=== PATIENT | male | born 1940 | race Caucasian/White ===

== ENCOUNTER 2017-10-12 22:11 | Inpatient (IN) | payer OTHER, MEDICARE ==
[~2017-10-12] VITALS: Ht 152.4 cm; Wt 43.6 kg
[2017-10-12 22:13] VITALS: BP 154/78; PULSE 76; RESP 16; TEMP 98.1; O2SAT 99
[2017-10-12 22:49] VITALS: BP 184/79; PULSE 75; RESP 14; TEMP 98.5; O2SAT 98
[2017-10-12] MEDS ORDERED: TAMS0.4C4 PO (22:59)
[2017-10-12] MEDS ORDERED: DONE10TA7 PO (22:59)
[2017-10-12] MEDS ORDERED: VITA100064 PO (22:59)
[2017-10-12] MEDS ORDERED: OMEP20TA93 PO (22:59)
[2017-10-12] MEDS ORDERED: QUET1TAB7 PO (22:59)
[2017-10-12] MEDS ORDERED: CLON0.5T PO (22:59)
[2017-10-12] MEDS ORDERED: FINA5TAB2 (22:59)
[2017-10-12] MEDS ORDERED: ASPI-516 CHEW (22:59)
[2017-10-12] MEDS ORDERED: SIMV20TA PO (22:59)
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
[2017-10-13 00:21] LABS: AUTOMATED NEUTROPHIL # 5.8 TH/MM3 (1.8-7.7); BASOPHIL % 0.6 % (0.0-2.0); EOSINOPHIL # 0.1 TH/MM3 (0-0.4); HEMATOCRIT 38.4 % (39.0-51.0); LYMPH % 20.7 % (9.0-44.0); LYMPHOCYTE # 1.8 TH/MM3 (1.0-4.8); MEAN CELL VOLUME 93.1 FL (80.0-100.0); MEAN CORPUSCULAR HEMOGLOBIN 31.5 PG (27.0-34.0); MEAN CORPUSCULAR HGB CONC 33.8 % (32.0-36.0); MEAN PLATELET VOLUME 7.3 FL (7.0-11.0); MONO % 10.1 % (0.0-8.0); MONOCYTE # 0.9 TH/MM3 (0-0.9); NEUT % 67.6 % (16.0-70.0); PLATELET COUNT 179 TH/MM3 (150-450); RED BLOOD COUNT 4.12 MIL/MM3 (4.50-5.90); RED CELL DISTRIBUTION WIDTH 12.6 % (11.6-17.2); WHITE BLOOD COUNT 8.6 TH/MM3 (4.0-11.0)
[2017-10-13] MEDS ORDERED: LORazepam 2 MG/ML VIAL IV PUSH ONE (00:30)
[2017-10-13 00:38] LABS: ALBUMIN 3.6 GM/DL (3.4-5.0); AST (GOT) 26 U/L (15-37); BICARBONATE 24.3 MEQ/L (21.0-32.0); BLOOD UREA NITROGEN 16 MG/DL (7-18); CALCIUM 8.4 MG/DL (8.5-10.1); CHLORIDE 105 MEQ/L (98-107); CREATININE 0.91 MG/DL (0.60-1.30); GLOMERULAR FILTRATION RATE 81 ML/MIN (>89); GLUCOSE,RANDOM 77 MG/DL (74-106); SODIUM (NA) 138 MEQ/L (136-145)
[2017-10-13 00:48] LABS: ALKALINE PHOSPHATASE 73 U/L (45-117); ALT (GPT) 13 U/L (12-78); TOTAL BILIRUBIN ADULT 0.3 MG/DL (0.2-1.0); TOTAL PROTEIN 7.3 GM/DL (6.4-8.2)
[2017-10-13 01:57] LABS: FREE T4 1.16 NG/DL (0.76-1.46)
[2017-10-13] MEDS ORDERED: HALOPERIDOL LACTATE 5 MG/ML AMP ONE (03:20)
[2017-10-13] MEDS ORDERED: HALOPERIDOL LACTATE 5 MG/ML AMP IM ONE (03:30)
[2017-10-13 06:46] VITALS: BP 179/78; PULSE 75; RESP 16; O2SAT 97
[2017-10-13 09:01] VITALS: BP 144/67; PULSE 74; RESP 16; O2SAT 98
[2017-10-13 12:30] VITALS: BP 154/72; PULSE 74; RESP 18; O2SAT 97
[2017-10-13] MEDS ORDERED: DONEPEZIL HCL 5 MG TAB PO ONE (14:00)
[2017-10-13] MEDS ORDERED: clonazePAM 0.5 MG TAB PO ONE (14:00)
[2017-10-13] MEDS ORDERED: TAMSULOSIN HCL 0.4 MG CAP PO ONE (14:00)
[2017-10-13] MEDS ORDERED: QUEtiapine FUMARATE 25 MG TAB PO ONE (14:00)
[2017-10-13] MEDS ORDERED: FINASTERIDE 5 MG TAB PO ONE (14:00)
[2017-10-13 18:30] VITALS: BP 146/70
[2017-10-13 20:00] VITALS: BP 132/66; PULSE 92; RESP 16; TEMP 98; O2SAT 98
[2017-10-14 02:40] VITALS: BP 145/70; PULSE 75; RESP 18; O2SAT 98
[2017-10-14 06:35] VITALS: BP 133/65; PULSE 69; RESP 18; O2SAT 98
[2017-10-14 15:27] VITALS: BP 163/71; PULSE 96; RESP 15; O2SAT 98
[2017-10-15 08:34] VITALS: BP 121/59; PULSE 68; RESP 16; TEMP 98.6; O2SAT 99
[2017-10-15 13:52] VITALS: BP 116/56; PULSE 70; RESP 18; O2SAT 99
[2017-10-15 17:44] VITALS: BP 143/65; PULSE 67; RESP 14; O2SAT 99
[2017-10-15 21:38] VITALS: BP 163/67; PULSE 73; RESP 16; O2SAT 99
[2017-10-16 05:51] VITALS: BP 131/62; PULSE 70; RESP 16; O2SAT 98
[2017-10-16 07:20] VITALS: BP 129/65; PULSE 67; RESP 15; TEMP 98; O2SAT 99
[2017-10-16 12:22] VITALS: BP 121/62; PULSE 68; RESP 17; O2SAT 99
[2017-10-16 19:18] VITALS: BP 131/59; PULSE 70; RESP 16; O2SAT 97
[2017-10-17 06:16] VITALS: BP 128/79; PULSE 79; RESP 18; O2SAT 98
[2017-10-17 09:12] VITALS: BP 149/67; PULSE 65; RESP 17; TEMP 98.3; O2SAT 100
[2017-10-17 13:49] VITALS: BP 141/68; PULSE 86; RESP 17; O2SAT 98
[2017-10-17] MEDS ORDERED: CHOLECALCIFEROL (VIT D3) 1000 UNIT TAB PO SCH (15:30)
[2017-10-17] MEDS ORDERED: ASPIRIN 81 MG CHEW TAB CHEW SCH (15:30)
[2017-10-17] MEDS ORDERED: FINASTERIDE 5 MG TAB PO SCH (15:30)
[2017-10-17] MEDS: PANTOPRAZOLE SOD 20 MG DELAYED RELEASE TAB PO SCH (16:54)
[2017-10-17] MEDS ORDERED: QUEtiapine FUMARATE 25 MG TAB PO SCH (21:00)
[2017-10-17] MEDS ORDERED: DONEPEZIL HCL 5 MG TAB PO SCH (21:00)
[2017-10-17] MEDS ORDERED: TAMSULOSIN HCL 0.4 MG CAP PO SCH (21:00)
[2017-10-17 21:09] VITALS: BP 161/76; PULSE 61; RESP 18; O2SAT 98
[2017-10-17] MEDS: clonazePAM 0.5 MG TAB PO SCH (21:11)
[2017-10-18] VITALS (45 sets, daily range): BP systolic 91–156; BP diastolic 48–92; PULSE 56–128; RESP 14–32; TEMP 98.4–103.5; O2SAT 79–100
[2017-10-18] MEDS ORDERED: ETOMIDATE 40 MG/20 ML VIAL ONE (04:41)
[2017-10-18] MEDS ORDERED: PIPERACIL-TAZO 3.375 GM PREMIX 50 ML IV ONE (04:45)
[2017-10-18] MEDS ORDERED: VANCOMYCIN INJ 1,000 MG in SODIUM CHLOR 0.9% 250 ML INJ 250 ML IV ONE (04:45)
[2017-10-18] MEDS ORDERED: ACETAMINOPHEN 650 MG SUPP RECTAL ONE (04:45)
[2017-10-18] MEDS ORDERED: PROPOFOL 500 MG/50 ML INJ 50 ML ONE (04:51)
[2017-10-18] MEDS ORDERED: SODIUM CHLOR 0.9% 1000 ML INJ 1,000 ML IV ONE ×3 (05:00→05:30)
[2017-10-18] MEDS ORDERED: SODIUM CHLOR 0.9% 1000 ML INJ 1,000 ML IV SCH (05:00)
[2017-10-18] MEDS ORDERED: SODIUM CHLORIDE 0.9% FLUSH 10 ML FLUSH IV FLUSH PRN (05:15)
[2017-10-18] MEDS ORDERED: CHLORHEXIDINE GLUCONATE 2 % 1 PACK (2 CLOTHS) TOP PRN (05:15)
[2017-10-18] MEDS ORDERED: ACETAMINOPHEN 325 MG TAB PO PRN (05:15)
[2017-10-18] MEDS ORDERED: BISACODYL 10 MG SUPP RECTAL PRN (05:15)
[2017-10-18] MEDS ORDERED: RESP: ALBUTEROL 2.5 MG/IPRATROPIUM 0.5 MG NEB (PRN) INH (05:15)
[2017-10-18] MEDS ORDERED: SENNOSIDES 8.6 MG TAB PO PRN (05:15)
[2017-10-18] MEDS ORDERED: LACTULOSE SYRUP 20 GM/30 ML CUP PO PRN (05:15)
[2017-10-18] MEDS ORDERED: Vancomycin Consult Pharmacy 1 EA OTHER SCH (05:15)
[2017-10-18] MEDS ORDERED: MAGNESIUM HYDROXIDE SUSP 30 ML CUP PO PRN (05:15)
[2017-10-18] MEDS ORDERED: ONDANSETRON HCL 4 MG/2 ML VIAL IV PUSH PRN (05:15)
[2017-10-18] MEDS ORDERED: MIDAZOLAM HCL 2 MG/2 ML VIAL IV PUSH PRN (05:15)
[2017-10-18] MEDS ORDERED: MISCELLANEOUS NURSING INFORMATION XX SCH (05:15)
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
[2017-10-18] MEDS: HEPARIN SODIUM - SQ 10,000 UNITS/ML VIAL SQ SCH ×3 (06:00→20:38)
[2017-10-18] MEDS ORDERED: AZTREONAM INJ 2,000 MG in SODIUM CHLORIDE 0.9% INJ 100 ML IV SCH (06:00)
[2017-10-18 06:02] LABS: AUTOMATED NEUTROPHIL # 8.4 TH/MM3 (1.8-7.7); BASOPHIL % 0.2 % (0.0-2.0); EOSINOPHIL % 0.4 % (0.0-4.0); HEMATOCRIT 41.8 % (39.0-51.0); HEMOGLOBIN 14.5 GM/DL (13.0-17.0); LYMPH % 5.6 % (9.0-44.0); LYMPHOCYTE # 0.5 TH/MM3 (1.0-4.8); MEAN CELL VOLUME 93.5 FL (80.0-100.0); MEAN CORPUSCULAR HEMOGLOBIN 32.3 PG (27.0-34.0); MEAN CORPUSCULAR HGB CONC 34.6 % (32.0-36.0); MEAN PLATELET VOLUME 7.8 FL (7.0-11.0); MONO % 4.9 % (0.0-8.0); MONOCYTE # 0.5 TH/MM3 (0-0.9); NEUT % 88.9 % (16.0-70.0); PLATELET COUNT 243 TH/MM3 (150-450); RED BLOOD COUNT 4.48 MIL/MM3 (4.50-5.90); RED CELL DISTRIBUTION WIDTH 13.1 % (11.6-17.2); WHITE BLOOD COUNT 9.4 TH/MM3 (4.0-11.0)
--- NOTE | 2017-10-18 06:18 | RADRPT ---
EXAM DATE/TIME: 10/18/2017 05:06 [facility] COMPARISON: No previous studies available for comparison. INDICATIONS : Shortness of breath. Status post intubation. MEDICAL HISTORY : None. SURGICAL HISTORY : None. ENCOUNTER: Initial ACUITY: 1 day PAIN SCORE: Non-responsive. LOCATION: chest FINDINGS: Mild right base infiltrate seen, appears to mostly be in the lower lobe. Lungs otherwise appear reaso nably clear. No pleural effusion. No pneumothorax. Heart size within normal limits. Endotracheal tube tip is approximately 1.4 cm above the jay. Nasogastric tube courses into the sto mach. CONCLUSION: 1. Mild right base infiltrate. 2. Endotracheal tube tip is close to the jay. Dinesh Bal MD on October 18, 2017 at 6:16 Board Certified Radiologist. This report was verified electronically.
[2017-10-18 06:33] LABS: ALBUMIN 3.3 GM/DL (3.4-5.0); ALT (GPT) 18 U/L (12-78); AST (GOT) 21 U/L (15-37); BICARBONATE 23.9 MEQ/L (21.0-32.0); BLOOD UREA NITROGEN 20 MG/DL (7-18); CALCIUM 8.2 MG/DL (8.5-10.1); CHLORIDE 102 MEQ/L (98-107); CREATININE 1.16 MG/DL (0.60-1.30); GLOMERULAR FILTRATION RATE 61 ML/MIN (>89); GLUCOSE,RANDOM 172 MG/DL (74-106); MAGNESIUM 2.3 MG/DL (1.5-2.5); PHOSPHORUS 3.7 MG/DL (2.5-4.9); SODIUM (NA) 138 MEQ/L (136-145)
[2017-10-18 06:35] LABS: ALKALINE PHOSPHATASE 79 U/L (45-117); TOTAL BILIRUBIN ADULT 0.5 MG/DL (0.2-1.0); TOTAL PROTEIN 7.2 GM/DL (6.4-8.2)
[2017-10-18] MEDS: SODIUM CHLOR 0.9% 1000 ML INJ 1,000 ML IV SCH ×2 (06:36→14:12)
[2017-10-18] MEDS: CHLORHEXIDINE 0.12% (ORAL KIT) 15 ML CUP MT SCH ×2 (08:00→20:00)
[2017-10-18] MEDS: PANTOPRAZOLE SOD 20 MG DELAYED RELEASE TAB PO SCH (09:00)
[2017-10-18] MEDS ORDERED: FINASTERIDE 5 MG TAB SCH (09:00)
[2017-10-18] MEDS: RESP: ALBUTEROL 2.5 MG/IPRATROPIUM 0.5 MG NEB (SCH) INH ×5 (09:20→22:53)
[2017-10-18] MEDS: FAMOTIDINE 20 MG/2 ML VIAL IV PUSH SCH ×2 (09:36→20:38)
[2017-10-18] MEDS: PRAVASTATIN SOD 40 MG TAB PO SCH (09:37)
[2017-10-18] MEDS: SODIUM CHLORIDE 0.9% FLUSH 10 ML FLUSH IV FLUSH SCH ×2 (09:37→20:39)
[2017-10-18] MEDS: CHOLECALCIFEROL (VIT D3) 1000 UNIT TAB PO SCH (09:37)
[2017-10-18] MEDS: FINASTERIDE 5 MG TAB PO SCH (09:37)
[2017-10-18] MEDS: DOCUSATE SODIUM 50 MG/SENNA 8.6 MG TAB PO SCH ×2 (09:37→20:37)
[2017-10-18] MEDS: clonazePAM 0.5 MG TAB PO SCH ×2 (09:37→20:37)
[2017-10-18] MEDS: ASPIRIN 81 MG CHEW TAB CHEW SCH (09:37)
[2017-10-18] MEDS: ARTIFICIAL TEARS OPTH SOLN 15 ML BTL EACH EYE SCH ×3 (09:39→18:09)
[2017-10-18] MEDS: PIPERACIL-TAZO 4.5 GM PREMIX 100 ML IV SCH ×3 (10:44→23:06)
[2017-10-18] MEDS ORDERED: POTASSIUM PHOSPHATE MONOBASIC 500 MG TAB PO/TUBE PRN (12:00)
[2017-10-18] MEDS ORDERED: MAGNESIUM SULFATE INJ 2 GM in SODIUM CHLORIDE 0.9% INJ 96 ML IV PRN (12:00)
[2017-10-18] MEDS ORDERED: POTASSIUM CHLOR 20 MEQ PREMIX 100 ML IV PRN (12:00)
[2017-10-18] MEDS ORDERED: POTASSIUM CHLOR 40 MEQ PREMIX 100 ML IV PRN ×2 (12:00)
[2017-10-18] MEDS ORDERED: GLUCAGON 1 MG/ML VIAL OTHER PRN (12:00)
[2017-10-18] MEDS ORDERED: SODIUM PHOSPHATE INJ 30 MMOL in SODIUM CHLOR 0.9% 250 ML INJ 240 ML IV PRN (12:00)
[2017-10-18] MEDS: INSULIN NovoLIN REGULAR SUPPLEMENTAL SCALE SQ SCH ×3 (12:00→20:00)
[2017-10-18] MEDS ORDERED: POTASSIUM CHLORIDE 25 MEQ EFFERVESCENT TAB PO PRN (12:00)
[2017-10-18] MEDS ORDERED: MAGNESIUM SULFATE INJ 4 GM in SODIUM CHLORIDE 0.9% INJ 92 ML IV PRN (12:00)
[2017-10-18] MEDS ORDERED: POTASSIUM PHOSPHATE MONOBASIC 500 MG TAB PO PRN (12:00)
[2017-10-18] MEDS ORDERED: MAGNESIUM OXIDE 400 MG TAB PO PRN (12:00)
[2017-10-18] MEDS ORDERED: POTASSIUM PHOSPHATE INJ 30 MMOL in SODIUM CHLOR 0.9% 250 ML INJ 250 ML IV PRN (12:00)
[2017-10-18 13:30] LABS: BACTERIA, URINE RARE /hpf; BILIRUBIN, URINE NEG (NEG); BLOOD, URINE MOD (NEG); GLUCOSE,URINE NEG (NEG); KETONE, URINE TRACE mg/dL (NEG); MUCUS URINE FEW /lpf (OCC); NITRITE,URINE NEG (NEG); SQUAMOUS EPITHELIAL CELL URINE <1 /hpf (0-5); URINE COLOR YELLOW (YELLW/STRAW); URINE LEUKOCYTE ESTERASE LARGE (NEG); WHITE BLOOD CELL CLUMPS MANY
[2017-10-18] MEDS: PROPOFOL 1000 MG/100 ML INJ 100 ML IV PRN (14:12)
[2017-10-18] MEDS: POTASSIUM CHLOR 20 MEQ PREMIX 100 ML IV PRN (15:56)
[2017-10-18] MEDS ORDERED: DEXTROSE 50% IN WATER 50 ML SYRINGE ONE (17:13)
[2017-10-18] MEDS: DEXTROSE 50% IN WATER 50 ML VIAL(D50) IV PUSH PRN (18:08)
[2017-10-18] MEDS: QUEtiapine FUMARATE 25 MG TAB PO SCH (20:37)
[2017-10-18] MEDS: TAMSULOSIN HCL 0.4 MG CAP PO SCH (20:37)
[2017-10-18] MEDS: DONEPEZIL HCL 5 MG TAB PO SCH (20:38)
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
[2017-10-18] MEDS: AZITHROMYCIN INJ 500 MG in SODIUM CHLOR 0.9% 250 ML INJ 250 ML IV SCH (22:29)
[2017-10-19] VITALS (18 sets, daily range): BP systolic 16–153; BP diastolic 42–99; PULSE 66–123; RESP 14–18; TEMP 98.3–99.5; O2SAT 98–100
[2017-10-19] MEDS: RESP: ALBUTEROL 2.5 MG/IPRATROPIUM 0.5 MG NEB (SCH) INH ×6 (02:53→23:04)
[2017-10-19] MEDS: INSULIN NovoLIN REGULAR SUPPLEMENTAL SCALE SQ SCH ×7 (04:00→23:01)
[2017-10-19] MEDS: CHLORHEXIDINE GLUCONATE 2 % 1 PACK (2 CLOTHS) TOP SCH (04:00)
[2017-10-19 04:30] LABS: AUTOMATED NEUTROPHIL # 8.1 TH/MM3 (1.8-7.7); BASOPHIL % 0.5 % (0.0-2.0); EOSINOPHIL # 0.1 TH/MM3 (0-0.4); EOSINOPHIL % 1.1 % (0.0-4.0); HEMATOCRIT 30.7 % (39.0-51.0); HEMOGLOBIN 10.4 GM/DL (13.0-17.0); LYMPH % 11.4 % (9.0-44.0); LYMPHOCYTE # 1.1 TH/MM3 (1.0-4.8); MEAN CELL VOLUME 92.9 FL (80.0-100.0); MEAN CORPUSCULAR HEMOGLOBIN 31.4 PG (27.0-34.0); MEAN CORPUSCULAR HGB CONC 33.8 % (32.0-36.0); MEAN PLATELET VOLUME 7.5 FL (7.0-11.0); MONO % 6.9 % (0.0-8.0); MONOCYTE # 0.7 TH/MM3 (0-0.9); NEUT % 80.1 % (16.0-70.0); PLATELET COUNT 152 TH/MM3 (150-450); RED BLOOD COUNT 3.31 MIL/MM3 (4.50-5.90); RED CELL DISTRIBUTION WIDTH 12.9 % (11.6-17.2); WHITE BLOOD COUNT 10.1 TH/MM3 (4.0-11.0)
[2017-10-19 04:46] LABS: INTERNATIONAL NORMALIZED RATIO 1.2 RATIO
[2017-10-19 04:51] LABS: ALBUMIN 2.2 GM/DL (3.4-5.0); BICARBONATE 23.1 MEQ/L (21.0-32.0); CALCIUM 7.4 MG/DL (8.5-10.1); CREATININE 0.77 MG/DL (0.60-1.30); MAGNESIUM 2.1 MG/DL (1.5-2.5); PHOSPHORUS 1.6 MG/DL (2.5-4.9)
[2017-10-19 05:02] LABS: CALCIUM-PROTEIN CORRECTED 8.5 MG/DL (8.5-10.1); TOTAL BILIRUBIN ADULT 0.3 MG/DL (0.2-1.0); TOTAL PROTEIN 5.2 GM/DL (6.4-8.2)
[2017-10-19] MEDS: HEPARIN SODIUM - SQ 10,000 UNITS/ML VIAL SQ SCH ×3 (05:56→20:36)
[2017-10-19] MEDS: PIPERACIL-TAZO 4.5 GM PREMIX 100 ML IV SCH ×4 (05:57→22:55)
[2017-10-19] MEDS: VANCOMYCIN 500 MG/NS 100 ML IV SCH ×2 (06:00)
--- NOTE | 2017-10-19 06:13 | RADRPT ---
EXAM DATE/TIME: 10/19/2017 04:35 [facility] COMPARISON: Yesterday. INDICATIONS : Shortness of breath, possible pulmonary disease. MEDICAL HISTORY : None. SURGICAL HISTORY : None. ENCOUNTER: Subsequent ACUITY: 2 days PAIN SCORE: Non-responsive. LOCATION: Bilateral chest FINDINGS: No perceptible infiltrate. No pleural effusion or pneumothorax seen. Heart size stable, normal. Endotracheal tube tip is approximately 13 mm above the jay, not signifi cantly changed. Nasogastric tube tip is in the stomach. CONCLUSION: No infiltrates seen. Endotracheal tube tip close to the jay. Dinesh Bal MD on October 19, 2017 at 6:10 Board Certified Radiologist. This report was verified electronically.
[2017-10-19] MEDS: SODIUM CHLOR 0.9% 1000 ML INJ 1,000 ML IV SCH ×2 (06:47→16:44)
[2017-10-19] MEDS: CHLORHEXIDINE 0.12% (ORAL KIT) 15 ML CUP MT SCH ×2 (08:00→20:00)
[2017-10-19] MEDS: FINASTERIDE 5 MG TAB PO SCH (09:00)
[2017-10-19] MEDS: PRAVASTATIN SOD 40 MG TAB PO SCH (09:43)
[2017-10-19] MEDS: CHOLECALCIFEROL (VIT D3) 1000 UNIT TAB PO SCH (09:44)
[2017-10-19] MEDS: DOCUSATE SODIUM 50 MG/SENNA 8.6 MG TAB PO SCH ×2 (09:44→20:37)
[2017-10-19] MEDS: FAMOTIDINE 20 MG/2 ML VIAL IV PUSH SCH ×2 (09:44→20:36)
[2017-10-19] MEDS: clonazePAM 0.5 MG TAB PO SCH ×2 (09:44→20:37)
[2017-10-19] MEDS: ARTIFICIAL TEARS OPTH SOLN 15 ML BTL EACH EYE SCH ×3 (09:45→18:54)
[2017-10-19] MEDS: ASPIRIN 81 MG CHEW TAB CHEW SCH (09:45)
[2017-10-19] MEDS: SODIUM CHLORIDE 0.9% FLUSH 10 ML FLUSH IV FLUSH SCH ×2 (09:45→20:35)
[2017-10-19] MEDS: PROPOFOL 1000 MG/100 ML INJ 100 ML IV PRN (09:46)
--- NOTE | 2017-10-19 18:39 | HHI.IDPN ---
Subjective Subjective Remarks doing well afebrile + large amount od ETT secretions Antibiotics azithro vancomycin zosyn Allergies: Coded Allergies: No Known Allergies (Unverified , 10/12/17) Objective . Vital Signs Date Time Temp Pulse Resp B/P (MAP) Pulse Ox O2 Delivery O2 Flow Rate FiO2 10/19/17 15:10 100 35 10/19/17 11:04 100 35 10/19/17 10:00 90 10/19/17 07:25 100 35 10/19/17 06:00 79 10/19/17 04:21 100 35 10/19/17 04:00 98.5 69 14 91/46 (61) 100 10/19/17 04:00 69 10/19/17 02:00 66 10/19/17 00:02 100 35 10/19/17 00:00 98.4 67 15 84/42 (56) 100 10/19/17 00:00 67 10/18/17 22:00 66 10/18/17 20:00 98.7 64 14 113/54 (73) 100 10/18/17 20:00 64 10/18/17 19:40 100 35 . Laboratory Tests Test 10/18/17 05:29 10/19/17 04:20 White Blood Count 9.4 TH/MM3 10.1 TH/MM3 Red Blood Count 4.48 MIL/MM3 3.31 MIL/MM3 Hemoglobin 14.5 GM/DL 10.4 GM/DL Hematocrit 41.8 % 30.7 % Mean Corpuscular Volume 93.5 FL 92.9 FL Mean Corpuscular Hemoglobin 32.3 PG 31.4 PG Mean Corpuscular Hemoglobin Concent 34.6 % 33.8 % Red Cell Distribution Width 13.1 % 12.9 % Platelet Count 243 TH/MM3 152 TH/MM3 Mean Platelet Volume 7.8 FL 7.5 FL Neutrophils (%) (Auto) 88.9 % 80.1 % Lymphocytes (%) (Auto) 5.6 % 11.4 % Monocytes (%) (Auto) 4.9 % 6.9 % Eosinophils (%) (Auto) 0.4 % 1.1 % Basophils (%) (Auto) 0.2 % 0.5 % Neutrophils # (Auto) 8.4 TH/MM3 8.1 TH/MM3 Lymphocytes # (Auto) 0.5 TH/MM3 1.1 TH/MM3 Monocytes # (Auto) 0.5 TH/MM3 0.7 TH/MM3 Eosinophils # (Auto) 0.0 TH/MM3 0.1 TH/MM3 Basophils # (Auto) 0.0 TH/MM3 0.0 TH/MM3 CBC Comment DIFF FINAL DIFF FINAL Differential Comment Laboratory Tests Test 10/18/17 05:29 10/18/17 17:15 10/19/17 04:20 Blood Urea Nitrogen 20 MG/DL 17 MG/DL Creatinine 1.16 MG/DL 0.77 MG/DL Random Glucose 172 MG/DL 129 MG/DL Total Protein 7.2 GM/DL 5.2 GM/DL Albumin 3.3 GM/DL 2.2 GM/DL Calcium Level 8.2 MG/DL 7.4 MG/DL Phosphorus Level 3.7 MG/DL 3.4 MG/DL 1.6 MG/DL Magnesium Level 2.3 MG/DL 2.1 MG/DL Alkaline Phosphatase 79 U/L 56 U/L Aspartate Amino Transf (AST/SGOT) 21 U/L 32 U/L Alanine Aminotransferase (ALT/SGPT) 18 U/L 23 U/L Total Bilirubin 0.5 MG/DL 0.3 MG/DL Sodium Level 138 MEQ/L 145 MEQ/L Potassium Level 3.4 MEQ/L 3.7 MEQ/L Chloride Level 102 MEQ/L 115 MEQ/L Carbon Dioxide Level 23.9 MEQ/L 23.1 MEQ/L Anion Gap 12 MEQ/L 7 MEQ/L Estimat Glomerular Filtration Rate 61 ML/MIN 98 ML/MIN Lactic Acid Level 1.2 mmol/L Protein Corrected Calcium 8.5 MG/DL Microbiology Date/Time Source Procedure Growth Status 10/18/17 05:45 Blood Peripheral Aerobic Blood Culture - Preliminary NO GROWTH IN 1 DAY Resulted 10/18/17 05:45 Blood Peripheral Anaerobic Blood Culture - Preliminary NO GROWTH IN 1 DAY Resulted 10/18/17 05:25 Blood Peripheral Aerobic Blood Culture - Preliminary NO GROWTH IN 1 DAY Resulted 10/18/17 05:25 Blood Peripheral Anaerobic Blood Culture - Preliminary NO GROWTH IN 1 DAY Resulted 10/18/17 08:00 Nasal Washing Influenza Types A,B Antigen (EZEQUIEL) - Final NEGATIVE FOR FLU A AND B ANTIGEN.... Complete 10/18/17 06:01 Sputum Endotracheal Gram Stain - Final Resulted 10/18/17 06:01 Sputum Endotracheal Sputum Culture - Preliminary IMMATURE GROWTH - REINCUBATE Resulted 10/18/17 12:45 Urine Catheterized Urine Urine Culture - Preliminary NO GROWTH IN 24 HOURS. Resulted 10/18/17 12:45 Urine Catheterized Urine Streptococcus pneumoniae Antigen (M - Final PRESUMPTIVE NEGATIVE FOR STREPTOCOCCU... Complete 10/18/17 12:45 Urine Catheterized Urine Legionella Antigen - Final PRESUMPTIVE NEGATIVE FOR LEGIONELLA P... Complete 10/18/17 05:41 Urine Catheterized Urine Urine Culture - Preliminary Gram Variable Rohan Resulted Imaging Last Impressions Chest X-Ray 10/19/17 0600 Signed Impressions: Service Date/Time: Thursday, October 19, 2017 04:35 - CONCLUSION: No infiltrates seen. Endotracheal tube tip close to the jay. Dinesh Bal MD Physical Exam CONSTITUTIONAL/GENERAL: This is a thin elderly patient, in no apparent distress. TUBES/LINES/DRAINS: SKIN: No jaundice, rashes, or lesions. Skin temperature appropriate. Not diaphoretic. CARDIOVASCULAR: Regular rate and rhythm without murmurs, gallops, or rubs. No JVD. Peripheral pulses symmetric. RESPIRATORY/CHEST: Symmetric, unlabored respirations. Clear to auscultation. Breath sounds equal bilaterally. No wheezes, rales, or rhonchi. GASTROINTESTINAL: Abdomen soft, non-tender, nondistended. No hepato-splenomegaly , or palpable masses. No guarding. Bowel sounds present. GENITOURINARY: Without palpable bladder distension. Aleman catheter in place with clear yellow urine MUSCULOSKELETAL: Extremities without clubbing, cyanosis, or edema. No joint tenderness or effusion noted. No calf tenderness. No mottling or clubbing. LYMPHATICS: No palpable cervical or supraclavicular adenopathy. NEUROLOGICAL: arousable withh stimyulation PSYCHIATRIC: not agitated Assessment & Plan Remarks Assessment and Plan PNA, RLL Resp failure UTI, growing Gram varible rohan sepsis (fever, hypotenstion on presentaiton) cont zosyn, vanco cont azithro RESP PANEL Discussed Condition With Dorinda Robbins MD Oct 19, 2017 18:39
[2017-10-19] MEDS: AZITHROMYCIN INJ 500 MG in SODIUM CHLOR 0.9% 250 ML INJ 250 ML IV SCH (20:37)
[2017-10-19] MEDS: QUEtiapine FUMARATE 25 MG TAB PO SCH (20:37)
[2017-10-19] MEDS: TAMSULOSIN HCL 0.4 MG CAP PO SCH ×2 (20:37→21:00)
[2017-10-19] MEDS: DONEPEZIL HCL 5 MG TAB PO SCH (20:38)
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
[2017-10-20] VITALS (18 sets, daily range): BP systolic 124–152; BP diastolic 57–67; PULSE 70–100; RESP 15–20; TEMP 98.9–99.7; O2SAT 98–100
[2017-10-20] MEDS ORDERED: LORazepam 2 MG/ML VIAL IV PUSH ONE (00:30)
[2017-10-20] MEDS ORDERED: DIATRIZOATE MEGLUM/DIATRIZOATE SOD 9 ML CUP PO ONE (00:43)
[2017-10-20] MEDS ORDERED: IOHEXOL 350 MG/ML 10 ML VIAL (for RAD DIAG) IVCONTRAST ONE (01:42)
--- NOTE | 2017-10-20 02:17 | RADRPT ---
EXAM DATE/TIME: 10/20/2017 01:37 [facility] COMPARISON: No previous studies available for comparison. INDICATIONS : Altered mental status. RADIATION DOSE: 66.34 CTDIvol (mGy) MEDICAL HISTORY : Dementia. SURGICAL HISTORY : Non-responsive. ENCOUNTER: Initial ACUITY: 1 week PAIN SCALE: Non-responsive LOCATION: cranial TECHNIQUE: Multiple contiguous axial images were obtained of the head. Using automated exposure control and adj ustment of the mA and/or kV according to patient size, radiation dose was kept as low as reasonably a chievable to obtain optimal diagnostic quality images. DICOM format image data is available electro nically for review and comparison. FINDINGS: CEREBRUM: The ventricles are normal for age. No evidence of midline shift, mass lesion, hemorrhage or acute in farction. No extra-axial fluid collections are seen. Chronic low attenuation seen in the periventric ular white matter. POSTERIOR FOSSA: The cerebellum and brainstem are intact. The 4th ventricle is midline. The cerebellopontine angle i s unremarkable. EXTRACRANIAL: The visualized portion of the orbits is intact. SKULL: The calvaria is intact. No evidence of skull fracture. CONCLUSION: No acute intracranial abnormality. Chronic white matter changes. Dinesh Bal MD on October 20, 2017 at 1:55 Board Certified Radiologist. This report was verified electronically.
--- NOTE | 2017-10-20 02:17 | RADRPT ---
EXAM DATE/TIME: 10/20/2017 01:41 [facility] COMPARISON: No previous studies available for comparison. INDICATIONS : Sepsis. IV CONTRAST: 98 cc Omnipaque 350 (iohexol) IV ORAL CONTRAST: No oral contrast ingested. RADIATION DOSE: 6.64 CTDIvol (mGy) MEDICAL HISTORY : Dementia. SURGICAL HISTORY : Non-responsive. ENCOUNTER: Initial ACUITY: 1 week PAIN SCALE: Non-responsive LOCATION: abdomen TECHNIQUE: Volumetric scanning of the abdomen and pelvis was performed. Using automated exposure control and ad justment of the mA and/or kV according to patient size, radiation dose was kept as low as reasonably achievable to obtain optimal diagnostic quality images. DICOM format image data is available electro nically for review and comparison. FINDINGS: Several sub-3 mm stones are seen mid zone the lower pole the right kidney but these all appear to be nonobstructing. There is prominence of a right extrarenal pelvis and also mild right calyceal distent ion. The ureter is not distended and this is most likely on the basis of congenital mild UPJ obstruct ion. No hydronephrosis or hydroureter on the left. The liver, spleen, pancreas and adrenal glands are all within normal limits. Gallbladder contracted, grossly unremarkable. Large amount of stool in the rectum. No perceptible mass or inflammatory changes. Urinary bladder is decompressed with a Aleman catheter. Dependent consolidation of the visualized right lung base and there is a tiny pleural effusion on the left. Nasogastric tube coiled in the stomach. CONCLUSION: 1. No abscess, high-grade inflammatory changes or other clear etiology in the abdomen or pelvis for r eported sepsis. 2. Right base consolidation. 3. 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 4. Tiny nonobstructing stones of the right kidney. 5. Aleman catheter and nasogastric tube present. 1. Dinesh Bal MD on October 20, 2017 at 1:59 Board Certified Radiologist. This report was verified electronically.
[2017-10-20 02:30] LABS: FREE T3 1.4 PG/ML (2.18-3.98)
[2017-10-20] MEDS: INSULIN NovoLIN REGULAR SUPPLEMENTAL SCALE SQ SCH ×6 (03:03→23:23)
[2017-10-20] MEDS: CHLORHEXIDINE GLUCONATE 2 % 1 PACK (2 CLOTHS) TOP SCH (03:04)
[2017-10-20] MEDS: RESP: ALBUTEROL 2.5 MG/IPRATROPIUM 0.5 MG NEB (SCH) INH ×6 (03:38→23:24)
[2017-10-20] MEDS: PIPERACIL-TAZO 4.5 GM PREMIX 100 ML IV SCH ×4 (05:00→22:46)
[2017-10-20] MEDS: HEPARIN SODIUM - SQ 10,000 UNITS/ML VIAL SQ SCH ×3 (05:14→20:50)
[2017-10-20] MEDS: SODIUM CHLOR 0.9% 1000 ML INJ 1,000 ML IV SCH ×2 (05:14→19:24)
[2017-10-20] MEDS: VANCOMYCIN 500 MG/NS 100 ML IV SCH ×2 (06:20)
[2017-10-20] MEDS: CHLORHEXIDINE 0.12% (ORAL KIT) 15 ML CUP MT SCH ×2 (08:00→20:00)
[2017-10-20] MEDS: ARTIFICIAL TEARS OPTH SOLN 15 ML BTL EACH EYE SCH ×3 (09:00→17:20)
[2017-10-20] MEDS: FINASTERIDE 5 MG TAB PO SCH (09:00)
[2017-10-20] MEDS: FAMOTIDINE 20 MG/2 ML VIAL IV PUSH SCH (09:50)
[2017-10-20] MEDS: SODIUM CHLORIDE 0.9% FLUSH 10 ML FLUSH IV FLUSH SCH ×2 (09:50→20:51)
[2017-10-20] MEDS: PROPOFOL 1000 MG/100 ML INJ 100 ML IV PRN (09:52)
[2017-10-20] MEDS: clonazePAM 0.5 MG TAB PO SCH ×2 (11:07→20:50)
[2017-10-20] MEDS: PRAVASTATIN SOD 40 MG TAB PO SCH (11:07)
[2017-10-20] MEDS: DOCUSATE SODIUM 50 MG/SENNA 8.6 MG TAB PO SCH (11:07)
[2017-10-20] MEDS: ASPIRIN 81 MG CHEW TAB CHEW SCH (11:07)
[2017-10-20] MEDS: CHOLECALCIFEROL (VIT D3) 1000 UNIT TAB PO SCH (11:08)
[2017-10-20] MEDS ORDERED: ACETAMINOPHEN 650 MG/20.3 ML UDC NG PRN (14:45)
[2017-10-20] MEDS ORDERED: RESP: ALBUTEROL 2.5 MG/3 ML NEB (PRN) NEB (14:45)
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
[2017-10-20] MEDS ORDERED: GLYCERIN ADULT 2 GM SUPP RECTAL ONE (15:00)
[2017-10-20] MEDS ORDERED: METHYLNALTREXONE BROMIDE 12 MG/0.6 ML VIAL SQ ONE (15:00)
[2017-10-20] MEDS ORDERED: MINERAL OIL LIQUID 30 ML CUP PO ONE (15:00)
[2017-10-20] MEDS ORDERED: POLYETHYLENE GLYCOL 17 GM PKG PO ONE (15:00)
[2017-10-20] MEDS ORDERED: DOCUSATE SODIUM 100 MG/10 ML UDC PO ONE (15:00)
--- NOTE | 2017-10-20 16:34 | RADRPT ---
EXAM DATE/TIME: 10/20/2017 16:35 [facility] COMPARISON: CT BRAIN W/O CONTRAST, October 20, 2017, 1:37. INDICATIONS : Altered mental status. Sepsis. MEDICAL HISTORY : Unknown SURGICAL HISTORY : Cleared by Dr Field. ENCOUNTER: Initial ACUITY: 2 day PAIN SCORE: 0/10 LOCATION: cranial TECHNIQUE: Multiplanar, multisequence MRI of the brain was performed without contrast. FINDINGS: CEREBRUM: The ventricles are normal for age. There is bilateral cortical atrophy. No evidence of midline shift , mass lesion, hemorrhage or acute infarction. No extraaxial fluid collections are seen. The pituit mila gland and suprasellar cistern are normal in configuration. WHITE MATTER: There is moderate chronic white matter changes bilaterally characteristic of ischemic demyelinization . POSTERIOR FOSSA: The cerebellum and brainstem are intact. The 4th ventricle is midline. The cerebellopontine angle is unremarkable. The cerebellar tonsils are normal in position. DIFFUSION IMAGING: No focal areas of restricted diffusion are seen. No evidence of acute infarction. EXTRACRANIAL: The visualized portions of the orbits and paranasal sinuses are unremarkable. CONCLUSION: 1. No acute pathology. 2. Bilateral cortical atrophy and chronic white matter changes. Nino Field MD on October 20, 2017 at 16:32 Board Certified Radiologist. This report was verified electronically.
[2017-10-20] MEDS: LACTULOSE SYRUP 20 GM/30 ML CUP PO SCH ×2 (17:18→20:50)
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
[2017-10-20 20:39] LABS: HEMATOCRIT 32.6 % (39.0-51.0); HEMOGLOBIN 11.1 GM/DL (13.0-17.0); MEAN CELL VOLUME 92.3 FL (80.0-100.0); MEAN CORPUSCULAR HEMOGLOBIN 31.4 PG (27.0-34.0); PLATELET COUNT 190 TH/MM3 (150-450); RED BLOOD COUNT 3.53 MIL/MM3 (4.50-5.90); RED CELL DISTRIBUTION WIDTH 12.7 % (11.6-17.2); WHITE BLOOD COUNT 9.6 TH/MM3 (4.0-11.0)
[2017-10-20] MEDS: TAMSULOSIN HCL 0.4 MG CAP PO SCH (20:48)
[2017-10-20] MEDS: DONEPEZIL HCL 5 MG TAB PO SCH (20:48)
[2017-10-20] MEDS: FAMOTIDINE 20 MG TAB NG SCH (20:48)
[2017-10-20] MEDS: DOCUSATE SODIUM 100 MG/10 ML UDC PO SCH (20:48)
[2017-10-20] MEDS: AZITHROMYCIN INJ 500 MG in SODIUM CHLOR 0.9% 250 ML INJ 250 ML IV SCH (20:49)
[2017-10-20] MEDS: SENNOSIDES SYRUP 8.8 MG/5 ML CUP PO SCH (20:50)
[2017-10-20] MEDS: POLYETHYLENE GLYCOL 17 GM PKG PO SCH (20:50)
[2017-10-20 20:52] LABS: BICARBONATE 27.9 MEQ/L (21.0-32.0); CALCIUM 8.2 MG/DL (8.5-10.1); CREATININE 1.04 MG/DL (0.60-1.30); MAGNESIUM 2.2 MG/DL (1.5-2.5); PHOSPHORUS 1.7 MG/DL (2.5-4.9)
[2017-10-20] MEDS ORDERED: DEXT 5%-NACL 0.9% 1000 ML INJ 1,000 ML IV SCH (21:00)
[2017-10-21] VITALS (18 sets, daily range): BP systolic 125–133; BP diastolic 57–63; PULSE 61–91; RESP 12–17; TEMP 98.4–99.5; O2SAT 98–100
[2017-10-21] MEDS: RESP: ALBUTEROL 2.5 MG/IPRATROPIUM 0.5 MG NEB (SCH) INH ×6 (03:31→23:37)
[2017-10-21] MEDS: INSULIN NovoLIN REGULAR SUPPLEMENTAL SCALE SQ SCH ×5 (04:00→20:00)
[2017-10-21] MEDS: CHLORHEXIDINE GLUCONATE 2 % 1 PACK (2 CLOTHS) TOP SCH (04:00)
[2017-10-21] MEDS: PROPOFOL 1000 MG/100 ML INJ 100 ML IV PRN (04:28)
[2017-10-21] MEDS: PIPERACIL-TAZO 4.5 GM PREMIX 100 ML IV SCH ×3 (04:28→16:39)
[2017-10-21] MEDS: HEPARIN SODIUM - SQ 10,000 UNITS/ML VIAL SQ SCH ×3 (04:29→20:10)
[2017-10-21 05:20] LABS: AUTOMATED NEUTROPHIL # 5.7 TH/MM3 (1.8-7.7); BASOPHIL % 0.5 % (0.0-2.0); EOSINOPHIL # 0.2 TH/MM3 (0-0.4); EOSINOPHIL % 2.5 % (0.0-4.0); HEMATOCRIT 32.1 % (39.0-51.0); HEMOGLOBIN 10.9 GM/DL (13.0-17.0); LYMPH % 9.7 % (9.0-44.0); LYMPHOCYTE # 0.7 TH/MM3 (1.0-4.8); MEAN CELL VOLUME 93.7 FL (80.0-100.0); MEAN CORPUSCULAR HEMOGLOBIN 31.7 PG (27.0-34.0); MEAN CORPUSCULAR HGB CONC 33.8 % (32.0-36.0); MEAN PLATELET VOLUME 7.8 FL (7.0-11.0); MONO % 8.9 % (0.0-8.0); MONOCYTE # 0.7 TH/MM3 (0-0.9); NEUT % 78.4 % (16.0-70.0); PLATELET COUNT 184 TH/MM3 (150-450); RED BLOOD COUNT 3.43 MIL/MM3 (4.50-5.90); WHITE BLOOD COUNT 7.3 TH/MM3 (4.0-11.0)
[2017-10-21 05:43] LABS: ALBUMIN 2.5 GM/DL (3.4-5.0); BICARBONATE 26.2 MEQ/L (21.0-32.0); BLOOD UREA NITROGEN 13 MG/DL (7-18); CALCIUM 7.5 MG/DL (8.5-10.1); CHLORIDE 115 MEQ/L (98-107); CREATININE 0.84 MG/DL (0.60-1.30); GLOMERULAR FILTRATION RATE 89 ML/MIN (>89); GLUCOSE,RANDOM 131 MG/DL (74-106); MAGNESIUM 2.4 MG/DL (1.5-2.5); SODIUM (NA) 148 MEQ/L (136-145)
[2017-10-21 05:58] LABS: ALKALINE PHOSPHATASE 69 U/L (45-117); ALT (GPT) 30 U/L (12-78); AST (GOT) 26 U/L (15-37); PHOSPHORUS 2.3 MG/DL (2.5-4.9); TOTAL BILIRUBIN ADULT 0.2 MG/DL (0.2-1.0); TOTAL PROTEIN 6.2 GM/DL (6.4-8.2); VANCOMYCIN TROUGH 1.1 MCG/ML (5.0-10.0)
[2017-10-21] MEDS ORDERED: PHARMACY ORDERED LAB ONE (06:45)
[2017-10-21] MEDS: CHLORHEXIDINE 0.12% (ORAL KIT) 15 ML CUP MT SCH ×2 (08:00→20:00)
[2017-10-21] MEDS: DOCUSATE SODIUM 100 MG/10 ML UDC PO SCH ×2 (08:37→20:13)
[2017-10-21] MEDS: SENNOSIDES SYRUP 8.8 MG/5 ML CUP PO SCH ×2 (08:37→20:10)
[2017-10-21] MEDS: CHOLECALCIFEROL (VIT D3) 1000 UNIT TAB PO SCH (08:37)
[2017-10-21] MEDS: LACTULOSE SYRUP 20 GM/30 ML CUP PO SCH ×4 (08:37→20:09)
[2017-10-21] MEDS: POLYETHYLENE GLYCOL 17 GM PKG PO SCH ×2 (08:37→20:10)
[2017-10-21] MEDS: FAMOTIDINE 20 MG TAB NG SCH ×2 (08:37→20:11)
[2017-10-21] MEDS: PRAVASTATIN SOD 40 MG TAB PO SCH (08:37)
[2017-10-21] MEDS: clonazePAM 0.5 MG TAB PO SCH ×2 (08:37→20:11)
[2017-10-21] MEDS: ASPIRIN 81 MG CHEW TAB CHEW SCH (08:37)
[2017-10-21] MEDS: FINASTERIDE 5 MG TAB PO SCH (09:00)
[2017-10-21] MEDS ORDERED: VANCOMYCIN 1,000 MG/NS 250 ML IV ONE ×2 (10:00)
[2017-10-21] MEDS: ARTIFICIAL TEARS OPTH SOLN 15 ML BTL EACH EYE SCH ×3 (10:13→16:41)
[2017-10-21] MEDS: FREE WATER G-TUBE SCH ×3 (10:15→20:10)
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
[2017-10-21] MEDS ORDERED: FUROSEMIDE 40 MG/4 ML VIAL IV PUSH ONE (10:30)
[2017-10-21] MEDS ORDERED: VANCOMYCIN INJ 850 MG in SODIUM CHLOR 0.9% 250 ML INJ 250 ML IV ONE (11:00)
[2017-10-21] MEDS: SODIUM CHLORIDE 0.9% FLUSH 10 ML FLUSH IV FLUSH SCH ×2 (11:34→20:12)
--- NOTE | 2017-10-21 18:16 | HHI.IDPN ---
Subjective Subjective Remarks On CPAP afebrile Urine clx with bowling S Proteus Antibiotics azithro vancomycin zosyn Allergies: Coded Allergies: No Known Allergies (Unverified , 10/12/17) Objective . Vital Signs Date Time Temp Pulse Resp B/P (MAP) Pulse Ox O2 Delivery O2 Flow Rate FiO2 10/21/17 18:00 35 10/21/17 16:00 78 10/21/17 16:00 35 10/21/17 16:00 99.5 78 15 125/57 (79) 100 10/21/17 15:54 98 35 10/21/17 14:00 91 10/21/17 12:00 84 10/21/17 12:00 35 10/21/17 12:00 99.5 84 12 133/60 (84) 100 10/21/17 11:49 40 10/21/17 11:39 100 35 10/21/17 10:26 100 35 10/21/17 10:00 68 10/21/17 08:26 99 35 10/21/17 08:00 61 10/21/17 08:00 98.4 61 16 100 10/21/17 08:00 35 10/21/17 04:02 100 35 10/21/17 04:00 35 10/21/17 04:00 75 10/21/17 04:00 98.9 75 17 125/63 (83) 98 10/21/17 02:00 73 10/21/17 01:07 99 35 10/21/17 00:00 35 10/21/17 00:00 98.8 72 17 129/58 (81) 100 10/20/17 22:15 98 35 10/20/17 20:00 98.9 80 17 143/63 (89) 100 10/20/17 20:00 35 10/20/17 19:17 100 35 . Laboratory Tests Test 10/20/17 19:50 10/21/17 04:35 White Blood Count 9.6 TH/MM3 7.3 TH/MM3 Red Blood Count 3.53 MIL/MM3 3.43 MIL/MM3 Hemoglobin 11.1 GM/DL 10.9 GM/DL Hematocrit 32.6 % 32.1 % Mean Corpuscular Volume 92.3 FL 93.7 FL Mean Corpuscular Hemoglobin 31.4 PG 31.7 PG Mean Corpuscular Hemoglobin Concent 34.0 % 33.8 % Red Cell Distribution Width 12.7 % 13.0 % Platelet Count 190 TH/MM3 184 TH/MM3 Mean Platelet Volume 8.0 FL 7.8 FL Neutrophils (%) (Auto) 78.4 % Lymphocytes (%) (Auto) 9.7 % Monocytes (%) (Auto) 8.9 % Eosinophils (%) (Auto) 2.5 % Basophils (%) (Auto) 0.5 % Neutrophils # (Auto) 5.7 TH/MM3 Lymphocytes # (Auto) 0.7 TH/MM3 Monocytes # (Auto) 0.7 TH/MM3 Eosinophils # (Auto) 0.2 TH/MM3 Basophils # (Auto) 0.0 TH/MM3 CBC Comment DIFF FINAL Differential Comment Laboratory Tests Test 10/20/17 00:43 10/20/17 19:50 10/21/17 04:35 Total Creatine Kinase 286 U/L Free Triiodothyronine (T3) pg/dL 1.40 PG/ML Blood Urea Nitrogen 13 MG/DL 13 MG/DL Creatinine 1.04 MG/DL 0.84 MG/DL Random Glucose 111 MG/DL 131 MG/DL Calcium Level 8.2 MG/DL 7.5 MG/DL Phosphorus Level 1.7 MG/DL 2.3 MG/DL Magnesium Level 2.2 MG/DL 2.4 MG/DL Sodium Level 148 MEQ/L 148 MEQ/L Potassium Level 4.0 MEQ/L 3.6 MEQ/L Chloride Level 115 MEQ/L 115 MEQ/L Carbon Dioxide Level 27.9 MEQ/L 26.2 MEQ/L Anion Gap 5 MEQ/L 7 MEQ/L Estimat Glomerular Filtration Rate 70 ML/MIN 89 ML/MIN Total Protein 6.2 GM/DL Albumin 2.5 GM/DL Alkaline Phosphatase 69 U/L Aspartate Amino Transf (AST/SGOT) 26 U/L Alanine Aminotransferase (ALT/SGPT) 30 U/L Total Bilirubin 0.2 MG/DL Imaging Last Impressions Head CT 10/20/17 0000 Signed Impressions: Service Date/Time: Friday, October 20, 2017 01:37 - CONCLUSION: No acute intracranial abnormality. Chronic white matter changes. Dinesh Bal MD Brain MRI 10/20/17 0000 Signed Impressions: Service Date/Time: Friday, October 20, 2017 16:35 - CONCLUSION: 1. No acute pathology. 2. Bilateral cortical atrophy and chronic white matter changes. Nino Field MD Abdomen/Pelvis CT 10/20/17 0000 Signed Impressions: Service Date/Time: Friday, October 20, 2017 01:41 - CONCLUSION: 1. No abscess, high-grade inflammatory changes or other clear etiology in the abdomen or pelvis for reported sepsis. 2. Right base consolidation. 3. 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 4. Tiny nonobstructing stones of the right kidney. 5. Aleman catheter and nasogastric tube present. 1. Dinesh Bal MD Chest X-Ray 10/19/17 0600 Signed Impressions: Service Date/Time: Thursday, October 19, 2017 04:35 - CONCLUSION: No infiltrates seen. Endotracheal tube tip close to the jay. Dinesh Bal MD Physical Exam CONSTITUTIONAL/GENERAL: This is a thin elderly patient, in no apparent distress. TUBES/LINES/DRAINS: SKIN: No jaundice, rashes, or lesions. Skin temperature appropriate. Not diaphoretic. CARDIOVASCULAR: Regular rate and rhythm without murmurs, gallops, or rubs. No JVD. Peripheral pulses symmetric. RESPIRATORY/CHEST: Symmetric, unlabored respirations. Clear to auscultation. Breath sounds equal bilaterally. No wheezes, rales, or rhonchi. GASTROINTESTINAL: Abdomen soft, non-tender, nondistended. No hepato-splenomegaly , or palpable masses. No guarding. Bowel sounds present. GENITOURINARY: Without palpable bladder distension. Aleman catheter in place with clear yellow urine MUSCULOSKELETAL: Extremities without clubbing, cyanosis, or edema. No joint tenderness or effusion noted. No calf tenderness. No mottling or clubbing. NEUROLOGICAL: arousable withh stimulation PSYCHIATRIC: not agitated Assessment & Plan Remarks Assessment and Plan PNA, RLL Resp failure - tolearating weaning UTI, bowling S Proteus sepsis (fever, hypotenstion on presentaiton) tonya eisenberg start CTX cont azithro x 5 days total Dorinda Dave MD Oct 21, 2017 18:16
[2017-10-21] MEDS ORDERED: cefTRIAXone INJ 1,000 MG in SODIUM CHLORIDE 0.9% INJ 100 ML IV SCH (20:00)
[2017-10-21] MEDS: DONEPEZIL HCL 5 MG TAB PO SCH (20:09)
[2017-10-21] MEDS: AZITHROMYCIN INJ 500 MG in SODIUM CHLOR 0.9% 250 ML INJ 250 ML IV SCH (20:10)
[2017-10-21] MEDS: TAMSULOSIN HCL 0.4 MG CAP PO SCH (20:13)
[2017-10-21] MEDS: cefTRIAXone INJ 1,000 MG in SODIUM CHLORIDE 0.9% INJ 100 ML IV SCH (21:00)
[2017-10-22] VITALS (14 sets, daily range): BP systolic 109–142; BP diastolic 55–63; PULSE 60–82; RESP 11–19; TEMP 98.2–99; O2SAT 91–100
[2017-10-22] MEDS: CHLORHEXIDINE GLUCONATE 2 % 1 PACK (2 CLOTHS) TOP SCH (04:00)
[2017-10-22] MEDS: INSULIN NovoLIN REGULAR SUPPLEMENTAL SCALE SQ SCH ×6 (04:00→19:47)
[2017-10-22] MEDS: RESP: ALBUTEROL 2.5 MG/IPRATROPIUM 0.5 MG NEB (SCH) INH ×3 (04:11→11:48)
[2017-10-22] MEDS: PROPOFOL 1000 MG/100 ML INJ 100 ML IV PRN (04:52)
[2017-10-22] MEDS: FREE WATER G-TUBE SCH (05:21)
[2017-10-22] MEDS: HEPARIN SODIUM - SQ 10,000 UNITS/ML VIAL SQ SCH ×3 (05:22→21:27)
[2017-10-22 05:24] LABS: BASOPHIL # 0.1 TH/MM3 (0-0.2); BASOPHIL % 0.9 % (0.0-2.0); EOSINOPHIL # 0.3 TH/MM3 (0-0.4); EOSINOPHIL % 5.4 % (0.0-4.0); HEMATOCRIT 32.2 % (39.0-51.0); HEMOGLOBIN 10.9 GM/DL (13.0-17.0); LYMPH % 17.5 % (9.0-44.0); LYMPHOCYTE # 1.1 TH/MM3 (1.0-4.8); MEAN CELL VOLUME 92.1 FL (80.0-100.0); MEAN CORPUSCULAR HEMOGLOBIN 31.3 PG (27.0-34.0); MEAN PLATELET VOLUME 7.8 FL (7.0-11.0); MONOCYTE # 0.6 TH/MM3 (0-0.9); NEUT % 66.2 % (16.0-70.0); PLATELET COUNT 218 TH/MM3 (150-450); RED BLOOD COUNT 3.49 MIL/MM3 (4.50-5.90); RED CELL DISTRIBUTION WIDTH 12.9 % (11.6-17.2); WHITE BLOOD COUNT 6.1 TH/MM3 (4.0-11.0)
[2017-10-22 05:40] LABS: BICARBONATE 26.3 MEQ/L (21.0-32.0); CALCIUM 7.9 MG/DL (8.5-10.1); CREATININE 0.81 MG/DL (0.60-1.30); MAGNESIUM 2.2 MG/DL (1.5-2.5)
[2017-10-22 05:41] LABS: PHOSPHORUS 2.5 MG/DL (2.5-4.9)
[2017-10-22 05:42] LABS: RANDOM VANCOMYCIN 5.1 COMMENT
[2017-10-22] MEDS: POTASSIUM CHLOR 20 MEQ PREMIX 100 ML IV PRN ×4 (06:34→13:05)
[2017-10-22] MEDS: CHLORHEXIDINE 0.12% (ORAL KIT) 15 ML CUP MT SCH ×2 (08:38→19:47)
[2017-10-22] MEDS: ASPIRIN 81 MG CHEW TAB CHEW SCH (08:41)
[2017-10-22] MEDS: clonazePAM 0.5 MG TAB PO SCH ×2 (08:42→21:00)
[2017-10-22] MEDS: ARTIFICIAL TEARS OPTH SOLN 15 ML BTL EACH EYE SCH ×3 (08:42→18:00)
[2017-10-22] MEDS: FAMOTIDINE 20 MG TAB NG SCH ×2 (08:42→21:00)
[2017-10-22] MEDS: DOCUSATE SODIUM 100 MG/10 ML UDC PO SCH ×2 (08:42→21:00)
[2017-10-22] MEDS: CHOLECALCIFEROL (VIT D3) 1000 UNIT TAB PO SCH (08:43)
[2017-10-22] MEDS: FINASTERIDE 5 MG TAB PO SCH (09:00)
[2017-10-22] MEDS: LACTULOSE SYRUP 20 GM/30 ML CUP PO SCH ×4 (09:00→21:00)
[2017-10-22] MEDS: SENNOSIDES SYRUP 8.8 MG/5 ML CUP PO SCH ×2 (09:08→21:00)
[2017-10-22] MEDS: SODIUM CHLORIDE 0.9% FLUSH 10 ML FLUSH IV FLUSH SCH ×2 (09:08→21:00)
[2017-10-22] MEDS: POLYETHYLENE GLYCOL 17 GM PKG PO SCH ×2 (09:08→21:00)
[2017-10-22] MEDS: PRAVASTATIN SOD 40 MG TAB PO SCH (09:08)
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
--- NOTE | 2017-10-22 11:30 | RADRPT ---
EXAM DATE/TIME: 10/22/2017 10:25 [place] COMPARISON: CHEST SINGLE AP, October 19, 2017, 4:35. INDICATIONS : Vendilation dependent respiratory failure MEDICAL HISTORY : dementia SURGICAL HISTORY : none known ENCOUNTER: Initial ACUITY: 4 - 6 days PAIN SCORE: Non-responsive. LOCATION: Bilateral chest FINDINGS: A single view of the chest demonstrates the lungs to be symmetrically aerated without evidence of mas s, infiltrate or effusion. Endotracheal tube and nasogastric tube are unchanged. The cardiomediastina l contours are unremarkable. Osseous structures are intact. CONCLUSION: 1. Lungs are clear. 2. Support lines and tubes are unchanged. Endotracheal tube could be retracted approximately 2 cm. Moris Rivera MD on October 22, 2017 at 11:27 Board Certified Radiologist. This report was verified electronically.
[2017-10-22] MEDS: RESP: ALBUTEROL 2.5 MG/IPRATROPIUM 0.5 MG NEB (SCH) NEB ×3 (16:46→23:10)
[2017-10-22] MEDS: DONEPEZIL HCL 5 MG TAB PO SCH (21:00)
[2017-10-22] MEDS: TAMSULOSIN HCL 0.4 MG CAP PO SCH (21:00)
[2017-10-22] MEDS: cefTRIAXone INJ 1,000 MG in SODIUM CHLORIDE 0.9% INJ 100 ML IV SCH (21:28)
[2017-10-22] MEDS: AZITHROMYCIN INJ 500 MG in SODIUM CHLOR 0.9% 250 ML INJ 250 ML IV SCH (21:28)
[2017-10-23] VITALS (11 sets, daily range): BP systolic 119–137; BP diastolic 51–66; PULSE 64–80; RESP 16–22; TEMP 97.6–99; O2SAT 96–100
[2017-10-23] MEDS: RESP: ALBUTEROL 2.5 MG/IPRATROPIUM 0.5 MG NEB (SCH) NEB ×6 (03:37→23:20)
[2017-10-23] MEDS: INSULIN NovoLIN REGULAR SUPPLEMENTAL SCALE SQ SCH ×6 (03:48→20:00)
[2017-10-23] MEDS: CHLORHEXIDINE GLUCONATE 2 % 1 PACK (2 CLOTHS) TOP SCH (03:49)
[2017-10-23] MEDS: HEPARIN SODIUM - SQ 10,000 UNITS/ML VIAL SQ SCH ×3 (05:53→22:42)
[2017-10-23] MEDS: CHLORHEXIDINE 0.12% (ORAL KIT) 15 ML CUP MT SCH ×2 (08:00→20:00)
[2017-10-23] MEDS: ASPIRIN 81 MG CHEW TAB CHEW SCH (08:01)
[2017-10-23] MEDS: FAMOTIDINE 20 MG TAB NG SCH ×2 (08:01→22:38)
[2017-10-23] MEDS: FINASTERIDE 5 MG TAB PO SCH (08:01)
[2017-10-23] MEDS: PRAVASTATIN SOD 40 MG TAB PO SCH (08:01)
[2017-10-23] MEDS: clonazePAM 0.5 MG TAB PO SCH ×2 (08:01→22:38)
[2017-10-23] MEDS: CHOLECALCIFEROL (VIT D3) 1000 UNIT TAB PO SCH (08:01)
[2017-10-23] MEDS: SENNOSIDES SYRUP 8.8 MG/5 ML CUP PO SCH ×2 (08:02→22:38)
[2017-10-23] MEDS: LACTULOSE SYRUP 20 GM/30 ML CUP PO SCH ×4 (08:02→22:38)
[2017-10-23] MEDS: DOCUSATE SODIUM 100 MG/10 ML UDC PO SCH ×2 (08:02→22:41)
[2017-10-23] MEDS: POLYETHYLENE GLYCOL 17 GM PKG PO SCH ×2 (08:02→22:42)
[2017-10-23] MEDS: SODIUM CHLORIDE 0.9% FLUSH 10 ML FLUSH IV FLUSH SCH ×2 (08:03→22:39)
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
[2017-10-23] MEDS: ARTIFICIAL TEARS OPTH SOLN 15 ML BTL EACH EYE SCH ×3 (08:56→18:00)
--- NOTE | 2017-10-23 12:26 | HHI.IDPN ---
Subjective Subjective Remarks extubated, doing well afebrile Antibiotics azithro CFTX Allergies: Coded Allergies: No Known Allergies (Unverified , 10/12/17) Objective . Vital Signs Date Time Temp Pulse Resp B/P (MAP) Pulse Ox O2 Delivery O2 Flow Rate FiO2 10/23/17 10:00 65 10/23/17 08:00 75 10/23/17 08:00 98.6 75 16 119/51 (73) 96 10/23/17 07:45 98 10/23/17 04:00 98.5 64 19 137/60 (85) 100 10/23/17 00:00 98.7 76 18 128/56 (80) 100 10/22/17 20:00 98.9 73 19 110/55 (73) 96 10/22/17 19:40 96 21 10/22/17 18:00 71 10/22/17 16:00 76 16 142/63 (89) 10/22/17 16:00 76 10/22/17 14:00 80 10/22/17 13:57 Nasal Cannula 4 . Laboratory Tests Test 10/22/17 04:40 White Blood Count 6.1 TH/MM3 Red Blood Count 3.49 MIL/MM3 Hemoglobin 10.9 GM/DL Hematocrit 32.2 % Mean Corpuscular Volume 92.1 FL Mean Corpuscular Hemoglobin 31.3 PG Mean Corpuscular Hemoglobin Concent 34.0 % Red Cell Distribution Width 12.9 % Platelet Count 218 TH/MM3 Mean Platelet Volume 7.8 FL Neutrophils (%) (Auto) 66.2 % Lymphocytes (%) (Auto) 17.5 % Monocytes (%) (Auto) 10.0 % Eosinophils (%) (Auto) 5.4 % Basophils (%) (Auto) 0.9 % Neutrophils # (Auto) 4.0 TH/MM3 Lymphocytes # (Auto) 1.1 TH/MM3 Monocytes # (Auto) 0.6 TH/MM3 Eosinophils # (Auto) 0.3 TH/MM3 Basophils # (Auto) 0.1 TH/MM3 CBC Comment DIFF FINAL Differential Comment Laboratory Tests Test 10/22/17 04:40 10/22/17 18:40 10/23/17 03:46 Blood Urea Nitrogen 14 MG/DL Creatinine 0.81 MG/DL Random Glucose 114 MG/DL Calcium Level 7.9 MG/DL Phosphorus Level 2.5 MG/DL Magnesium Level 2.2 MG/DL Sodium Level 147 MEQ/L Potassium Level 3.1 MEQ/L 5.7 MEQ/L 4.2 MEQ/L Chloride Level 113 MEQ/L Carbon Dioxide Level 26.3 MEQ/L Anion Gap 8 MEQ/L Estimat Glomerular Filtration Rate 93 ML/MIN Imaging Last Impressions Chest X-Ray 10/22/17 0000 Signed Impressions: Service Date/Time: Sunday, October 22, 2017 10:25 - CONCLUSION: 1. Lungs are clear. 2. Support lines and tubes are unchanged. Endotracheal tube could be retracted approximately 2 cm. Moris Rivera MD Head CT 10/20/17 0000 Signed Impressions: Service Date/Time: Friday, October 20, 2017 01:37 - CONCLUSION: No acute intracranial abnormality. Chronic white matter changes. Dinesh Bal MD Brain MRI 10/20/17 0000 Signed Impressions: Service Date/Time: Friday, October 20, 2017 16:35 - CONCLUSION: 1. No acute pathology. 2. Bilateral cortical atrophy and chronic white matter changes. Nino Field MD Abdomen/Pelvis CT 10/20/17 0000 Signed Impressions: Service Date/Time: Friday, October 20, 2017 01:41 - CONCLUSION: 1. No abscess, high-grade inflammatory changes or other clear etiology in the abdomen or pelvis for reported sepsis. 2. Right base consolidation. 3. 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 4. Tiny nonobstructing stones of the right kidney. 5. Aleman catheter and nasogastric tube present. 1. Dinesh Bal MD Physical Exam CONSTITUTIONAL/GENERAL: This is a thin elderly patient, in no apparent distress. TUBES/LINES/DRAINS: SKIN: No jaundice, rashes, or lesions. Skin temperature appropriate. Not diaphoretic. CARDIOVASCULAR: Regular rate and rhythm without murmurs, gallops, or rubs. No JVD. Peripheral pulses symmetric. RESPIRATORY/CHEST: Symmetric, unlabored respirations. Clear to auscultation. Breath sounds equal bilaterally. No wheezes, rales, or rhonchi. GASTROINTESTINAL: Abdomen soft, non-tender, nondistended. No hepato-splenomegaly , or palpable masses. No guarding. Bowel sounds present. GENITOURINARY: Without palpable bladder distension. Aleman catheter in place with clear yellow urine MUSCULOSKELETAL: Extremities without clubbing, cyanosis, or edema. No joint tenderness or effusion noted. No calf tenderness. No mottling or clubbing. NEUROLOGICAL: awake, but not much communicating PSYCHIATRIC: not agitated Assessment & Plan Remarks Assessment and Plan PNA, RLL Resp failure - tolearating weaning UTI, bowling S Proteus sepsis (fever, hypotenstion on presentaiton) cont CFTX x 5 more days cont azithro x 5 days total will s/o and fu PRN Dorinda Dave MD Oct 23, 2017 12:26
[2017-10-23 12:54] LABS: AUTOMATED NEUTROPHIL # 6.1 TH/MM3 (1.8-7.7); BASOPHIL % 0.6 % (0.0-2.0); EOSINOPHIL # 0.1 TH/MM3 (0-0.4); EOSINOPHIL % 1.8 % (0.0-4.0); HEMATOCRIT 33.8 % (39.0-51.0); HEMOGLOBIN 11.4 GM/DL (13.0-17.0); LYMPH % 11.5 % (9.0-44.0); LYMPHOCYTE # 0.9 TH/MM3 (1.0-4.8); MEAN CELL VOLUME 93.9 FL (80.0-100.0); MEAN CORPUSCULAR HEMOGLOBIN 31.7 PG (27.0-34.0); MEAN CORPUSCULAR HGB CONC 33.7 % (32.0-36.0); MEAN PLATELET VOLUME 7.6 FL (7.0-11.0); MONO % 7.1 % (0.0-8.0); MONOCYTE # 0.5 TH/MM3 (0-0.9); PLATELET COUNT 254 TH/MM3 (150-450); RED CELL DISTRIBUTION WIDTH 12.9 % (11.6-17.2); WHITE BLOOD COUNT 7.7 TH/MM3 (4.0-11.0)
[2017-10-23 13:14] LABS: BICARBONATE 26.9 MEQ/L (21.0-32.0); CALCIUM 8.8 MG/DL (8.5-10.1); CREATININE 0.72 MG/DL (0.60-1.30); MAGNESIUM 2.4 MG/DL (1.5-2.5); PHOSPHORUS 3.1 MG/DL (2.5-4.9)
[2017-10-23] MEDS: DONEPEZIL HCL 5 MG TAB PO SCH (21:00)
[2017-10-23] MEDS: cefTRIAXone INJ 1,000 MG in SODIUM CHLORIDE 0.9% INJ 100 ML IV SCH (22:39)
[2017-10-23] MEDS: TAMSULOSIN HCL 0.4 MG CAP PO SCH (22:42)
[2017-10-24] VITALS (14 sets, daily range): BP systolic 116–150; BP diastolic 58–73; PULSE 57–83; RESP 16–22; TEMP 97.4–98.3; O2SAT 94–100
[2017-10-24] MEDS: RESP: ALBUTEROL 2.5 MG/IPRATROPIUM 0.5 MG NEB (SCH) NEB ×6 (03:05→23:40)
[2017-10-24] MEDS: INSULIN NovoLIN REGULAR SUPPLEMENTAL SCALE SQ SCH ×6 (04:00→20:00)
[2017-10-24] MEDS: CHLORHEXIDINE GLUCONATE 2 % 1 PACK (2 CLOTHS) TOP SCH (04:00)
[2017-10-24] MEDS ORDERED: DEXTROSE 50% IN WATER 50 ML SYRINGE ONE (04:22)
[2017-10-24] MEDS: HEPARIN SODIUM - SQ 10,000 UNITS/ML VIAL SQ SCH ×3 (06:00→22:00)
[2017-10-24] MEDS: FAMOTIDINE 20 MG TAB NG SCH ×2 (09:10→21:00)
[2017-10-24] MEDS: PRAVASTATIN SOD 40 MG TAB PO SCH (09:10)
[2017-10-24] MEDS: DOCUSATE SODIUM 100 MG/10 ML UDC PO SCH ×2 (09:11→21:00)
[2017-10-24] MEDS: ASPIRIN 81 MG CHEW TAB CHEW SCH (09:11)
[2017-10-24] MEDS: CHOLECALCIFEROL (VIT D3) 1000 UNIT TAB PO SCH (09:11)
[2017-10-24] MEDS: SODIUM CHLORIDE 0.9% FLUSH 10 ML FLUSH IV FLUSH SCH ×2 (09:11→23:49)
[2017-10-24] MEDS: ARTIFICIAL TEARS OPTH SOLN 15 ML BTL EACH EYE SCH ×3 (09:11→18:00)
[2017-10-24] MEDS: LACTULOSE SYRUP 20 GM/30 ML CUP PO SCH ×4 (09:11→21:00)
[2017-10-24] MEDS: FINASTERIDE 5 MG TAB PO SCH (09:11)
[2017-10-24] MEDS: clonazePAM 0.5 MG TAB PO SCH ×2 (09:11→21:00)
[2017-10-24] MEDS: POLYETHYLENE GLYCOL 17 GM PKG PO SCH ×2 (09:11→21:00)
[2017-10-24] MEDS: SENNOSIDES SYRUP 8.8 MG/5 ML CUP PO SCH ×2 (09:11→21:00)
[2017-10-24] MEDS: CHLORHEXIDINE 0.12% (ORAL KIT) 15 ML CUP MT SCH ×2 (09:12→20:00)
[2017-10-24] MEDS: DEXTROSE 50% IN WATER 50 ML VIAL(D50) IV PUSH PRN ×2 (11:56→23:50)
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
[2017-10-24] MEDS: TAMSULOSIN HCL 0.4 MG CAP PO SCH (21:00)
[2017-10-24] MEDS: DONEPEZIL HCL 5 MG TAB PO SCH (21:00)
[2017-10-24] MEDS: cefTRIAXone INJ 1,000 MG in SODIUM CHLORIDE 0.9% INJ 100 ML IV SCH (23:48)
[2017-10-25] VITALS (11 sets, daily range): BP systolic 110–137; BP diastolic 60–68; PULSE 66–94; RESP 12–23; TEMP 97.3–98.6; O2SAT 92–100
[2017-10-25] MEDS: RESP: ALBUTEROL 2.5 MG/IPRATROPIUM 0.5 MG NEB (SCH) NEB ×6 (02:44→23:40)
[2017-10-25] MEDS: CHLORHEXIDINE GLUCONATE 2 % 1 PACK (2 CLOTHS) TOP SCH (04:00)
[2017-10-25] MEDS: INSULIN NovoLIN REGULAR SUPPLEMENTAL SCALE SQ SCH ×6 (04:00→20:00)
[2017-10-25] MEDS: HEPARIN SODIUM - SQ 10,000 UNITS/ML VIAL SQ SCH ×3 (05:15→20:34)
[2017-10-25] MEDS: CHLORHEXIDINE 0.12% (ORAL KIT) 15 ML CUP MT SCH ×2 (08:00→20:00)
[2017-10-25] MEDS: FAMOTIDINE 20 MG TAB NG SCH ×2 (08:29→20:34)
[2017-10-25] MEDS: ASPIRIN 81 MG CHEW TAB CHEW SCH (08:29)
[2017-10-25] MEDS: DOCUSATE SODIUM 100 MG/10 ML UDC PO SCH ×2 (08:29→20:34)
[2017-10-25] MEDS: PRAVASTATIN SOD 40 MG TAB PO SCH (08:29)
[2017-10-25] MEDS: FINASTERIDE 5 MG TAB PO SCH (08:29)
[2017-10-25] MEDS: clonazePAM 0.5 MG TAB PO SCH ×2 (08:29→20:34)
[2017-10-25] MEDS: ARTIFICIAL TEARS OPTH SOLN 15 ML BTL EACH EYE SCH ×3 (08:30→18:53)
[2017-10-25] MEDS: SODIUM CHLORIDE 0.9% FLUSH 10 ML FLUSH IV FLUSH SCH ×2 (08:30→20:35)
[2017-10-25] MEDS: CHOLECALCIFEROL (VIT D3) 1000 UNIT TAB PO SCH (08:30)
[2017-10-25] MEDS: LACTULOSE SYRUP 20 GM/30 ML CUP PO SCH ×4 (09:00→20:34)
[2017-10-25] MEDS: SENNOSIDES SYRUP 8.8 MG/5 ML CUP PO SCH ×2 (09:00→20:34)
[2017-10-25] MEDS: POLYETHYLENE GLYCOL 17 GM PKG PO SCH ×2 (09:00→20:33)
--- NOTE | 2017-10-25 12:07 | HHI.PR ---
Subjective Remarks Follow-up aspiration pneumonia/encephalopathy 10/25/17-patient seen and examined, vitals stable and afebrile. Resting comfortably. Able to say his name. Decreased appetite. Case discussed with ASHLY Cooney Objective Vitals Vital Signs Date Time Temp Pulse Resp B/P (MAP) Pulse Ox O2 Delivery O2 Flow Rate FiO2 10/25/17 10:00 75 10/25/17 08:00 94 10/25/17 08:00 97.3 83 19 129/68 (88) 94 10/25/17 04:00 69 10/25/17 04:00 98.2 69 16 136/63 (87) 100 10/25/17 02:00 66 10/25/17 00:00 71 10/25/17 00:00 97.7 71 23 137/63 (87) 10/24/17 22:00 67 10/24/17 20:00 97.6 81 22 150/70 (96) 99 10/24/17 20:00 81 10/24/17 19:24 94 Non-Rebreather 15.00 100 10/24/17 18:00 74 10/24/17 16:05 100 Room Air 10/24/17 16:00 97.5 81 19 118/60 (79) 100 10/24/17 16:00 81 10/24/17 14:00 72 I/O 10/24/17 10/24/17 10/24/17 10/25/17 10/25/17 10/25/17 07:00 15:00 23:00 07:00 15:00 23:00 Intake Total 160 ml 600 ml 100 ml Output Total 950 ml Balance -790 ml 600 ml 100 ml Intake Oral 60 ml 350 ml IV Total 100 ml 250 ml 100 ml Output Urine Total 950 ml # Voids 2 2 # Bowel Movements 0 0 Result Diagram: 10/23/17 1240 10/23/17 1240 Imaging Last Impressions Chest X-Ray 10/22/17 0000 Signed Impressions: Service Date/Time: Sunday, October 22, 2017 10:25 - CONCLUSION: 1. Lungs are clear. 2. Support lines and tubes are unchanged. Endotracheal tube could be retracted approximately 2 cm. Moris Rivera MD Head CT 10/20/17 0000 Signed Impressions: Service Date/Time: Friday, October 20, 2017 01:37 - CONCLUSION: No acute intracranial abnormality. Chronic white matter changes. Dinesh Bal MD Brain MRI 10/20/17 0000 Signed Impressions: Service Date/Time: Friday, October 20, 2017 16:35 - CONCLUSION: 1. No acute pathology. 2. Bilateral cortical atrophy and chronic white matter changes. Nino Field MD Abdomen/Pelvis CT 10/20/17 0000 Signed Impressions: Service Date/Time: Friday, October 20, 2017 01:41 - CONCLUSION: 1. No abscess, high-grade inflammatory changes or other clear etiology in the abdomen or pelvis for reported sepsis. 2. Right base consolidation. 3. 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 4. Tiny nonobstructing stones of the right kidney. 5. Aleman catheter and nasogastric tube present. 1. Dinesh Bal MD Objective Remarks GENERAL: NAD SKIN: Warm and dry. HEAD: Normocephalic. EYES: No scleral icterus. No injection or drainage. NECK: Supple, trachea midline. No JVD or lymphadenopathy. CARDIOVASCULAR: Regular rate and rhythm without murmurs, gallops, or rubs. RESPIRATORY: Breath sounds equal bilaterally. No accessory muscle use. GASTROINTESTINAL: Abdomen soft, non-tender, nondistended. MUSCULOSKELETAL: No cyanosis, or edema. BACK: Nontender without obvious deformity. No CVA tenderness. A/P Problem List: (1) Aspiration pneumonia ICD Code: J69.0 - Pneumonitis due to inhalation of food and vomit (2) Dementia with behavioral disturbance ICD Code: F03.91 - Unspecified dementia with behavioral disturbance Status: Acute Assessment and Plan 77 year-old man with Dementia Acute encephalopathy Monitor neuro status Continue Donepezil [address] brain revealed no acute intracranial findings. 10/20 MRI brain: No acute pathology Holding clonazepam 0.5 mg twice a day/home medication with altered mental status Acute respiratory failure-resolved Hyperlipidemia Monitor HR and BP keep MAP>65mmHg Continue aspirin 81 mg daily pravastatin 40 mg daily Constipation Gastroesophageal reflux disease Famotidine for GI prophylaxis. On omeprazole 20 mg daily at home Bowel regimen with senna with docusate sodium/senna 100 mg twice a day, senna 8.6 mg twice a day, ethylene glycol 17 g twice a day and lactulose 30 cc 4 times a day. BPH tamsulosin 0.4 mg by mouth daily/home medication and finasteride 5 mill grams by mouth daily Aspiration pneumonia Urinary tract infection/Proteus Currently on Rocephin until 10/27/17 per ID Completed azithromycin Treatment to monitor culture report Normocytic anemia Monitor CBC daily. Elevated TSH T4 normal at 1.14. T3 low at 1.4. Recheck 4-6 weeks.Likely Euthyroid sick syndrome OA Continue cholecalciferol 1000 units daily PT evaluate and treat PROPH: Heparin subcu for DVT prophylaxis. Famotidine for stress ulcer prophylaxis. Transfer to [facility] Problem Qualifiers (1) Dementia with behavioral disturbance: Qualified Codes: F03.91 - Unspecified dementia with behavioral disturbance Moris Dawn MD Oct 25, 2017 12:07
[2017-10-25] MEDS: TAMSULOSIN HCL 0.4 MG CAP PO SCH (20:34)
[2017-10-25] MEDS: DONEPEZIL HCL 5 MG TAB PO SCH (20:34)
[2017-10-25] MEDS: cefTRIAXone INJ 1,000 MG in SODIUM CHLORIDE 0.9% INJ 100 ML IV SCH (20:35)
[2017-10-26] VITALS (10 sets, daily range): BP systolic 101–146; BP diastolic 56–83; PULSE 70–93; RESP 14–18; TEMP 96.8–98.3; O2SAT 93–100
[2017-10-26] MEDS: INSULIN NovoLIN REGULAR SUPPLEMENTAL SCALE SQ SCH ×6 (04:00→19:28)
[2017-10-26] MEDS: CHLORHEXIDINE GLUCONATE 2 % 1 PACK (2 CLOTHS) TOP SCH (04:00)
[2017-10-26] MEDS: HEPARIN SODIUM - SQ 10,000 UNITS/ML VIAL SQ SCH ×3 (06:32→22:18)
[2017-10-26] MEDS: CHLORHEXIDINE 0.12% (ORAL KIT) 15 ML CUP MT SCH ×2 (07:35→19:28)
[2017-10-26] MEDS: RESP: ALBUTEROL 2.5 MG/IPRATROPIUM 0.5 MG NEB (SCH) NEB ×3 (08:35→15:48)
[2017-10-26 08:47] LABS: AUTOMATED NEUTROPHIL # 8.7 TH/MM3 (1.8-7.7); BASOPHIL % 0.4 % (0.0-2.0); EOSINOPHIL # 0.2 TH/MM3 (0-0.4); EOSINOPHIL % 1.6 % (0.0-4.0); HEMATOCRIT 38.1 % (39.0-51.0); HEMOGLOBIN 12.7 GM/DL (13.0-17.0); LYMPH % 9.4 % (9.0-44.0); MEAN CELL VOLUME 93.8 FL (80.0-100.0); MEAN CORPUSCULAR HEMOGLOBIN 31.2 PG (27.0-34.0); MEAN CORPUSCULAR HGB CONC 33.2 % (32.0-36.0); MONO % 5.9 % (0.0-8.0); MONOCYTE # 0.6 TH/MM3 (0-0.9); NEUT % 82.7 % (16.0-70.0); PLATELET COUNT 324 TH/MM3 (150-450); RED BLOOD COUNT 4.06 MIL/MM3 (4.50-5.90); RED CELL DISTRIBUTION WIDTH 12.7 % (11.6-17.2); WHITE BLOOD COUNT 10.5 TH/MM3 (4.0-11.0)
[2017-10-26] MEDS: SENNOSIDES SYRUP 8.8 MG/5 ML CUP PO SCH ×2 (09:00→22:17)
[2017-10-26] MEDS: LACTULOSE SYRUP 20 GM/30 ML CUP PO SCH ×4 (09:00→22:16)
[2017-10-26 09:05] LABS: BICARBONATE 26.9 MEQ/L (21.0-32.0); CALCIUM 8.4 MG/DL (8.5-10.1); CREATININE 0.88 MG/DL (0.60-1.30)
[2017-10-26] MEDS: ASPIRIN 81 MG CHEW TAB CHEW SCH (09:09)
[2017-10-26] MEDS: clonazePAM 0.5 MG TAB PO SCH ×2 (09:10→22:30)
[2017-10-26] MEDS: DOCUSATE SODIUM 100 MG/10 ML UDC PO SCH ×2 (09:10→22:16)
[2017-10-26] MEDS: FAMOTIDINE 20 MG TAB NG SCH ×2 (09:10→22:16)
[2017-10-26] MEDS: SODIUM CHLORIDE 0.9% FLUSH 10 ML FLUSH IV FLUSH SCH ×2 (09:10→21:00)
[2017-10-26] MEDS: ARTIFICIAL TEARS OPTH SOLN 15 ML BTL EACH EYE SCH ×3 (09:10→17:19)
[2017-10-26] MEDS: FINASTERIDE 5 MG TAB PO SCH (09:11)
[2017-10-26] MEDS: POLYETHYLENE GLYCOL 17 GM PKG PO SCH ×2 (09:11→22:17)
[2017-10-26] MEDS: CHOLECALCIFEROL (VIT D3) 1000 UNIT TAB PO SCH (09:11)
[2017-10-26] MEDS: PRAVASTATIN SOD 40 MG TAB PO SCH (09:11)
--- NOTE | 2017-10-26 16:42 | HHI.PR ---
Subjective Remarks Follow-up for pneumonia, dementia. Patient is resting in bed. Difficult to communicate due to dementia and also language barrier. No fever or chills. Objective Vitals Vital Signs Date Time Temp Pulse Resp B/P (MAP) Pulse Ox O2 Delivery O2 Flow Rate FiO2 10/26/17 13:21 Room Air 10/26/17 12:00 97.7 93 16 121/83 (96) 100 10/26/17 12:00 86 10/26/17 09:30 Room Air 10/26/17 08:39 100 10/26/17 08:00 97.6 87 16 125/65 (85) 100 10/26/17 08:00 81 10/26/17 05:29 96.9 83 14 122/65 (84) 96 10/26/17 03:58 89 10/26/17 02:13 96.8 74 14 118/56 (76) 93 10/26/17 00:00 77 10/25/17 23:42 98 10/25/17 22:14 97.8 78 12 110/60 (77) 92 10/25/17 20:00 78 I/O 10/25/17 10/25/17 10/25/17 10/26/17 10/26/17 10/26/17 07:00 15:00 23:00 07:00 15:00 23:00 Intake Total 100 ml 250 ml Output Total 300 ml Balance 100 ml 250 ml -300 ml Intake Oral 250 ml IV Total 100 ml Output Urine Total 300 ml # Voids 2 1 # Bowel Movements 0 1 Result Diagram: 10/26/17 0850 10/26/17 0850 Imaging Last Impressions Chest X-Ray 10/22/17 0000 Signed Impressions: Service Date/Time: Sunday, October 22, 2017 10:25 - CONCLUSION: 1. Lungs are clear. 2. Support lines and tubes are unchanged. Endotracheal tube could be retracted approximately 2 cm. Moris Rivera MD Head CT 10/20/17 0000 Signed Impressions: Service Date/Time: Friday, October 20, 2017 01:37 - CONCLUSION: No acute intracranial abnormality. Chronic white matter changes. Dinesh Bal MD Brain MRI 10/20/17 0000 Signed Impressions: Service Date/Time: Friday, October 20, 2017 16:35 - CONCLUSION: 1. No acute pathology. 2. Bilateral cortical atrophy and chronic white matter changes. Nino Field MD Abdomen/Pelvis CT 10/20/17 0000 Signed Impressions: Service Date/Time: Friday, October 20, 2017 01:41 - CONCLUSION: 1. No abscess, high-grade inflammatory changes or other clear etiology in the abdomen or pelvis for reported sepsis. 2. Right base consolidation. 3. 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 4. Tiny nonobstructing stones of the right kidney. 5. Aleman catheter and nasogastric tube present. 1. Dinesh Bal MD Objective Remarks GENERAL: Alert, NAD. SKIN: Warm and dry. HEAD: Normocephalic. EYES: No scleral icterus. No injection or drainage. NECK: Supple, trachea midline. No JVD or lymphadenopathy. CARDIOVASCULAR: Regular rate and rhythm without murmurs, gallops, or rubs. RESPIRATORY: Breath sounds equal bilaterally. No accessory muscle use. GASTROINTESTINAL: Abdomen soft, non-tender, nondistended. MUSCULOSKELETAL: No cyanosis, or edema. BACK: Nontender without obvious deformity. No CVA tenderness. A/P Problem List: (1) Aspiration pneumonia ICD Code: J69.0 - Pneumonitis due to inhalation of food and vomit (2) Dementia with behavioral disturbance ICD Code: F03.91 - Unspecified dementia with behavioral disturbance Status: Acute Assessment and Plan 77 year-old man with Dementia Acute encephalopathy Monitor neuro status Continue Donepezil [address] brain revealed no acute intracranial findings. 10/20 MRI brain: No acute pathology Switch Clonazepam from scheduled to PRN. Hyperlipidemia pravastatin 40 mg daily Constipation Gastroesophageal reflux disease Famotidine for GI prophylaxis. On omeprazole 20 mg daily at home Bowel regimen in place. BPH tamsulosin 0.4 mg by mouth daily/home medication and finasteride 5 mill grams by mouth daily Aspiration pneumonia Urinary tract infection/Proteus Currently on Rocephin until 10/27/17 per ID Completed azithromycin Treatment to monitor culture report Elevated TSH T4 normal at 1.14. T3 low at 1.4. Recheck 4-6 weeks.Likely Euthyroid sick syndrome Full code. Heparin SQ. Problem Qualifiers (1) Dementia with behavioral disturbance: Qualified Codes: F03.91 - Unspecified dementia with behavioral disturbance Alethea Fagan DO Oct 26, 2017 16:42
[2017-10-26] MEDS: TAMSULOSIN HCL 0.4 MG CAP PO SCH (22:16)
[2017-10-26] MEDS: DONEPEZIL HCL 5 MG TAB PO SCH (22:16)
[2017-10-26] MEDS: cefTRIAXone INJ 1,000 MG in SODIUM CHLORIDE 0.9% INJ 100 ML IV SCH (22:31)
[2017-10-27] VITALS (7 sets, daily range): BP systolic 102–139; BP diastolic 50–68; PULSE 73–105; RESP 16–24; TEMP 97.1–100.9; O2SAT 94–99
[2017-10-27] MEDS: CHLORHEXIDINE GLUCONATE 2 % 1 PACK (2 CLOTHS) TOP SCH (04:00)
[2017-10-27] MEDS: INSULIN NovoLIN REGULAR SUPPLEMENTAL SCALE SQ SCH ×3 (04:00→08:00)
[2017-10-27] MEDS: HEPARIN SODIUM - SQ 10,000 UNITS/ML VIAL SQ SCH ×3 (05:21→21:24)
[2017-10-27] MEDS: CHLORHEXIDINE 0.12% (ORAL KIT) 15 ML CUP MT SCH ×2 (08:00→20:00)
[2017-10-27] MEDS: SODIUM CHLORIDE 0.9% FLUSH 10 ML FLUSH IV FLUSH SCH ×2 (08:21→21:24)
[2017-10-27] MEDS: ARTIFICIAL TEARS OPTH SOLN 15 ML BTL EACH EYE SCH ×3 (08:21→18:00)
[2017-10-27] MEDS: DOCUSATE SODIUM 100 MG/10 ML UDC PO SCH ×2 (08:21→21:22)
[2017-10-27] MEDS: ASPIRIN 81 MG CHEW TAB CHEW SCH (08:21)
[2017-10-27] MEDS: FAMOTIDINE 20 MG TAB NG SCH ×2 (08:21→21:24)
[2017-10-27] MEDS: PRAVASTATIN SOD 40 MG TAB PO SCH (08:22)
[2017-10-27] MEDS: clonazePAM 0.5 MG TAB PO SCH (08:22)
[2017-10-27] MEDS: SENNOSIDES SYRUP 8.8 MG/5 ML CUP PO SCH ×2 (08:22→21:22)
[2017-10-27] MEDS: LACTULOSE SYRUP 20 GM/30 ML CUP PO SCH ×4 (08:22→21:22)
[2017-10-27] MEDS: FINASTERIDE 5 MG TAB PO SCH (08:22)
[2017-10-27] MEDS: POLYETHYLENE GLYCOL 17 GM PKG PO SCH ×2 (08:22→21:24)
[2017-10-27] MEDS: CHOLECALCIFEROL (VIT D3) 1000 UNIT TAB PO SCH (08:22)
[2017-10-27] MEDS ORDERED: clonazePAM 0.5 MG TAB PO PRN (14:30)
--- NOTE | 2017-10-27 14:33 | HHI.PR ---
Subjective Remarks Follow-up for pneumonia, dementia. Patient is somewhat drowsy. With upon verbal commands. Afebrile. Objective Vitals Vital Signs Date Time Temp Pulse Resp B/P (MAP) Pulse Ox O2 Delivery O2 Flow Rate FiO2 10/27/17 12:00 98.4 96 19 139/64 (89) 95 10/27/17 08:00 99.7 102 20 112/57 (75) 99 10/27/17 08:00 99.7 102 24 112/57 (75) 97 10/27/17 04:00 Room Air 10/27/17 04:00 77 10/27/17 04:00 97.5 82 16 122/55 (77) 97 10/27/17 00:23 73 10/27/17 00:00 Room Air 10/27/17 00:00 97.1 80 16 137/68 (91) 97 10/26/17 22:20 Room Air 10/26/17 20:24 74 10/26/17 20:00 98.3 80 16 112/57 (75) 97 10/26/17 16:43 Room Air 10/26/17 16:00 92 10/26/17 16:00 98.3 92 17 101/83 (89) 100 I/O 10/26/17 10/26/17 10/26/17 10/27/17 10/27/17 10/27/17 06:59 14:59 22:59 06:59 14:59 22:59 Intake Total 480 ml 100 ml Output Total 250 ml Balance 230 ml 100 ml Intake Oral 480 ml IV Total 100 ml Output Urine Total 250 ml # Voids 3 # Bowel Movements 1 Result Diagram: 10/26/17 0850 10/26/17 0850 Objective Remarks GENERAL: Alert, NAD. SKIN: Warm and dry. HEAD: Normocephalic. EYES: No scleral icterus. No injection or drainage. NECK: Supple, trachea midline. No JVD or lymphadenopathy. CARDIOVASCULAR: Regular rate and rhythm without murmurs, gallops, or rubs. RESPIRATORY: Breath sounds equal bilaterally. No accessory muscle use. GASTROINTESTINAL: Abdomen soft, non-tender, nondistended. MUSCULOSKELETAL: No cyanosis, or edema. BACK: Nontender without obvious deformity. No CVA tenderness. A/P Problem List: (1) Aspiration pneumonia ICD Code: J69.0 - Pneumonitis due to inhalation of food and vomit (2) Dementia with behavioral disturbance ICD Code: F03.91 - Unspecified dementia with behavioral disturbance Status: Acute Assessment and Plan 77 year-old man with Dementia Acute encephalopathy Monitor neuro status Continue Donepezil [address] brain revealed no acute intracranial findings. 10/20 MRI brain: No acute pathology Switched Clonazepam from scheduled to PRN. Will hold Klonopin today. Hyperlipidemia pravastatin 40 mg daily Constipation Gastroesophageal reflux disease Famotidine for GI prophylaxis. On omeprazole 20 mg daily at home Bowel regimen in place. BPH tamsulosin 0.4 mg by mouth daily/home medication and finasteride 5 mill grams by mouth daily Aspiration pneumonia Urinary tract infection/Proteus Currently on Rocephin until 10/27/17 per ID Completed azithromycin Treatment to monitor culture report Elevated TSH T4 normal at 1.14. T3 low at 1.4. Recheck 4-6 weeks.Likely Euthyroid sick syndrome Full code. Heparin SQ. Will place a palliative care consult due to advanced dementia. CM is working on senior care placement options. Problem Qualifiers (1) Dementia with behavioral disturbance: Qualified Codes: F03.91 - Unspecified dementia with behavioral disturbance Alethea Fagan DO Oct 27, 2017 14:33
[2017-10-27] MEDS: DONEPEZIL HCL 5 MG TAB PO SCH (21:00)
[2017-10-27] MEDS: TAMSULOSIN HCL 0.4 MG CAP PO SCH (21:22)
[2017-10-28] VITALS: BP 115/61; PULSE 97; RESP 18; TEMP 98; O2SAT 94
[2017-10-28] MEDS: CHLORHEXIDINE GLUCONATE 2 % 1 PACK (2 CLOTHS) TOP SCH (01:06)
[2017-10-28 04:13] VITALS: BP 145/68; PULSE 87; RESP 18; TEMP 98.5; O2SAT 93
[2017-10-28] MEDS: HEPARIN SODIUM - SQ 10,000 UNITS/ML VIAL SQ SCH ×3 (05:20→22:24)
[2017-10-28 08:09] VITALS: BP 137/65; PULSE 88; RESP 17; TEMP 99.2; O2SAT 98
[2017-10-28] MEDS: ARTIFICIAL TEARS OPTH SOLN 15 ML BTL EACH EYE SCH ×3 (09:01→17:40)
[2017-10-28] MEDS: SENNOSIDES SYRUP 8.8 MG/5 ML CUP PO SCH ×2 (09:02→22:23)
[2017-10-28] MEDS: DOCUSATE SODIUM 100 MG/10 ML UDC PO SCH ×2 (09:02→22:23)
[2017-10-28] MEDS: LACTULOSE SYRUP 20 GM/30 ML CUP PO SCH ×4 (09:02→22:23)
[2017-10-28] MEDS: POLYETHYLENE GLYCOL 17 GM PKG PO SCH ×2 (09:07→22:23)
[2017-10-28] MEDS: CHOLECALCIFEROL (VIT D3) 1000 UNIT TAB PO SCH (09:08)
[2017-10-28] MEDS: FINASTERIDE 5 MG TAB PO SCH (09:08)
[2017-10-28] MEDS: ASPIRIN 81 MG CHEW TAB CHEW SCH (09:08)
[2017-10-28] MEDS: PRAVASTATIN SOD 40 MG TAB PO SCH (09:08)
[2017-10-28] MEDS: FAMOTIDINE 20 MG TAB NG SCH ×2 (09:08→22:24)
[2017-10-28] MEDS: SODIUM CHLORIDE 0.9% FLUSH 10 ML FLUSH IV FLUSH SCH ×2 (09:08→22:24)
[2017-10-28] MEDS: CHLORHEXIDINE 0.12% (ORAL KIT) 15 ML CUP MT SCH ×2 (09:14→22:24)
[2017-10-28 12:09] VITALS: BP 147/70; PULSE 81; RESP 18; TEMP 97.7; O2SAT 95
--- NOTE | 2017-10-28 14:20 | HHI.PR ---
Subjective Remarks Follow-up for pneumonia, dementia. Patient is resting in bed. No acute concerns. He is not eating much. Objective Vitals Vital Signs Date Time Temp Pulse Resp B/P (MAP) Pulse Ox O2 Delivery O2 Flow Rate FiO2 10/28/17 12:09 97.7 81 18 147/70 (95) 95 10/28/17 08:09 99.2 88 17 137/65 (89) 98 10/28/17 08:00 Room Air 2.00 21 10/28/17 04:13 98.5 87 18 145/68 (93) 93 10/28/17 04:13 Room Air 10/28/17 00:00 Room Air 10/28/17 00:00 98.0 97 18 115/61 (79) 94 10/27/17 21:20 Room Air 10/27/17 20:00 99.3 96 18 102/50 (67) 94 10/27/17 18:30 Room Air 10/27/17 16:00 98.1 105 18 107/59 (75) 99 10/27/17 14:45 Room Air I/O 10/27/17 10/27/17 10/27/17 10/28/17 10/28/17 10/28/17 07:00 15:00 23:00 07:00 15:00 23:00 Intake Total 100 ml 600 ml 80 ml Output Total 50 ml Balance 100 ml 600 ml 30 ml Intake Oral 600 ml 80 ml IV Total 100 ml Output Urine Total 50 ml # Voids 3 2 1 # Bowel Movements 1 0 Result Diagram: 10/26/17 0850 10/26/17 0850 Objective Remarks GENERAL: Alert, NAD. SKIN: Warm and dry. HEAD: Normocephalic. EYES: No scleral icterus. No injection or drainage. NECK: Supple, trachea midline. No JVD or lymphadenopathy. CARDIOVASCULAR: Regular rate and rhythm without murmurs, gallops, or rubs. RESPIRATORY: Breath sounds equal bilaterally. No accessory muscle use. GASTROINTESTINAL: Abdomen soft, non-tender, nondistended. MUSCULOSKELETAL: No cyanosis, or edema. BACK: Nontender without obvious deformity. No CVA tenderness. A/P Problem List: (1) Aspiration pneumonia ICD Code: J69.0 - Pneumonitis due to inhalation of food and vomit (2) Dementia with behavioral disturbance ICD Code: F03.91 - Unspecified dementia with behavioral disturbance Status: Acute Assessment and Plan 77 year-old man with Dementia Acute encephalopathy Monitor neuro status Continue Donepezil [address] brain revealed no acute intracranial findings. 10/20 MRI brain: No acute pathology Hold clonazepam for now. Hyperlipidemia pravastatin 40 mg daily Constipation Gastroesophageal reflux disease Famotidine for GI prophylaxis. On omeprazole 20 mg daily at home Bowel regimen in place. BPH tamsulosin 0.4 mg by mouth daily/home medication and finasteride 5 mill grams by mouth daily Aspiration pneumonia Urinary tract infection/Proteus Currently on Rocephin until 10/27/17 per ID Completed azithromycin Treatment to monitor culture report Elevated TSH T4 normal at 1.14. T3 low at 1.4. Recheck 4-6 weeks.Likely Euthyroid sick syndrome Full code. Heparin SQ. Palliative care is going to evaluate this patient. CM is working on placement. Problem Qualifiers (1) Dementia with behavioral disturbance: Qualified Codes: F03.91 - Unspecified dementia with behavioral disturbance Alethea Fagan DO Oct 28, 2017 14:20
--- NOTE | 2017-10-28 15:36 | PD.CONS ---
Consult Service Palliative Care Consult Requested By Dr. Fagan. Primary Care Physician Unknown Reason for Consultation a. To assist with evaluation and management of symptoms including: Debility , poor oral intake. b. To assist medical decision maker(s) with: better understanding of current medical conditions; weighing benefits/burdens of medical treatment options; making medical treatment decisions. . HPI History of Present Illness Mr. Palm is a 77-year-old male with a medical history significant for advanced dementia. Patient presented to ED on 10/12/17 secondary to behavioral disturbances, altered mental status. Laboratory workup revealing WBC 8.6, Hgb 13.0, platelet count 179. Sodium 138, potassium 3.4, BUN/creatinine 16/0.91. Toxicology negative. Patient was cleared for psychiatric evaluation. Clinical course complicated on 10/18/17 secondary to septic shock. Patient with temperature 103, hypertensive, hypoxemic and minimally responsive requiring emergent intubation and mechanical ventilation. Patient was transferred to critical care for further management and monitoring. Infectious disease, Dr. Dave consulted on 10/18/17 secondary to pneumonia, fever. UA negative for nitrates, large leukocytes. Urine culture positive for Proteus Mirabilis. Chest x-ray revealing mild right base infiltrate. EEG 10/20/17 abnormal secondary to generalized slowing suggesting bilateral structural abnormalities or moderate to severe diffuse disturbance of cerebral function. Head CT 10/20 negative for acute process. However, revealed chronic white matter changes. Brain MRI 10/20 revealing bilateral cortical atrophy and chronic white matter changes but negative for acute process. 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 Patient was extubated on 10/22/17 and transferred to medical floor. Clinical course complicated by overall debility and poor oral intake. Nutrition is following, Ensure 3 times daily added. Patient currently on pured diet with thin liquids, speech therapy following. Palliative care consulted for further clarifications all goals of care given advanced dementia, pneumonia and poor oral intake. Patient seen in his room. He was sitting in recliner chair in no acute distress. Leaning towards the left, unable to hold his torso straight out. Patient is alert, was able to tell me his name. Visit conducted in [place] but this is patient's primary language. Patient intermittently following simple commands. Flat affect, intermittently tracking with eyes. Patient is afebrile , stable hemodynamically. Tolerating room air. Case reviewed with bedside RN. Patient with reported decreased oral intake, nutrition is following. Ensure 3 times daily. Telephone conversation with patient's Thao. In this first visit, reviewed the role of palliative care in advanced illness in regards to symptom management as well as support surrounding goals of care and advance care planning. receptive to this. Reviewed events leading to this hospitalization, clinical course and current medical management. Share concerns with patient's clinical condition to include advanced dementia, complicated by pneumonia and decreased oral intake. Patient cachectic and debilitated. Family electing aggressive management to include full code. Goal is to discharge home to long-term facility for an additional 6 weeks -respite time as patient's recently underwent surgery and is unable to care for patient at this time. reports that the plan is for patient to return home in aprox 6 weeks once she recuperates from her surgical intervention. Shared concerns of patient's advanced dementia, progressive decline, poor oral intake and profound physical deconditioning. is receptive to palliative care follow-ups, family meeting scheduled for tomorrow 10/29 at 10 AM. Case discussed with Dr. Fagan and bedside RN. . Function/Cognitive Trajectory Patient residing at home with is primary caregiver. Advanced dementia at baseline. Debility, requiring assistance with all ADLs besides feedings. . Review of Systems ROS Limitations: Clinical Condition, Altered Mental Status, Poor Historian Constitutional: COMPLAINS OF: Change in appetite, Generalized weakness, DENIES : Fever Endocrine: DENIES: Heat/cold intolerance Eyes: DENIES: Eye inflammation Ears, nose, mouth, throat: COMPLAINS OF: Nasal discharge, Running Nose, DENIES : Epistaxis Respiratory: DENIES: Cough, Wheezing, Shortness of breath Cardiovascular: DENIES: Dyspnea on Exertion, Lower Extremity Edema Gastrointestinal: COMPLAINS OF: Constipation, Difficulty Swallowing, Anorexia, DENIES: Black stools, Vomiting Genitourinary: DENIES: Hematuria Integumentary: DENIES: Pruritus Hematologic/Lymphatics: COMPLAINS OF: Bruising Immunologic/Allergic: DENIES: Eczema Neurologic: COMPLAINS OF: Abnormal gait, DENIES: Localized weakness, Seizures, Tremor Psychiatric: COMPLAINS OF: Anxiety, Confusion, Mood changes, Agitation Past Family Social History Coded Allergies: No Known Allergies (Unverified , 10/12/17) Past Medical History Dementia with behavioral disturbances Hyperlipidemia GERD Constipation BPH . Past Surgical History None. . Reported Medications Tamsulosin (Tamsulosin HCl) 0.4 Mg Cap 0.4 Mg PO HS Quetiapine (Quetiapine Fumarate) 25 Mg Tab 25 Mg PO HS Finasteride 5 Mg Tab 5 Mg DAILY Vitamin D3 (Cholecalciferol) 1,000 Unit Tab 1,000 Units PO DAILY Simvastatin 20 Mg Tab 20 Mg PO DAILY Donepezil 10 Mg Tab 10 Mg PO HS Omeprazole 20 Mg Tab 20 Mg PO DAILY Clonazepam 0.5 Mg Tab 0.5 Mg PO BID Aspirin 81 Mg Chew 81 Mg CHEW DAILY . Current Medications Medications (Trade) Dose Ordered Sig/Alan Route Start Time Stop Time Status Last Admin (NS Flush) 2 ml UNSCH PRN IV FLUSH 10/18/17 05:15 10/21/17 11:35 (NS Flush) 2 ml BID IV FLUSH 10/18/17 09:00 10/28/17 09:08 (Versed Inj) 2 mg Q1H PRN IV PUSH 10/18/17 05:15 (Tears Naturale Opth Soln) 1 drop TID EACH EYE 10/18/17 09:00 10/28/17 12:37 (Zofran Inj) 4 mg Q6H PRN IV PUSH 10/18/17 05:15 (Heparin Inj) 5,000 units Q8HR SQ 10/18/17 06:00 10/28/17 14:45 Miscellaneous Information 1 Q361D XX 10/18/17 05:15 (Chlorhexidine 2% Cloth) Taper DAILY@04 TOP 10/19/17 04:00 10/15/18 03:59 10/23/17 03:49 (Chlorhexidine 2% Cloth) 3 pack UNSCH PRN TOP 10/18/17 05:15 (Milk Of Magnesia Liq) 30 ml Q12H PRN PO 10/18/17 05:15 (Dulcolax Supp) 10 mg DAILY PRN RECTAL 10/18/17 05:15 (Lactulose Liq) 30 ml DAILY PRN PO 10/18/17 05:15 (Peridex 0.12% Liq) 15 ml BID@08,20 MT 10/18/17 08:00 10/28/17 09:14 (Aspirin Chew) 81 mg DAILY CHEW 10/18/17 09:00 10/28/17 09:08 (Vitamin D3) 1,000 units DAILY PO 10/18/17 09:00 10/28/17 09:08 (Aricept) 10 mg HS PO 10/18/17 21:00 10/27/17 21:00 (SEROquel) 25 mg HS PO 10/18/17 21:00 Future Hold 10/19/17 20:37 (Flomax) 0.4 mg HS PO 10/18/17 21:00 10/27/17 21:22 (Pravachol) 40 mg DAILY PO 10/18/17 09:00 10/28/17 09:08 (Proscar) 5 mg DAILY PO 10/18/17 09:00 10/28/17 09:08 (Tylenol 650 Mg/ 20 ml Liq) 650 mg Q6H PRN NG 10/20/17 14:45 (Albuterol Neb) 2.5 mg Q2HR NEB PRN NEB 10/20/17 14:45 (Pepcid) 20 mg BID NG 10/20/17 21:00 10/28/17 09:08 (Colace Liq) 100 mg Q12HR PO 10/20/17 21:00 10/28/17 09:02 (Senna Liq) 8.8 mg BID PO 10/20/17 21:00 10/28/17 09:02 (Miralax) 17 gm Q12HR PO 10/20/17 21:00 10/28/17 09:07 (Lactulose Liq) 30 ml QID PO 10/20/17 18:00 10/28/17 12:38 (KlonoPIN) 0.5 mg Q12HR PRN PO 10/27/17 14:30 Family History Unable to obtain secondary to patient's clinical condition, dementia. . Substance Use Tobacco: None. Alcohol: None. Prescription med abuse: None. Illicits: None. . Psychosocial History Patient residing with prior to 10/11/17. Admitted to [facility] on as was hospitalized. Patient is . . Spiritual/Cultural Factors No scientology affiliation. . Living Will: Completed, but not made available Health Care Surrogate: Completed, but not made available Health Care Surrogate(s): Patient's report that advanced directives have been completed. She reports being listed as healthcare surrogate decision maker. Pending copy. . Family/friends goals: Full code. Family electing aggressive management. . Physical Exam Vital Signs Date Time Temp Pulse Resp B/P (MAP) Pulse Ox O2 Delivery O2 Flow Rate FiO2 10/28/17 12:09 97.7 81 18 147/70 (95) 95 10/28/17 08:09 99.2 88 17 137/65 (89) 98 10/28/17 08:00 Room Air 2.00 21 10/28/17 04:13 98.5 87 18 145/68 (93) 93 10/28/17 04:13 Room Air 10/28/17 00:00 Room Air 10/28/17 00:00 98.0 97 18 115/61 (79) 94 10/27/17 21:20 Room Air 10/27/17 20:00 99.3 96 18 102/50 (67) 94 10/27/17 18:30 Room Air 10/27/17 16:00 98.1 105 18 107/59 (75) 99 Exam CONSTITUTIONAL/GENERAL: This is a cachectic, frail-looking elderly male in no acute distress. TUBES/LINES/DRAINS: PIV, Aleman catheter. SKIN: No jaundice, rashes, or lesions. Ecchymoses on upper extremities. No wounds seen anteriorly. Skin temperature appropriate. Not diaphoretic. HEAD: Atraumatic. Normocephalic. Bilateral temporal wasting. EYES: Pupils equal and round and reactive. Extraocular motions intact. No scleral icterus. No injection or drainage. mined. ENT: Hearing grossly normal. Nose without bleeding or purulent drainage. Moist oral mucosa. NECK: Trachea midline. Supple, nontender. CARDIOVASCULAR: Regular rate and rhythm without murmurs. Peripheral pulses symmetric. RESPIRATORY/CHEST: Symmetric, unlabored respirations. Clear to auscultation. Breath sounds equal bilaterally. GASTROINTESTINAL: Abdomen soft, non-tender, nondistended. No guarding. Bowel sounds present. GENITOURINARY: Without palpable bladder distension. Aleman catheter in place. MUSCULOSKELETAL: Extremities without clubbing, cyanosis, or edema. No mottling or clubbing. Muscle wasting to all 4 extremities. NEUROLOGICAL: Awake and alert to self. Baseline dementia. Intermittently following simple commands. Verbal, not always able to communicate needs secondary to dementia. Moves all extremities. PSYCHIATRIC: Flat affect. Calm. . Diagnostic Tests Laboratory Laboratory Tests Test 10/26/17 08:50 White Blood Count 10.5 TH/MM3 (4.0-11.0) Red Blood Count 4.06 MIL/MM3 (4.50-5.90) Hemoglobin 12.7 GM/DL (13.0-17.0) Hematocrit 38.1 % (39.0-51.0) Mean Corpuscular Volume 93.8 FL (80.0-100.0) Mean Corpuscular Hemoglobin 31.2 PG (27.0-34.0) Mean Corpuscular Hemoglobin Concent 33.2 % (32.0-36.0) Red Cell Distribution Width 12.7 % (11.6-17.2) Platelet Count 324 TH/MM3 (150-450) Mean Platelet Volume 7.0 FL (7.0-11.0) Neutrophils (%) (Auto) 82.7 % (16.0-70.0) Lymphocytes (%) (Auto) 9.4 % (9.0-44.0) Monocytes (%) (Auto) 5.9 % (0.0-8.0) Eosinophils (%) (Auto) 1.6 % (0.0-4.0) Basophils (%) (Auto) 0.4 % (0.0-2.0) Neutrophils # (Auto) 8.7 TH/MM3 (1.8-7.7) Lymphocytes # (Auto) 1.0 TH/MM3 (1.0-4.8) Monocytes # (Auto) 0.6 TH/MM3 (0-0.9) Eosinophils # (Auto) 0.2 TH/MM3 (0-0.4) Basophils # (Auto) 0.0 TH/MM3 (0-0.2) CBC Comment DIFF FINAL Differential Comment Blood Urea Nitrogen 16 MG/DL (7-18) Creatinine 0.88 MG/DL (0.60-1.30) Random Glucose 95 MG/DL (74-106) Calcium Level 8.4 MG/DL (8.5-10.1) Sodium Level 139 MEQ/L (136-145) Potassium Level 3.9 MEQ/L (3.5-5.1) Chloride Level 107 MEQ/L (98-107) Carbon Dioxide Level 26.9 MEQ/L (21.0-32.0) Anion Gap 5 MEQ/L (5-15) Estimat Glomerular Filtration Rate 84 ML/MIN (>89) Result Diagram: 10/26/17 0850 10/26/17 0850 Microbiology Microbiology Date/Time Source Procedure Growth Status 10/18/17 05:45 Blood Peripheral Aerobic Blood Culture - Final NO GROWTH IN 5 DAYS Complete 10/18/17 05:45 Blood Peripheral Anaerobic Blood Culture - Final NO GROWTH IN 5 DAYS Complete 10/18/17 08:00 Nasal Washing Influenza Types A,B Antigen (EZEQUIEL) - Final NEGATIVE FOR FLU A AND B ANTIGEN.... Complete 10/18/17 12:45 Urine Catheterized Urine Urine Culture - Final NO GROWTH IN 48 HOURS. Complete Imaging Last Impressions Chest X-Ray 10/22/17 0000 Signed Impressions: Service Date/Time: Sunday, October 22, 2017 10:25 - CONCLUSION: 1. Lungs are clear. 2. Support lines and tubes are unchanged. Endotracheal tube could be retracted approximately 2 cm. Moris Rivera MD Head CT 10/20/17 0000 Signed Impressions: Service Date/Time: Friday, October 20, 2017 01:37 - CONCLUSION: No acute intracranial abnormality. Chronic white matter changes. Dinesh Bal MD Brain MRI 10/20/17 0000 Signed Impressions: Service Date/Time: Friday, October 20, 2017 16:35 - CONCLUSION: 1. No acute pathology. 2. Bilateral cortical atrophy and chronic white matter changes. Nino Field MD Abdomen/Pelvis CT 10/20/17 0000 Signed Impressions: Service Date/Time: Friday, October 20, 2017 01:41 - CONCLUSION: 1. No abscess, high-grade inflammatory changes or other clear etiology in the abdomen or pelvis for reported sepsis. 2. Right base consolidation. 3. 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 4. Tiny nonobstructing stones of the right kidney. 5. Aleman catheter and nasogastric tube present. 1. Dinesh Bal MD Procedures * 10/12/17 -endotracheal intubation * 10/22/17 -medical extubation . Patient/Family Conference Present at Family Conference: Thao Palm . Family Conference Time (mins): 33 Family Conference Location: Telephone Issues Discussed: * Palliative care role, purpose, approach * Additional medical, psychosocial, and spiritual history * Patients general health, functional status, and cognitive changes in the months leading up to the current hospitalization * Patient/family understanding of the current medical problems * Patient/family understanding of prognosis * Patients goals of care as best understood from advance directives and/or conversations and/or values * Current medical treatment options and benefits/burdens of those options * Questions answered to the best of my ability * Palliative care contact information provided * Risks, benefits and limitations of CPR, intubation mechanical ventilation . Assessment and Plan Disease Oriented Problem List: (1) Aspiration pneumonia (2) UTI (urinary tract infection) (3) Dementia with behavioral disturbance (4) Cachexia (5) Physical deconditioning Symptom Scale: (1) Dysphagia 0-10 Scale: Unable to quantify (2) Decreased oral intake 0-10 Scale: Unable to quantify Pertinent Non-Medical Issues Psychosocial: Patient is . Dementia baseline, residing with prior to 10/11/17. Pending addl info. Spiritual: No scientology affiliation. Legal: Advance directives reported as completed. Pending copy. Ethical issues impacting care: Baseline dementia. Patient's acting as healthcare surrogate decision maker. . Important Contacts Thao Palm . . Prognosis Mr. Palm it is a 77-year-old male with a medical history significant for advanced dementia as long as multiple chronic comorbidities. Patient being treated for pneumonia. Extubated on 10/22/17 secondary to hypoxemia, septic shock. Clinical course complicated by pneumonia, poor oral intake. Patient is cachectic, debilitated. At very high risk for further complications, continued decline and . . Code Status: Full Code Plan * CODE STATUS: FULL code. * HEALTHCARE DECISION-MAKING: Patient unable to participate in medical decision making secondary to advanced dementia. Advanced directives reported as completed, Thao Palm presents herself as healthcare surrogate decision maker. Pending copies. * GOALS OF CARE: Family electing aggressive management to include full code. Goal is to discharge to long-term facility for an additional 6 weeks -respite time as patient's recently underwent surgery and is unable to care for patient at this time. reports that the plan is for patient to return home in aprox 6 weeks once she recuperates from her surgical interventions. Shared concerns of patient's advanced dementia, progressive decline, poor oral intake and profound physical deconditioning. is receptive to palliative care follow-ups, family meeting scheduled for tomorrow 10/29 at 10 AM. * SYMPTOMS: =dysphagia/poor oral intake: Speech therapy following. Patient currently on pured diet with thin liquids. Soliciting Freight Agent following, Ensure 3 times daily. Patient with decreased oral intake, eating between 0-50% of his meals. reports that this is new onset, eating well at home. = Debility: Exacerbated by acute illness, prolonged hospitalization. Patient is cachectic, appears debilitated. Having difficulties with holding his torso straight up. Not likely to improve given advanced dementia, acute illness and prolonged hospitalization. PT following. * Case discussed with Dr. Fagan bedside RN. * Palliative care contact information has been provided to patient's family. * Palliative care will continue to follow up for further clarifications of goals of care as patient's clinical course continues to evolve. . Time Spent Total Floor Time (mins): 63 (Total time to include reviewing summarization of available medical records, physical exam, goals of care conversation with patient's , case discussion with attending and bedside RN.) >50% Counseling/Coord of Care: Yes Thank you for the opportunity to participate in the care of Mr. Palm. Attestation To help prompt me to consider important information that might be impacting today's encounter and assessment, information from prior notes written by myself or my colleagues may have been "brought forward" into today's note. My signature on this note, however, is an attestation that I personally performed the exam, history, and/or decision-making noted today, and, unless otherwise indicated, the interactions with patient, family, and staff as well as the review of records all occurred today. I also attest that the listed assessment and stated plan reflect my best clinical judgment today based on the combination of historical information, prior notes, and today's exam/ interactions. When time spent is documented, it refers only to time spent today by the signer, or if indicated, combined time spent today by collaborating physician/nurse practitioner. Randi Royal Oct 28, 2017 15:36
[2017-10-28 16:09] VITALS: BP 154/74; PULSE 88; RESP 18; TEMP 97.7; O2SAT 98
[2017-10-28 20:00] VITALS: BP 122/57; PULSE 80; RESP 16; TEMP 97.8; O2SAT 97
[2017-10-28] MEDS: TAMSULOSIN HCL 0.4 MG CAP PO SCH (22:24)
[2017-10-28] MEDS: DONEPEZIL HCL 5 MG TAB PO SCH (22:24)
[2017-10-29] VITALS: BP 136/73; PULSE 83; RESP 16; TEMP 97.6; O2SAT 99
[2017-10-29] MEDS: CHLORHEXIDINE GLUCONATE 2 % 1 PACK (2 CLOTHS) TOP SCH (03:32)
[2017-10-29 03:58] VITALS: BP 141/76; PULSE 76; RESP 18; TEMP 98.3; O2SAT 97
[2017-10-29] MEDS: HEPARIN SODIUM - SQ 10,000 UNITS/ML VIAL SQ SCH ×3 (06:00→22:36)
[2017-10-29 08:00] VITALS: BP 136/63; PULSE 78; RESP 18; TEMP 98.2; O2SAT 97
[2017-10-29] MEDS: CHLORHEXIDINE 0.12% (ORAL KIT) 15 ML CUP MT SCH ×2 (08:00→20:00)
[2017-10-29] MEDS: SODIUM CHLORIDE 0.9% FLUSH 10 ML FLUSH IV FLUSH SCH ×2 (08:42→21:00)
[2017-10-29] MEDS: POLYETHYLENE GLYCOL 17 GM PKG PO SCH ×2 (08:44→21:00)
[2017-10-29] MEDS: FAMOTIDINE 20 MG TAB NG SCH ×2 (08:44→22:35)
[2017-10-29] MEDS: LACTULOSE SYRUP 20 GM/30 ML CUP PO SCH ×4 (08:44→21:00)
[2017-10-29] MEDS: PRAVASTATIN SOD 40 MG TAB PO SCH (08:44)
[2017-10-29] MEDS: FINASTERIDE 5 MG TAB PO SCH (08:44)
[2017-10-29] MEDS: ASPIRIN 81 MG CHEW TAB CHEW SCH (08:44)
[2017-10-29] MEDS: CHOLECALCIFEROL (VIT D3) 1000 UNIT TAB PO SCH (08:44)
[2017-10-29] MEDS: SENNOSIDES SYRUP 8.8 MG/5 ML CUP PO SCH ×2 (08:44→21:00)
[2017-10-29] MEDS: ARTIFICIAL TEARS OPTH SOLN 15 ML BTL EACH EYE SCH ×3 (08:44→17:19)
[2017-10-29] MEDS: DOCUSATE SODIUM 100 MG/10 ML UDC PO SCH ×2 (08:44→21:00)
[2017-10-29 12:00] VITALS: BP 145/64; PULSE 67; RESP 18; TEMP 97.5; O2SAT 99
--- NOTE | 2017-10-29 12:41 | HHI.HCPN ---
Reason for visit a. To assist with evaluation and management of symptoms including: Debility , poor oral intake. b. To assist medical decision maker(s) with: better understanding of current medical conditions; weighing benefits/burdens of medical treatment options; making medical treatment decisions. . Subjective/Interval History Palliative care follow-up for further clarifications of goals of care. Patient seen in his room, resting in bed in no acute distress. and stepdaughter at bedside. Patient alert to self, disoriented as to place and situation. Denies pain or discomfort. Patient seem more interactive than yesterday. Following simple commands. Patient is afebrile, stable hemodynamically. Tolerating room air. Met with patient's Thao at bedside. Reviewed patient's progressive decline over the past few months. Reviewed likely illness trajectory of dementia to include predictable pattern of decline through stages. Patient appears to be transitioning to late stage/advanced dementia. No longer able to sit up straight in chair, requiring assistance with all ADLs besides feeding, loss of ambulation, dysphagia. As per , goal of therapy is to discharge patient to long-term facility for an additional 6 weeks while she recuperated from recent surgical interventions secondary to fall. reports that the plan is for patient to return home once she is able to care for him. Hospice philosophy and benefits introduced. Reviewed the future role of hospice when patient's clinical condition continues to decline, additional complications or increased symptom burden. Family appears receptive to this. Case discussed with mattress spring encaser. Pending placement to long-term facility. . Family/friend interactions See interval note. . Advance Directives Living Will: Copy in medical record Health Care Surrogate: Copy in medical record Advance Directive Specifics Date completed: 06/05/2016. Health Care Surrogate(s): Patient electing Thao Alarcon as healthcare surrogate decision maker. Alternate surrogate his daughter Benita Jones. . Documented care wishes: Living will with standard verbiage as it pertains to life-prolonging measures if his situation is "hopeless". Patient is Jehovah witness. Requires NO transfusions of whole blood, red cells, white cells, platelets or plasma. . Significant change in goals: Goal of therapy remain unchanged. Objective Vital Signs Date Time Temp Pulse Resp B/P (MAP) Pulse Ox O2 Delivery O2 Flow Rate FiO2 10/29/17 08:00 98.2 78 18 136/63 (87) 97 10/29/17 03:58 98.3 76 18 141/76 (97) 97 10/29/17 00:00 97.6 83 16 136/73 (94) 99 10/28/17 22:34 Room Air 10/28/17 20:00 97.8 80 16 122/57 (78) 97 10/28/17 16:09 97.7 88 18 154/74 (100) 98 Intake & Output 10/29/17 10/29/17 07:00 19:00 Intake Total 100 ml Output Total 400 ml Balance -300 ml Intake Oral 100 ml Output Urine Total 400 ml # Bowel Movements 1 Physical Exam CONSTITUTIONAL/GENERAL: This is a cachectic, frail-looking elderly male in no acute distress. TUBES/LINES/DRAINS: PIV, Aleman catheter. SKIN: No jaundice, rashes, or lesions. Ecchymoses on upper extremities. No wounds seen anteriorly. Skin temperature appropriate. Not diaphoretic. HEAD: Atraumatic. Normocephalic. Bilateral temporal wasting. EYES: Pupils equal and round and reactive. Extraocular motions intact. No scleral icterus. No injection or drainage. mined. ENT: Hearing grossly normal. Nose without bleeding or purulent drainage. Moist oral mucosa. NECK: Trachea midline. Supple, nontender. CARDIOVASCULAR: Regular rate and rhythm without murmurs. Peripheral pulses symmetric. RESPIRATORY/CHEST: Symmetric, unlabored respirations. Clear to auscultation. Breath sounds equal bilaterally. GASTROINTESTINAL: Abdomen soft, non-tender, nondistended. No guarding. Bowel sounds present. GENITOURINARY: Without palpable bladder distension. Aleman catheter in place. MUSCULOSKELETAL: Extremities without clubbing, cyanosis, or edema. No mottling or clubbing. Muscle wasting to all 4 extremities. NEUROLOGICAL: Awake and alert to self. Baseline dementia. Intermittently following simple commands. Verbal, not always able to communicate needs secondary to dementia. Moves all extremities. PSYCHIATRIC: Flat affect. Calm. . Diagnostic Tests Result Diagram: 10/26/17 0850 10/26/17 0850 Procedures * 10/12/17 -endotracheal intubation * 10/22/17 -medical extubation . Assessment and Plan Disease Oriented Problem List: (1) Aspiration pneumonia (2) UTI (urinary tract infection) (3) Dementia with behavioral disturbance (4) Cachexia (5) Physical deconditioning Symptom Scale: (1) Dysphagia 0-10 Scale: Unable to quantify (2) Decreased oral intake 0-10 Scale: Unable to quantify Pertinent Non-Medical Issues Psychosocial: Patient is originally from [place]. Moved to [place] at age 9. He is with current for the past 17 years. They have no children together. Patient has 3 biological children in [place]. Spiritual: Jehovah witness. Legal: Advance directives completed. Ethical issues impacting care: Baseline dementia. Patient's acting as healthcare surrogate decision maker. . Important Contacts Thao Alarcon . . Prognosis Mr. Palm it is a 77-year-old male with a medical history significant for advanced dementia as well as multiple chronic comorbidities. Patient being treated for pneumonia. Extubated on 10/22/17 secondary to hypoxemia, septic shock. Clinical course complicated by pneumonia, poor oral intake. Patient is cachectic, debilitated. At very high risk for further complications, continued decline and . . Code Status: Full Code Plan * CODE STATUS: FULL code. * HEALTHCARE DECISION-MAKING: Patient unable to participate in medical decision making secondary to advanced dementia. Advanced directives completed. Patient elected Thao Alarcon as healthcare surrogate decision maker.Alternate surrogate is daughter Benita Jones. * GOALS OF CARE: As per , goal of therapy is to discharge patient to long- term facility for an additional 6 weeks while she recuperates from recent surgical interventions secondary to fall. reports that the plan is for patient to return home once she is able to care for pt. Reviewed likely illness trajectory of dementia to include predictable pattern of decline through stages. Patient appears to be transitioning to late stage/advanced dementia. No longer able to sit up straight in chair, requiring assistance with all ADLs besides feeding, loss of ambulation, dysphagia. Hospice philosophy and benefits introduced. Reviewed the future role of hospice when patient's clinical condition continues to decline, additional complications or increased symptom burden. Family appears receptive to this. * SYMPTOMS: =dysphagia/poor oral intake: Speech therapy following. Patient currently on pured diet with thin liquids. Artistic Associate following, Ensure 3 times daily. Patient with decreased oral intake, eating between 0-50% of his meals. reports that this is new onset, eating well at home. = Debility: Exacerbated by acute illness, prolonged hospitalization. Patient is cachectic, appears debilitated. Having difficulties with holding his torso straight up. Not likely to improve given advanced dementia, acute illness and prolonged hospitalization. PT following. * Palliative care contact information has been provided to patient's family. * Palliative care will continue to follow up as needed for further clarifications of goals of care as patient's clinical course continues to evolve. . Time Spent Total Floor Time (mins): 41 (Total time to include review of medical records, physical exam, goals of care conversation with .) >50% Counseling/Coord of Care: Yes Attestation To help prompt me to consider important information that might be impacting today's encounter and assessment, information from prior notes written by myself or my colleagues may have been "brought forward" into today's note. My signature on this note, however, is an attestation that I personally performed the exam, history, and/or decision-making noted today, and, unless otherwise indicated, the interactions with patient, family, and staff as well as the review of records all occurred today. I also attest that the listed assessment and stated plan reflect my best clinical judgment today based on the combination of historical information, prior notes, and today's exam/ interactions. When time spent is documented, it refers only to time spent today by the signer, or if indicated, combined time spent today by collaborating physician/nurse practitioner. Randi Royal Oct 29, 2017 12:40
--- NOTE | 2017-10-29 13:32 | HHI.PR ---
Subjective Remarks Follow up dementia, pneumonia. The patient is confused. He states that he has pain, but is not able to describe where. Objective Vitals Vital Signs Date Time Temp Pulse Resp B/P (MAP) Pulse Ox O2 Delivery O2 Flow Rate FiO2 10/29/17 12:00 97.5 67 18 145/64 (91) 99 10/29/17 08:00 98.2 78 18 136/63 (87) 97 10/29/17 03:58 98.3 76 18 141/76 (97) 97 10/29/17 00:00 97.6 83 16 136/73 (94) 99 10/28/17 22:34 Room Air 10/28/17 20:00 97.8 80 16 122/57 (78) 97 10/28/17 16:09 97.7 88 18 154/74 (100) 98 I/O 10/28/17 10/28/17 10/28/17 10/29/17 10/29/17 10/29/17 07:00 15:00 23:00 07:00 15:00 23:00 Intake Total 80 ml 240 ml 100 ml Output Total 50 ml 300 ml 400 ml Balance 30 ml -60 ml -300 ml Intake Oral 80 ml 240 ml 100 ml Output Urine Total 50 ml 300 ml 400 ml # Voids 1 # Bowel Movements 0 0 1 Result Diagram: 10/26/17 0850 10/26/17 0850 Imaging Last Impressions Chest X-Ray 10/22/17 0000 Signed Impressions: Service Date/Time: Sunday, October 22, 2017 10:25 - CONCLUSION: 1. Lungs are clear. 2. Support lines and tubes are unchanged. Endotracheal tube could be retracted approximately 2 cm. Moris Rivera MD Head CT 10/20/17 0000 Signed Impressions: Service Date/Time: Friday, October 20, 2017 01:37 - CONCLUSION: No acute intracranial abnormality. Chronic white matter changes. Dinesh Bal MD Brain MRI 10/20/17 0000 Signed Impressions: Service Date/Time: Friday, October 20, 2017 16:35 - CONCLUSION: 1. No acute pathology. 2. Bilateral cortical atrophy and chronic white matter changes. Nino Field MD Abdomen/Pelvis CT 10/20/17 0000 Signed Impressions: Service Date/Time: Friday, October 20, 2017 01:41 - CONCLUSION: 1. No abscess, high-grade inflammatory changes or other clear etiology in the abdomen or pelvis for reported sepsis. 2. Right base consolidation. 3. 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 4. Tiny nonobstructing stones of the right kidney. 5. Aleman catheter and nasogastric tube present. 1. Dinesh Bal MD Objective Remarks General: No acute distress. Heart: Regular rate and rhythm. No murmur. Lungs: Clear to auscultation bilaterally. No wheezes, rales, or rhonchi. Breathing is nonlabored. Abdomen: Soft, nontender, nondistended. Extremities: No lower extremity edema. Psych: Alert, confused. Procedures None Urinary Catheter: No Vascular Central Line Catheter: No A/P Problem List: (1) Aspiration pneumonia ICD Code: J69.0 - Pneumonitis due to inhalation of food and vomit (2) Dementia with behavioral disturbance ICD Code: F03.91 - Unspecified dementia with behavioral disturbance Status: Acute Assessment and Plan 1. Acute encephalopathy, chronic dementia: Patient is apparently at his baseline mental status. Continue Aricept. CT and MRI of the brain showed no acute findings. 2. Hyperlipidemia: Continue statin. 3. GERD: Continue famotidine. 4. BPH: Continue Flomax, finasteride. 5. Aspiration pneumonia: Completed course of antibiotics. 6. UTI: Urine culture growing Proteus, pansensitive. Completed course of Rocephin. 7. Elevated TSH: T4 is normal. T3 is low. Recheck labs in 4-6 weeks. Likely euthyroid sick syndrome. 8. DVT prophylaxis: Heparin. 9. The patient has poor oral intake. Appreciate nutrition recommendations. Continue pured diet with Ensure shakes. Appreciate palliative care assistance. Discharge Planning Case management assisting with discharge planning. Patient will need SNF placement. Problem Qualifiers (1) Dementia with behavioral disturbance: Qualified Codes: F03.91 - Unspecified dementia with behavioral disturbance Miguel Angel Tilley MD Oct 29, 2017 13:32
[2017-10-29 16:00] VITALS: BP 130/65; PULSE 72; RESP 18; TEMP 97.9; O2SAT 98
[2017-10-29 20:00] VITALS: BP 129/83; PULSE 70; RESP 19; TEMP 98.5; O2SAT 98
[2017-10-29] MEDS: DONEPEZIL HCL 5 MG TAB PO SCH (22:35)
[2017-10-29] MEDS: TAMSULOSIN HCL 0.4 MG CAP PO SCH (22:35)
[2017-10-30] VITALS: BP 155/67; PULSE 68; RESP 18; TEMP 98.5; O2SAT 98
[2017-10-30 04:00] VITALS: BP 134/64; PULSE 72; RESP 18; TEMP 98.4; O2SAT 97
[2017-10-30] MEDS: CHLORHEXIDINE GLUCONATE 2 % 1 PACK (2 CLOTHS) TOP SCH (04:00)
[2017-10-30] MEDS: HEPARIN SODIUM - SQ 10,000 UNITS/ML VIAL SQ SCH (06:00)
[2017-10-30] MEDS: SODIUM CHLORIDE 0.9% FLUSH 10 ML FLUSH IV FLUSH SCH (07:41)
[2017-10-30 08:00] VITALS: BP 118/55; PULSE 77; RESP 18; TEMP 97.5; O2SAT 99
[2017-10-30] MEDS: CHLORHEXIDINE 0.12% (ORAL KIT) 15 ML CUP MT SCH (08:00)
[2017-10-30] MEDS: PRAVASTATIN SOD 40 MG TAB PO SCH (08:16)
[2017-10-30] MEDS: POLYETHYLENE GLYCOL 17 GM PKG PO SCH (08:17)
[2017-10-30] MEDS: ASPIRIN 81 MG CHEW TAB CHEW SCH (08:17)
[2017-10-30] MEDS: CHOLECALCIFEROL (VIT D3) 1000 UNIT TAB PO SCH (08:17)
[2017-10-30] MEDS: FAMOTIDINE 20 MG TAB NG SCH (08:17)
[2017-10-30] MEDS: SENNOSIDES SYRUP 8.8 MG/5 ML CUP PO SCH (08:17)
[2017-10-30] MEDS: FINASTERIDE 5 MG TAB PO SCH (08:17)
[2017-10-30] MEDS: LACTULOSE SYRUP 20 GM/30 ML CUP PO SCH ×2 (08:18→12:00)
[2017-10-30] MEDS: DOCUSATE SODIUM 100 MG/10 ML UDC PO SCH (08:18)
[2017-10-30] MEDS: ARTIFICIAL TEARS OPTH SOLN 15 ML BTL EACH EYE SCH ×2 (08:19→11:58)
[2017-10-30] MEDS ORDERED: CLON0.5T PO (11:31)
--- NOTE | 2017-10-30 11:33 | HHI.DCPOC ---
Discharge Care Plan Diagnosis: (1) Dementia (2) Encephalopathy (3) GERD (gastroesophageal reflux disease) (4) Hyperlipidemia (5) Decreased oral intake (6) Physical deconditioning (7) UTI (urinary tract infection) Goals to Promote Your Health * To prevent worsening of your condition and complications * To maintain your health at the optimal level Directions to Meet Your Goals Take your medications as prescribed Follow your dietary instruction Follow activity as directed Keep your appointments as scheduled Take your immunizations and boosters as scheduled If your symptoms worsen call your PCP, if no PCP go to Urgent Care Center or Emergency Room Smoking is Dangerous to Your Health. Avoid second hand smoke Call the 24-hour hour crisis hotline for domestic abuse at Miguel Angel Tilley MD Oct 30, 2017 11:32
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
[2017-10-30 12:00] VITALS: BP 132/60; PULSE 70; RESP 18; TEMP 97.8; O2SAT 99
== END 2017-10-30 14:00 | DRG 870 ==
LOC: NEPE 22:11 → NEDA 10-15 22:10 → UNDOADMIN 10-15 22:10 → NEDA 10-18 05:00 → HIMN 10-18 06:05 → UNDODISIN 10-23 14:09 → N04B 10-25 15:26
PROVIDERS: ADMIT Family Medicine; ATTEND Family Medicine
PROC: 5A1955Z Respiratory Ventilation, Greater than 96 Consecutive Hours (ICD-10-PCS; principal; 2017-10-18)
PROC: 0BH17EZ Insertion of Endotracheal Airway into Trachea, Via Natural or Artificial Opening (ICD-10-PCS; 2017-10-18)
DX: A41.9 Sepsis, unspecified organism (principal); J96.01 Acute respiratory failure with hypoxia; J69.0 Pneumonitis due to inhalation of food and vomit; R65.21 Severe sepsis with septic shock; G93.49 Other encephalopathy; R64 Cachexia; R13.10 Dysphagia, unspecified; F03.91 Unspecified dementia, unspecified severity, with behavioral disturbance; R45.851 Suicidal ideations; Q62.39 Other obstructive defects of renal pelvis and ureter; E83.39 Other disorders of phosphorus metabolism; Z68.1 Body mass index [BMI] 19.9 or less, adult; N39.0 Urinary tract infection, site not specified; D64.9 Anemia, unspecified; N40.0 Benign prostatic hyperplasia without lower urinary tract symptoms; N20.0 Calculus of kidney; E78.5 Hyperlipidemia, unspecified; K21.9 Gastro-esophageal reflux disease without esophagitis; K59.00 Constipation, unspecified; B96.89 Other specified bacterial agents as the cause of diseases classified elsewhere; E07.81 Sick-euthyroid syndrome; Z79.82 Long term (current) use of aspirin
CPT/HCPCS: 36600; 70450; 70551; 71045; 74177; 80048; 80053; 80202; 80307; 81001; 82550; 82805; 82948; 83605; 83735; 84100; 84132; 84439; 84443; 84481; 85025; 85027; 85610; 85730; 87040; 87070; 87077; 87086; 87186; 87205; 87449; 87641; 87804; 94002; 94003; 94640; 94664; 95819; 96372; 96374; 99284; J0456; J0696; J1630; J1644; J1940; J2060; J2212; J2543; J3370; J3480; J7030; J7042; J7050; Q9967

== ENCOUNTER 2017-11-13 06:16 | Inpatient (IN) | payer OTHER, MEDICAID, MEDICARE ==
[2017-11-13] VITALS (22 sets, daily range): BP systolic 104–136; BP diastolic 57–76; PULSE 69–136; RESP 12–34; TEMP 99.2–100.3; O2SAT 94–100
[~2017-11-13] VITALS: Ht 152.4 cm; Wt 45.0 kg
[~2017-11-13 06:16] MED LIST: ASPI-516 CHEW; CLON0.5T PO; DONE10TA7 PO; FINA5TAB2; OMEP20TA93 PO; SIMV20TA PO; TAMS0.4C4 PO; VITA100064 PO
[2017-11-13] MEDS ORDERED: ETOMIDATE 40 MG/20 ML VIAL ONE (06:21)
[2017-11-13] MEDS ORDERED: NALOXONE HCL 0.4 MG/ML AMP ONE (06:22)
[2017-11-13] MEDS ORDERED: SODIUM CHLOR 0.9% 1000 ML INJ 1,000 ML IV ONE (06:34)
[2017-11-13] MEDS ORDERED: PIPERACIL-TAZO 3.375 GM PREMIX 50 ML IV ONE (06:45)
[2017-11-13] MEDS ORDERED: NALOXONE HCL 0.4 MG/ML AMP IV PUSH ONE (06:45)
[2017-11-13] MEDS ORDERED: VANCOMYCIN INJ 1,000 MG in SODIUM CHLOR 0.9% 250 ML INJ 250 ML IV ONE (06:45)
[2017-11-13] MEDS ORDERED: ETOMIDATE 20 MG/10 ML VIAL IVP ONE (06:45)
[2017-11-13] MEDS ORDERED: SUCCINYLCHOLINE CHLORIDE 200 MG/10 ML VIAL IV PUSH ONE (06:45)
[2017-11-13] MEDS ORDERED: SODIUM CHLORIDE 0.9% FLUSH 10 ML FLUSH IVF PRN (06:45)
[2017-11-13] MEDS: RESP: ALBUTEROL 2.5 MG/IPRATROPIUM 0.5 MG NEB (SCH) INH ×5 (07:00→21:17)
[2017-11-13] MEDS ORDERED: RESP: ALBUTEROL 2.5 MG/3 ML NEB (PRN) INH (07:00)
[2017-11-13] MEDS ORDERED: MISCELLANEOUS NURSING INFORMATION XX SCH (07:00)
[2017-11-13] MEDS ORDERED: SODIUM CHLORIDE 0.9% FLUSH 10 ML FLUSH IV FLUSH PRN (07:00)
[2017-11-13] MEDS ORDERED: CHLORHEXIDINE GLUCONATE 2 % 1 PACK (2 CLOTHS) TOP PRN (07:00)
[2017-11-13 07:02] LABS: AUTOMATED NEUTROPHIL # 8.9 TH/MM3 (1.8-7.7); BASOPHIL % 0.4 % (0.0-2.0); EOSINOPHIL % 0.1 % (0.0-4.0); HEMATOCRIT 39.6 % (39.0-51.0); HEMOGLOBIN 13.1 GM/DL (13.0-17.0); LYMPH % 12.3 % (9.0-44.0); LYMPHOCYTE # 1.3 TH/MM3 (1.0-4.8); MEAN CELL VOLUME 95.9 FL (80.0-100.0); MEAN CORPUSCULAR HEMOGLOBIN 31.7 PG (27.0-34.0); MEAN CORPUSCULAR HGB CONC 33.1 % (32.0-36.0); MEAN PLATELET VOLUME 7.5 FL (7.0-11.0); MONO % 1.7 % (0.0-8.0); MONOCYTE # 0.2 TH/MM3 (0-0.9); NEUT % 85.5 % (16.0-70.0); PLATELET COUNT 307 TH/MM3 (150-450); RED BLOOD COUNT 4.13 MIL/MM3 (4.50-5.90); RED CELL DISTRIBUTION WIDTH 14.4 % (11.6-17.2); WHITE BLOOD COUNT 10.4 TH/MM3 (4.0-11.0)
[2017-11-13] MEDS ORDERED: MIDAZOLAM HCL 5 MG/ML VIAL (1 ML) ONE (07:10)
[2017-11-13] MEDS ORDERED: MIDAZOLAM HCL 5 MG/5 ML VIAL IV PUSH ONE (07:15)
[2017-11-13 07:20] LABS: ALBUMIN 3.2 GM/DL (3.4-5.0); ALT (GPT) 34 U/L (12-78); AST (GOT) 38 U/L (15-37); BICARBONATE 25.4 MEQ/L (21.0-32.0); BLOOD UREA NITROGEN 30 MG/DL (7-18); CALCIUM 8.5 MG/DL (8.5-10.1); CHLORIDE 107 MEQ/L (98-107); GLOMERULAR FILTRATION RATE 59 ML/MIN (>89); GLUCOSE,RANDOM 277 MG/DL (74-106); MAGNESIUM 2.4 MG/DL (1.5-2.5); SODIUM (NA) 143 MEQ/L (136-145)
--- NOTE | 2017-11-13 07:21 | RADRPT ---
EXAM DATE/TIME: 11/13/2017 06:49 [facility] COMPARISON: CHEST SINGLE AP, October 22, 2017, 10:25. INDICATIONS : Post intubation. MEDICAL HISTORY : Unobtainable. SURGICAL HISTORY : Unobtainable. ENCOUNTER: Initial ACUITY: 1 day PAIN SCORE: Non-responsive. LOCATION: chest FINDINGS: A single view of the chest demonstrates the lungs to be symmetrically aerated without evidence of mas s, infiltrate or effusion. Endotracheal tube tip present jay. Nasogastric tube tip just beyond the GE junction. The cardiomediastinal contours are unremarkable. Osseous structures are intact. CONCLUSION: Adequate placement of endotracheal tube. Moris Rivera MD on November 13, 2017 at 7:07 Board Certified Radiologist. This report was verified electronically.
[2017-11-13 07:24] LABS: ALKALINE PHOSPHATASE 69 U/L (45-117); TOTAL BILIRUBIN ADULT 0.3 MG/DL (0.2-1.0); TOTAL PROTEIN 7.6 GM/DL (6.4-8.2); TROPONIN I LESS THAN 0.02 NG/ML (0.02-0.05)
[2017-11-13 07:26] LABS: LACTIC ACID SEPSIS PROTOCOL 5.3 mmol/L (0.4-2.0)
[2017-11-13] MEDS: SODIUM CHLOR 0.9% 1000 ML INJ 1,000 ML IV SCH ×5 (07:33→18:36)
--- NOTE | 2017-11-13 07:35 | PD ---
HPI Chief Complaint: Respiratory Distress Time Seen by Provider: 06:30 Travel History International Travel<30 days: No Contact w/Intl Traveler<30days: No Traveled to known affect area: No History of Present Illness HPI The patient is a 77 year old male who presents to the [facility] emergency department with a history of shortness of breath that began sometime prior to arrival. The patient is a resident at a local long-term. The ambulance services that brought the patient and reported that the long-term staff told them that they are not familiar with the patient. No medication record was brought with the patient. The patient is reportedly a full code. The patient according to ambulance services was just seen in the emergency department yesterday and diagnosed with pneumonia. The patient was noted on their arrival to the long-term to have O2 saturations of 64% on high flow nasal cannula O2. The patient was placed on a nonrebreather mask and his saturations only went up to the mid 70s. The patient was then bagged by ambulance services in route to this facility. The patient has a history of dementia. The patient is unable to provide any history on arrival. [facility] Past Medical History Narrative Medical The patient's past medical history is obtained from reviewing the electronic medical record. The patient was recently admitted to the hospital on October 18 through the beginning of October related to sepsis with respiratory failure thought to be related to an aspiration pneumonia. The patient is noted to have a past medical history of dementia. Medical History: Unable to Obtain Dementia: Yes Diminished Hearing: No Tetanus Vaccination: Unknown Past Surgical History Narrative Surgical The patient's past surgical history is unable to be obtained. Surgical History: Unable to Obtain Social History Alcohol Use: No Tobacco Use: No Substance Use: No Allergies-Medications (Allergen,Severity, Reaction): Coded Allergies: No Known Allergies (Unverified , 10/12/17) Reported Meds & Prescriptions Reported Meds & Active Scripts Active Clonazepam 0.5 Mg Tab 0.5 Mg PO BID Reported Tamsulosin (Tamsulosin HCl) 0.4 Mg Cap 0.4 Mg PO HS Finasteride 5 Mg Tab 5 Mg DAILY Do not crush. Vitamin D3 (Cholecalciferol) 1,000 Unit Tab 1,000 Units PO DAILY Simvastatin 20 Mg Tab 20 Mg PO DAILY Donepezil 10 Mg Tab 10 Mg PO HS Omeprazole 20 Mg Tab 20 Mg PO DAILY Aspirin 81 Mg Chew 81 Mg CHEW DAILY Review of Systems ROS Limitations: Altered Mental Status, Unresponsive Physical Exam Narrative General: The patient is a well-developed cachectic male in respiratory distress being bagged by ambulance services. Head and Neck exam: Head is normocephalic atraumatic. Eyes: Extraocular motion testing is unable to be accomplished in this patient who is unable to follow commands. The patient has pinpoint pupils bilaterally per Nose: Midline septum with pink mucous membranes Mouth: Dentition unremarkable. Moist mucus membranes. Posterior oropharynx is not erythematous. No tonsillar hypertrophy. Uvula midline. Airway patent. Neck: No palpable lymphadenopathy. No nuchal rigidity. No thyromegaly. Cardiovascular: Sinus tachycardia in the 130 without murmurs, gallops, or rubs. No pulse deficit to the extremities on simultaneous auscultation and palpation of his radial artery. Lungs: Decreased breath sounds in bilateral lung bases, soft anterior expiratory wheezes audible. Poor air movement in general. The patient has paroxysmal abdominal breathing and accessory muscle use. Abdomen: Soft, without tenderness to palpation in all 4 quadrants of the abdomen. No guarding, rebound, or rigidity. Normal bowel sounds are audible. No tenderness on palpation of McBurney's point. Extremities: No clubbing, cyanosis, or edema. 2+ pulses in all 4 extremities. Back: No costovertebral angle tenderness to palpation. Neurologic Exam: Formal neurologic testing is unable to be accomplished in this patient who is not following commands, however he is spontaneously moving all extremities equally with 5/5 strength. Intact sensation over all dermatomes. No obvious facial asymmetry. Skin Exam: No rash noted. Intact skin that is warm and dry. Data Data Last Documented VS Vital Signs Date Time Temp Pulse Resp B/P (MAP) Pulse Ox O2 Delivery O2 Flow Rate FiO2 11/13/17 07:25 117 121/62 (81) 100 Ventilator 100 11/13/17 06:34 100.3 12 Orders Orders Etomidate Inj (Amidate Inj) (11/13/17 06:21) Naloxone Inj (Narcan Inj) (11/13/17 06:22) Electrocardiogram (11/13/17 06:34) Complete Blood Count With Diff (11/13/17 06:34) Comprehensive Metabolic Panel (11/13/17 06:34) Creatine Kinase (Cpk) (11/13/17 06:34) Ckmb (Isoenzyme) Profile (11/13/17 06:34) Troponin I (11/13/17 06:34) B-Type Natriuretic Peptide (11/13/17 06:34) Prothrombin Time / Inr (Pt) (11/13/17 06:34) Act Partial Throm Time (Ptt) (11/13/17 06:34) Arterial Blood Gas (Abg) (11/13/17 06:34) Blood Culture (11/13/17 06:34) C-Reactive Protein (Crp) (11/13/17 06:34) Lipase (11/13/17 06:34) Urinalysis - C+S If Indicated (11/13/17 06:34) Magnesium (Mg) (11/13/17 06:34) Chest, Single Ap (11/13/17 06:34) Iv Access Insert/Monitor (11/13/17 06:34) Ecg Monitoring (11/13/17 06:34) Oximetry (11/13/17 06:34) Urinary Catheter Insert/Apply (11/13/17 06:34) Jamar-Gastric Tube Insert/Mon (11/13/17 06:34) Etomidate Inj (Amidate Inj) (11/13/17 06:45) Succinylcholine Inj (Quelicin Inj) (11/13/17 06:45) Albuterol-Ipratropium Neb (Duoneb Neb) (11/13/17 06:45) Sodium Chloride 0.9% Flush (Ns Flush) (11/13/17 06:45) Sodium Chlor 0.9% 1000 Ml Inj (Ns 1000 M (11/13/17 06:34) Restraints Non-Violent RENUKA.Q3H (11/13/17 06:34) Naloxone Inj (Narcan Inj) (11/13/17 06:45) Vancomycin Inj (Vancomycin Inj) (11/13/17 06:45) Piperacil-Tazo 3.375 Gm Premix (Zosyn 3. (11/13/17 06:45) Lactic Acid Sepsis Protocol (11/13/17 06:34) Sputum Culture And Gram Stain (11/13/17 06:56) Admit Order (Ed Use Only) (11/13/17 06:56) Admit To Inpatient (11/13/17 ) Vital Signs (Adult) Q1H (11/13/17 06:54) [place]man / Telemetry RENUKA.Q8H (11/13/17 06:54) Intake + Output RENUKA.Q8H (11/13/17 06:54) Diet Npo (11/13/17 Breakfast) Sodium Chlor 0.9% 1000 Ml Inj (Ns 1000 M (11/13/17 07:00) Sodium Chloride 0.9% Flush (Ns Flush) (11/13/17 07:00) Sodium Chloride 0.9% Flush (Ns Flush) (11/13/17 09:00) Albuterol-Ipratropium Neb (Duoneb Neb) (11/13/17 07:45) Albuterol Neb (Albuterol Neb) (11/13/17 07:00) Chlorhexidine 0.12% Liq (Peridex 0.12% L (11/13/17 08:00) Pantoprazole Inj (Protonix Inj) (11/13/17 09:00) Famotidine Inj (Pepcid Inj) (11/13/17 09:00) Famotidine (Pepcid) (11/13/17 09:00) Complete Blood Count With Diff (11/14/17 06:00) Comprehensive Metabolic Panel (11/14/17 06:00) Sputum Culture And Gram Stain (11/13/17 06:54) Chest, Single Ap (11/14/17 06:00) Resp Pulse Oximetry (11/13/17 ) Arterial Blood Gas (Abg) (11/13/17 ) Resp Ventilation- Volume (11/13/17 ) Consult Cm-Day 5 Ltac Eval (11/13/17 ) Enoxaparin Inj (Lovenox Inj) (11/13/17 08:00) Scd Bilateral/Knee High RENUKA.BID (11/13/17 06:54) Madhu Bilateral/Knee High RENUKA.QSHIFT (11/13/17 07:00) ^ Initiate Protocol (11/13/17 06:54) Instruction (11/13/17 06:54) Misc Nursing Information (11/13/17 07:00) Chlorhexidine 2% Cloth (Chlorhexidine 2% (11/14/17 04:00) Chlorhexidine 2% Cloth (Chlorhexidine 2% (11/13/17 07:00) Mrsa Pcr Surveillance (11/13/17 06:54) Inpatient Certification (11/13/17 ) Piperacil-Tazo 3.375 Gm Premix (Zosyn 3. (11/13/17 12:00) Ct Pulmonary Angiogram (11/13/17 ) Midazolam Inj (Versed Inj) (11/13/17 07:15) Midazolam Inj (Versed Inj) (11/13/17 07:10) CKMB (11/13/17 06:45) CKMB% (11/13/17 06:45) Propofol 1000 Mg/100 Ml Inj (Diprivan 10 (11/13/17 07:45) Labs Laboratory Tests Test 11/13/17 06:43 11/13/17 06:45 11/13/17 07:05 11/13/17 07:21 White Blood Count 10.4 TH/MM3 Red Blood Count 4.13 MIL/MM3 Hemoglobin 13.1 GM/DL Hematocrit 39.6 % Mean Corpuscular Volume 95.9 FL Mean Corpuscular Hemoglobin 31.7 PG Mean Corpuscular Hemoglobin Concent 33.1 % Red Cell Distribution Width 14.4 % Platelet Count 307 TH/MM3 Mean Platelet Volume 7.5 FL Neutrophils (%) (Auto) 85.5 % Lymphocytes (%) (Auto) 12.3 % Monocytes (%) (Auto) 1.7 % Eosinophils (%) (Auto) 0.1 % Basophils (%) (Auto) 0.4 % Neutrophils # (Auto) 8.9 TH/MM3 Lymphocytes # (Auto) 1.3 TH/MM3 Monocytes # (Auto) 0.2 TH/MM3 Eosinophils # (Auto) 0.0 TH/MM3 Basophils # (Auto) 0.0 TH/MM3 CBC Comment DIFF FINAL Differential Comment Blood Urea Nitrogen 30 MG/DL Creatinine 1.20 MG/DL Random Glucose 277 MG/DL Total Protein 7.6 GM/DL Albumin 3.2 GM/DL Calcium Level 8.5 MG/DL Magnesium Level 2.4 MG/DL Alkaline Phosphatase 69 U/L Aspartate Amino Transf (AST/SGOT) 38 U/L Alanine Aminotransferase (ALT/SGPT) 34 U/L Total Bilirubin 0.3 MG/DL Sodium Level 143 MEQ/L Potassium Level 4.4 MEQ/L Chloride Level 107 MEQ/L Carbon Dioxide Level 25.4 MEQ/L Anion Gap 11 MEQ/L Estimat Glomerular Filtration Rate 59 ML/MIN Lactic Acid Level 5.3 mmol/L Total Creatine Kinase 328 U/L Creatine Kinase MB 1.7 NG/ML Creatine Kinase MB % 0.5 % Troponin I LESS THAN 0.02 NG/ML C-Reactive Protein 1.70 MG/DL Lipase 188 U/L Urine Color YELLOW Urine Turbidity HAZY Urine pH 5.5 Urine Specific [place] 1.021 Urine Protein 100 mg/dL Urine Glucose (UA) NEG mg/dL Urine Ketones NEG mg/dL Urine Occult Blood MOD Urine Nitrite NEG Urine Bilirubin NEG Urine Urobilinogen LESS THAN 2.0 MG/DL Urine Leukocyte Esterase SMALL Urine RBC 26 /hpf Urine WBC 9 /hpf Urine Squamous Epithelial Cells 2 /hpf Urine Transitional Epithelial Cells 1 /hpf Urine Renal Epithelial Cells 1 /hpf Urine Bacteria OCC /hpf Urine Hyaline Casts 22 /lpf Urine Mucus FEW /lpf Microscopic Urinalysis Comment CULTURE INDICATED Blood Gas Puncture Site RT RADIAL Blood Gas Patient Temperature 98.6 Blood Gas HCO3 19 mmol/L Blood Gas Base Excess -6.0 mmol/L Blood Gas Oxygen Saturation 99 % Arterial Blood pH 7.34 Arterial Blood Partial Pressure CO2 35 mmHg Arterial Blood Partial Pressure O2 502 mmHG Arterial Blood Oxygen Content 17.7 Vol % Arterial Blood Carboxyhemoglobin 0.5 % Arterial Blood Methemoglobin 0.6 % Blood Gas Hemoglobin 11.8 G/DL Oxygen Delivery Device VENTILATOR Blood Gas Ventilator Setting PRVC / AC / Blood Gas Inspired Oxygen 100 % MDM Medical Decision Making Medical Screen Exam Complete: Yes Emergency Medical Condition: Yes Medical Record Reviewed: Yes Interpretation(s) Last Impressions Chest X-Ray 11/13/17 0634 Signed Impressions: Service Date/Time: Monday, November 13, 2017 06:49 - CONCLUSION: Adequate placement of endotracheal tube. Moris Rivera MD Differential Diagnosis Pneumonia, versus aspiration, versus respiratory failure from acute coronary syndrome, versus congestive heart failure, versus COPD exacerbation, versus pulmonary embolism Narrative Course During the course of the patient's emergency department visit, the patient was placed on a sheet metal journeyman with oximetry and frequent blood pressure monitoring. The patient had IV access obtained and blood work sent for analysis. Respiratory therapy was called to the bedside while the patient was assisted by bag valve mask. The patient was placed on high flow oxygen by nasal cannula by me in preparation for intubation. RSI was done by me. The patient was easily intubated with an 8 size endotracheal tube. The patient was noted to have copious yellow thin secretions in the posterior oropharynx and upper airway. This will be cultured. The patient was initially provided etomidate and succinylcholine for intubation , normal saline 1 L IV fluid bolus. The patient was provided propofol for sedation. The patient had an OG tube placed to gravity. The patient had a Aleman catheter placed to gravity. The patient's rectal temperature was 100.3. The patient is suspected to be septic. The patient is started on broad- spectrum antibiotic to include vancomycin 1 g IV, Zosyn 3.375 g IV. The patient is provided duo nebs 3. The patient's laboratory studies were reviewed and remarkable for a white count of 10.4, hemoglobin 13.1, platelets 307 with 85.5 neutrophils, CMP is remarkable for BUN of 30, glucose 277, AST 38, CPK 328, MB percent 0.5, troponin I less than 0.02, C-reactive protein 1.7, lactic acid 5.3, urinalysis shows 26 RBCs 9 WBCs, occasional bacteria, culture indicated. Radiology studies were reviewed and remarkable for a chest x-ray that shows an endotracheal tube that appears to be in good position. The patient's results were discussed with the patient, including the plan of care. I explained that further testing and/ or monitoring is indicated based on the patient's history, examination, and/ or laboratory findings. Therefore, I recommended admission for additional evaluation. The patient expressed understanding and was agreeable with this plan. The patient was admitted to the hospital in critical condition and sent to a bed under the care of the exterminator service. Critical Care Narrative Aggregate critical care time was 32 minutes. Time to perform other separately billable procedures was not included in the critical care time. My time did not include minutes spent treating any other patients simultaneously or on activities that did not directly contribute to the patient's treatment. The services I provided to this patient were to treat and/or prevent clinically significant deterioration that could result in: Hypoxic brain injury from respiratory failure, versus cardiovascular collapse from sepsis I provided critical care services requiring my management, as noted below: Chart data review, documentation time, medication orders and management, vital sign assessments/reviewing monitor data, ordering and reviewing lab tests, ordering and interpreting/reviewing x-rays and diagnostic studies, care of the patient and discussion of the patient with the admitting physicians. Procedures Procedure Narrative The patient was put in optimal position for the procedure. Rapid sequence intubation was initiated by me using 20 milligrams of etomidate IV and 100 milligrams of succinylcholine IV. The patient was intubated with a 8 cuffed endotracheal tube using a MAC 3 blade. The patient's cords were easily visualized. Tube placement was confirmed by visualization of the tube and balloon passing through the cords, capnometry and subsequent chest x-ray. Breath sounds were equal and well aerated bilaterally postintubation. No breath sounds over stomach. Patient tolerated procedure well. Physician Communication Physician Communication The patient's case including history, pertinent physical examination findings, and laboratory studies were discussed with Dr. Montiel. It was agreed that the patient would be admitted to the exterminator service. Diagnosis Primary Impression: Respiratory failure Qualified Codes: J96.01 - Acute respiratory failure with hypoxia Admitting Information Admitting Physician Requests: Admit Paula Halie MD Nov 13, 2017 07:35
[2017-11-13 07:40] LABS: BACTERIA, URINE OCC /hpf; BILIRUBIN, URINE NEG (NEG); BLOOD, URINE MOD (NEG); GLUCOSE,URINE NEG (NEG); HYALINE CAST, URINE 22 /lpf (RARE); KETONE, URINE NEG (NEG); MUCUS URINE FEW /lpf (OCC); NITRITE,URINE NEG (NEG); PH, URINE 5.5 (5.0-8.5); RENAL EPITHELIAL CELLS 1 /hpf; SQUAMOUS EPITHELIAL CELL URINE 2 /hpf (0-5); TRANSITIONAL EPI CELLS, URINE 1 /hpf; URINE COLOR YELLOW (YELLW/STRAW); URINE LEUKOCYTE ESTERASE SMALL (NEG)
[2017-11-13] MEDS: PROPOFOL 1000 MG/100 ML INJ 100 ML IV PRN ×3 (07:45→23:06)
[2017-11-13] MEDS ORDERED: PANTOPRAZOLE SODIUM 40 MG VIAL IV PUSH SCH (09:00)
[2017-11-13] MEDS ORDERED: FAMOTIDINE 20 MG TAB TUBE SCH (09:00)
[2017-11-13] MEDS: SODIUM CHLORIDE 0.9% FLUSH 10 ML FLUSH IV FLUSH SCH ×2 (09:00→21:52)
[2017-11-13] MEDS ORDERED: IOHEXOL 350 MG/ML 10 ML VIAL (for RAD DIAG) IVCONTRAST ONE (09:23)
--- NOTE | 2017-11-13 09:36 | RADRPT ---
EXAM DATE/TIME: 11/13/2017 09:06 [place] COMPARISON: No previous studies available for comparison. INDICATIONS : Shortness of breath, Unresponsive. IV CONTRAST: 65 cc Omnipaque 350 (iohexol) IV RADIATION DOSE: 5.61 CTDIvol (mGy) MEDICAL HISTORY : Non-responsive. SURGICAL HISTORY : Non-responsive. ENCOUNTER: Initial ACUITY: 1 day PAIN SCALE: Non-responsive LOCATION: chest TECHNIQUE: Volumetric scanning of the chest was performed using a pulmonary embolism protocol MIP images were re constructed. Using automated exposure control and adjustment of the mA and/or kV according to patien t size, radiation dose was kept as low as reasonably achievable to obtain optimal diagnostic quality images. DICOM format image data is available electronically for review and comparison. Follow-up recommendations for detected pulmonary nodules are based at a minimum on nodule size and pa tient risk factors according to Fleischner Society Guidelines. FINDINGS: Mild emphysematous changes and minimal peribronchial thickening is noted. Minimal airspace disease i s present in the left base. There is no axillary adenopathy There is no mediastinal adenopathy There is excellent visualization of the central pulmonary vessels. There is no evidence of central p ulmonary emboli. There is no pericardial effusion Upper abdominal contents are unremarkable. Nasogastric tube is across the GE junction. CONCLUSION: 1. Minimal airspace disease left base without consolidation 2. No significant pleural effusion 3. No central pulmonary emboli Brown Márquez MD FACR on November 13, 2017 at 9:32 Board Certified Radiologist. This report was verified electronically.
[2017-11-13] MEDS: PIPERACIL-TAZO 3.375 GM PREMIX 50 ML IV SCH ×2 (12:00→18:21)
--- NOTE | 2017-11-13 14:39 | HHI.HP ---
[facility] Service Critical Care Medicine Primary Care Physician Ludwig Childs, DO Admission Diagnosis Respiratory Failure, Pneumonia Diagnosis: (1) Severe sepsis Diagnosis: Principal (2) Acute hypoxemic respiratory failure Diagnosis: Principal (3) Aspiration pneumonia Diagnosis: Principal (4) UTI (urinary tract infection) Diagnosis: Principal (5) Encephalopathy Diagnosis: Principal (6) Hyperlipidemia Diagnosis: Secondary (7) Dementia Diagnosis: Secondary Chief Complaint: Acute hypoxemic respiratory failure Recurrent aspiration Travel History International Travel<30 Days: No Contact w/Intl Traveler <30 Da: No Traveled to Known Affected Are: No Sepsis Criteria SIRS Criteria (2 or more): Heart rate over 90, RR > 20 or PaCO2 < 32 Sepsis Criteria (SIRS+source): Infect source susp/known Severe Sepsis (+one): Lactate >2 Septic Shock Criteria: Lactic acid >=4 Criteria Outcome: Meets severe sepsis criteria History of Present Illness Patient is a 77-year-old male with past medical history significant for recurrent aspiration pneumonia, advanced dementia who was brought in by EMS from [facility] due to severe acute shortness of breath and severe hypoxemia. Patient was admitted to [facility] from October 18 - October 31, 2017 for hypoxemic respiratory failure from aspiration pneumonia. Patient was discharged to [facility] and then got admitted to [facility] per for aspiration pneumonia, and was just discharged from [facility] yesterday. Int the [place], EMS noted O2 saturations of 64% on nasal cannula O2. The patient was placed on a nonrebreather mask and his saturations only went up to the mid 70s, then was bagged and brought to [place]. Intubated in the ED by Dr. Haile. CXR did not show any acute infiltrate, CT pulmonary angiogram did not show a PE but showed left lower lobe airspace disease. Patient received a dose of vancomycin and Zosyn in the ED I evaluated the patient in the ICU. Patient received 1 L fluid bolus in the ED. Lactic acid came back at 5.3 and additional 2L NS ordered. We will place on Zosyn 4.5 g IV every 6 hours. UA shows also evidence of UTI. I discussed with and explained to her in detail swallow evaluation for aspiration is warranted after extubation, patient is at high risk of recurrent aspiration due to advanced dementia Review of Systems ROS Limitations: Intubated Past Family Social History Allergies: Coded Allergies: No Known Allergies (Unverified , 10/12/17) Past Medical History Dementia Recurrent aspiration pneumonia Hyperlipidemia GERD BPH Past Surgical History No major surgeries in the past Reported Medications Clonazepam 0.5 Mg Tab 0.5 Mg PO BID Tamsulosin (Tamsulosin HCl) 0.4 Mg Cap 0.4 Mg PO HS Finasteride 5 Mg Tab 5 Mg DAILY Vitamin D3 (Cholecalciferol) 1,000 Unit Tab 1,000 Units PO DAILY Simvastatin 20 Mg Tab 20 Mg PO DAILY Donepezil 10 Mg Tab 10 Mg PO HS Omeprazole 20 Mg Tab 20 Mg PO DAILY Aspirin 81 Mg Chew 81 Mg CHEW DAILY Active Ordered Medications Reviewed Family History Mother had gastric cancer and dementia in her late stage of life Social History Smoked in his teens, no alcohol use Physical Exam Vital Signs Vital Signs Date Time Temp Pulse Resp B/P (MAP) Pulse Ox O2 Delivery O2 Flow Rate FiO2 11/13/17 12:03 100 40 11/13/17 12:00 100 11/13/17 09:30 100 11/13/17 09:10 11/13/17 09:06 103 22 115/63 (80) 100 Ventilator 100 11/13/17 09:00 100 11/13/17 08:40 110 23 130/74 (92) 97 Ventilator 100 11/13/17 07:47 111 30 124/60 (81) 100 Ventilator 100 11/13/17 07:25 117 121/62 (81) 100 Ventilator 100 11/13/17 07:00 136 34 131/76 (94) 99 Ventilator 100 11/13/17 06:52 100 11/13/17 06:43 98 Bag Valve 100 11/13/17 06:34 100.3 134 12 136/64 (88) 98 11/13/17 06:27 100 100 Physical Exam General: Patient is a cachectic elderly male who is intubated sedated with propofol Head is normocephalic atraumatic. Eyes: Pupils are 2 mm equal ENT: Oral cavity is dry airway patent Neck: supple Cardiovascular: Sinus tachycardia in 110s without murmurs, gallops, or rubs. Lungs: Decreased breath sounds in bilateral lung bases, no wheezes or crackles Abdomen: Soft, without tenderness to palpation in all 4 quadrants of the abdomen. No guarding, rebound, or rigidity. Extremities: No clubbing, cyanosis, or edema. 2+ pulses in all 4 extremities. Neuro: Intubated heavily sedated. Withdraws all extremities to pain. Laboratory Laboratory Tests Test 11/13/17 06:43 11/13/17 06:45 11/13/17 07:05 11/13/17 07:21 White Blood Count 10.4 Red Blood Count 4.13 Hemoglobin 13.1 Hematocrit 39.6 Mean Corpuscular Volume 95.9 Mean Corpuscular Hemoglobin 31.7 Mean Corpuscular Hemoglobin Concent 33.1 Red Cell Distribution Width 14.4 Platelet Count 307 Mean Platelet Volume 7.5 Neutrophils (%) (Auto) 85.5 Lymphocytes (%) (Auto) 12.3 Monocytes (%) (Auto) 1.7 Eosinophils (%) (Auto) 0.1 Basophils (%) (Auto) 0.4 Neutrophils # (Auto) 8.9 Lymphocytes # (Auto) 1.3 Monocytes # (Auto) 0.2 Eosinophils # (Auto) 0.0 Basophils # (Auto) 0.0 CBC Comment DIFF FINAL Differential Comment B-Type Natriuretic Peptide 10 Blood Urea Nitrogen 30 Creatinine 1.20 Random Glucose 277 Total Protein 7.6 Albumin 3.2 Calcium Level 8.5 Magnesium Level 2.4 Alkaline Phosphatase 69 Aspartate Amino Transf (AST/SGOT) 38 Alanine Aminotransferase (ALT/SGPT) 34 Total Bilirubin 0.3 Sodium Level 143 Potassium Level 4.4 Chloride Level 107 Carbon Dioxide Level 25.4 Anion Gap 11 Estimat Glomerular Filtration Rate 59 Lactic Acid Level 5.3 Total Creatine Kinase 328 Creatine Kinase MB 1.7 Creatine Kinase MB % 0.5 Troponin I LESS THAN 0.02 C-Reactive Protein 1.70 Lipase 188 Urine Color YELLOW Urine Turbidity HAZY Urine pH 5.5 Urine Specific [place] 1.021 Urine Protein 100 Urine Glucose (UA) NEG Urine Ketones NEG Urine Occult Blood MOD Urine Nitrite NEG Urine Bilirubin NEG Urine Urobilinogen LESS THAN 2.0 Urine Leukocyte Esterase SMALL Urine RBC 26 Urine WBC 9 Urine Squamous Epithelial Cells 2 Urine Transitional Epithelial Cells 1 Urine Renal Epithelial Cells 1 Urine Bacteria OCC Urine Hyaline Casts 22 Urine Mucus FEW Microscopic Urinalysis Comment CULTURE INDICATED Blood Gas Puncture Site RT RADIAL Blood Gas Patient Temperature 98.6 Blood Gas HCO3 19 Blood Gas Base Excess -6.0 Blood Gas Oxygen Saturation 99 Arterial Blood pH 7.34 Arterial Blood Partial Pressure CO2 35 Arterial Blood Partial Pressure O2 502 Arterial Blood Oxygen Content 17.7 Arterial Blood Carboxyhemoglobin 0.5 Arterial Blood Methemoglobin 0.6 Blood Gas Hemoglobin 11.8 Oxygen Delivery Device VENTILATOR Blood Gas Ventilator Setting PRVC / AC / Blood Gas Inspired Oxygen 100 Test 11/13/17 08:30 Date/Time Source Procedure Growth Status 11/13/17 06:45 Blood Peripheral Aerobic Blood Culture Pending Received 11/13/17 06:45 Blood Peripheral Anaerobic Blood Culture Pending Received 11/13/17 07:00 Sputum Endotracheal Gram Stain - Final Resulted 11/13/17 07:00 Sputum Endotracheal Sputum Culture Pending Resulted 11/13/17 07:05 Urine Random Urine Urine Culture Pending Received Result Diagram: 11/13/17 0643 11/13/[address] PE protocol -left basilar airspace disease Septic Shock Reassessment Septic shock perfusion: reassessment completed Caprini VTE Risk Assessment Caprini VTE Risk Assessment: Mod/High Risk (score >= 2) Caprini Risk Assessment Model Point Value = 1 Point Value = 2 Point Value = 3 Point Value = 5 Age 41-60 Minor surgery BMI > 25 kg/m2 Swollen legs Varicose veins or History of unexplained or recurrent spontaneous Oral contraceptives or hormone replacement Sepsis (< 1 month) Serious lung disease, including pneumonia (< 1 month) Abnormal pulmonary function Acute myocardial infarction Congestive heart failure (< 1 month) History of inflammatory bowel disease Medical patient at bed rest Age 61-74 Arthroscopic surgery Major open surgery (> 45 min) Laparoscopic surgery (> 45 min) Malignancy Confined to bed (> 72 hours) Immobilizing plaster cast Central venous access Age >= 75 History of VTE Family history of VTE Factor V Leiden Prothrombin [id number] Lupus anticoagulant Anticardiolipin antibodies Elevated serum homocysteine Heparin-induced thrombocytopenia Other congenital or acquired thrombophilia Stroke (< 1 month) Elective arthroplasty Hip, pelvis, or leg fracture Acute spinal cord injury (< 1 month) Prophylaxis Regimen Total Risk Factor Score Risk Level Prophylaxis Regimen 0-1 Low Early ambulation 2 Moderate Order ONE of the following: *Sequential Compression Device (SCD) *Heparin 5000 units SQ BID 3-4 Higher Order ONE of the following medications: *Heparin 5000 units SQ TID *Enoxaparin/Lovenox 40 mg SQ daily (WT < 150 kg, CrCl > 30 mL/min) *Enoxaparin/Lovenox 30 mg SQ daily (WT < 150 kg, CrCl > 10-29 mL/min) *Enoxaparin/Lovenox 30 mg SQ BID (WT < 150 kg, CrCl > 30 mL/min) AND/OR *Sequential Compression Device (SCD) 5 or more Highest Order ONE of the following medications: *Heparin 5000 units SQ TID (Preferred with Epidurals) *Enoxaparin/Lovenox 40 mg SQ daily (WT < 150 kg, CrCl > 30 mL/min) *Enoxaparin/Lovenox 30 mg SQ daily (WT < 150 kg, CrCl > 10-29 mL/min) *Enoxaparin/Lovenox 30 mg SQ BID (WT < 150 kg, CrCl > 30 mL/min) AND *Sequential Compression Device (SCD) Assessment and Plan Assessment and Plan Assessment and Plan NEURO: Dementia Acute metabolic encephalopathy Propofol for sedation and ventilator synchrony, RASS -2 Hold Donepezil Daily sedation vacation starting in 24 hour RESP: Acute hypoxemic respiratory failure Recurrent aspiration pneumonia PRVC, Vent bundle DuoNeb every 6 hours and as needed Sputum culture abx per below CV: Lactic acidosis Hyperlipidemia Monitor hemodynamics. Not requiring pressors. 3 L normal saline bolus and continue maintenance fluid at 84 mL/h Trend lactic acid Continue aspirin 81 mg daily. Hold simvastatin GI: OG tube in place and start tube feeds in 24 hours Bowel regimen IV famotidine for GI prophylaxis FEN/RENAL: Acute kidney insufficiency BPH Aleman in place. Monitor intake and output. Monitor electrolytes. Replace as indicated per ICU electrolyte replacement protocol. ID: Aspiration pneumonia Urinary tract infection Severe sepsis Follow-up on blood sputum and urine culture Received 1 dose of vancomycin and Zosyn in the ED, continue Zosyn 4.5 g IV every 6 hours HEME: Monitor CBC ENDO: Electrolyte replacement per protocol PROPH: Lovenox subcu for DVT prophylaxis. Famotidine for stress ulcer prophylaxis. ACCESS: Use peripheral IV CCT 45 MIN Patient is critically ill with acute hypoxemic respiratory failure, aspiration pneumonia severe sepsis and severe lactic acidosis. Patient needs continued ventilator support broad-spectrum antibiotic and fluid resuscitation. Code Status Full Discussed Condition With Dr. Haile Problem Qualifiers (1) Aspiration pneumonia: (2) UTI (urinary tract infection): (3) Hyperlipidemia: Qualified Codes: E78.5 - Hyperlipidemia, unspecified Wilmar Montiel MD Nov 13, 2017 14:39
[2017-11-13] MEDS: CHLORHEXIDINE 0.12% (ORAL KIT) 15 ML CUP MT SCH ×2 (18:17→19:49)
[2017-11-13] MEDS: ENOXAPARIN SODIUM 40 MG/0.4 ML SYRINGE SQ SCH (18:20)
[2017-11-13] MEDS: FAMOTIDINE 20 MG/2 ML VIAL IV PUSH SCH ×2 (18:20→21:52)
--- NOTE | 2017-11-13 20:12 | EKG ---
Date Performed: 11/13/2017 Time Performed: 07:57:45 PTAGE: 77 years EKG: SINUS TACHYCARDIA POSSIBLE LEFT ATRIAL ENLARGEMENT ST DEVIATION AND MODERATE T-WAVE ABNORMA LITY, CONSIDER INFERIOR ISCHEMIA ABNORMAL ECG NO PREVIOUS TRACING DOCTOR: Escobar Beltran Interpretating Date/Time 11/13/2017 20:12:02
[2017-11-14] VITALS (17 sets, daily range): BP systolic 110–157; BP diastolic 58–69; PULSE 64–103; RESP 15–19; TEMP 97.3–98.7; O2SAT 92–100
[2017-11-14] MEDS: PIPERACIL-TAZO 3.375 GM PREMIX 50 ML IV SCH ×4 (00:56→17:49)
[2017-11-14] MEDS: SODIUM CHLOR 0.9% 1000 ML INJ 1,000 ML IV SCH ×3 (00:58→17:01)
[2017-11-14] MEDS: RESP: ALBUTEROL 2.5 MG/IPRATROPIUM 0.5 MG NEB (SCH) INH ×4 (03:33→21:57)
[2017-11-14] MEDS: CHLORHEXIDINE GLUCONATE 2 % 1 PACK (2 CLOTHS) TOP SCH (03:35)
--- NOTE | 2017-11-14 06:19 | RADRPT ---
EXAM DATE/TIME: 11/14/2017 04:19 [place] COMPARISON: CHEST SINGLE AP, November 13, 2017, 6:49. INDICATIONS : Shortness of breath, possible pulmonary disease. MEDICAL HISTORY : None. SURGICAL HISTORY : None. ENCOUNTER: Subsequent ACUITY: 2 days PAIN SCORE: Non-responsive. LOCATION: Bilateral chest FINDINGS: ET tube tip well above the jay. The side port of the gastric tube is 2.9 cm above diaphragm. The lungs are symmetrically aerated and clear. Both hemidiaphragms well delineated. The heart is thaddeus l size. CONCLUSION: 1. The lungs are clear. 2. Side port of the gastric tube is above the diaphragm and needs to be advanced at least 3 cm. Karthik Huston MD on November 14, 2017 at 6:17 Board Certified Radiologist. This report was verified electronically.
[2017-11-14 06:24] LABS: AUTOMATED NEUTROPHIL # 13.5 TH/MM3 (1.8-7.7); BASOPHIL # 0.1 TH/MM3 (0-0.2); BASOPHIL % 0.4 % (0.0-2.0); EOSINOPHIL # 0.1 TH/MM3 (0-0.4); EOSINOPHIL % 0.6 % (0.0-4.0); HEMATOCRIT 34.8 % (39.0-51.0); HEMOGLOBIN 11.3 GM/DL (13.0-17.0); INTERNATIONAL NORMALIZED RATIO 1.2 RATIO; LYMPHOCYTE # 1.2 TH/MM3 (1.0-4.8); MEAN CELL VOLUME 97.3 FL (80.0-100.0); MEAN CORPUSCULAR HEMOGLOBIN 31.6 PG (27.0-34.0); MEAN CORPUSCULAR HGB CONC 32.5 % (32.0-36.0); MEAN PLATELET VOLUME 8.4 FL (7.0-11.0); MONOCYTE # 0.6 TH/MM3 (0-0.9); PLATELET COUNT 136 TH/MM3 (150-450); RED BLOOD COUNT 3.58 MIL/MM3 (4.50-5.90); RED CELL DISTRIBUTION WIDTH 14.8 % (11.6-17.2); WHITE BLOOD COUNT 15.5 TH/MM3 (4.0-11.0)
[2017-11-14 06:57] LABS: ALBUMIN 2.5 GM/DL (3.4-5.0); ALKALINE PHOSPHATASE 64 U/L (45-117); ALT (GPT) 27 U/L (12-78); AST (GOT) 35 U/L (15-37); BICARBONATE 18.2 MEQ/L (21.0-32.0); BLOOD UREA NITROGEN 24 MG/DL (7-18); CHLORIDE 116 MEQ/L (98-107); CREATININE 0.89 MG/DL (0.60-1.30); GLOMERULAR FILTRATION RATE 83 ML/MIN (>89); GLUCOSE,RANDOM 57 MG/DL (74-106); SODIUM (NA) 146 MEQ/L (136-145); TOTAL BILIRUBIN ADULT 0.5 MG/DL (0.2-1.0); TOTAL PROTEIN 6.3 GM/DL (6.4-8.2)
[2017-11-14 07:22] LABS: BANDS 15 % (0-6); LYMPHOCYTES 8 % (9-44); MONOCYTES 6 % (0-8); NEUTROPHIL # MANUAL DIFF 13.3 TH/MM3 (1.8-7.7); POLYS (SEG NEUTROPHILS) 71 % (16-70); TOXIC GRANULATION 1+ (NORMAL)
[2017-11-14] MEDS: ENOXAPARIN SODIUM 40 MG/0.4 ML SYRINGE SQ SCH ×3 (08:00→09:28)
[2017-11-14] MEDS: SODIUM CHLORIDE 0.9% FLUSH 10 ML FLUSH IV FLUSH SCH ×2 (09:12→21:44)
[2017-11-14] MEDS: ASPIRIN 81 MG CHEW TAB CHEW SCH (09:12)
[2017-11-14] MEDS: FAMOTIDINE 20 MG/2 ML VIAL IV PUSH SCH ×2 (09:13→21:44)
[2017-11-14] MEDS: CHLORHEXIDINE 0.12% (ORAL KIT) 15 ML CUP MT SCH ×2 (09:14→21:44)
[2017-11-14] MEDS ORDERED: SODIUM PHOSPHATE INJ 30 MMOL in SODIUM CHLOR 0.9% 250 ML INJ 240 ML IV PRN (09:45)
[2017-11-14] MEDS ORDERED: POTASSIUM PHOSPHATE MONOBASIC 500 MG TAB PO PRN (09:45)
[2017-11-14] MEDS ORDERED: POTASSIUM CHLOR 40 MEQ PREMIX 100 ML IV PRN ×2 (09:45)
[2017-11-14] MEDS ORDERED: MAGNESIUM SULFATE INJ 4 GM in SODIUM CHLORIDE 0.9% INJ 92 ML IV PRN (09:45)
[2017-11-14] MEDS ORDERED: POTASSIUM PHOSPHATE INJ 30 MMOL in SODIUM CHLOR 0.9% 250 ML INJ 250 ML IV PRN (09:45)
[2017-11-14] MEDS ORDERED: POTASSIUM CHLOR 20 MEQ PREMIX 100 ML IV PRN (09:45)
[2017-11-14] MEDS ORDERED: MAGNESIUM SULFATE INJ 2 GM in SODIUM CHLORIDE 0.9% INJ 96 ML IV PRN (09:45)
[2017-11-14] MEDS ORDERED: POTASSIUM CHLORIDE 25 MEQ EFFERVESCENT TAB PO PRN (09:45)
[2017-11-14] MEDS ORDERED: POTASSIUM PHOSPHATE MONOBASIC 500 MG TAB PO/TUBE PRN (09:45)
[2017-11-14] MEDS ORDERED: MAGNESIUM OXIDE 400 MG TAB PO PRN (09:45)
--- NOTE | 2017-11-14 09:47 | HHI.CCPN ---
Subjective Remarks/Hospital Course Patient is a 77-year-old male with past medical history significant for recurrent aspiration pneumonia, advanced dementia who was brought in by EMS from senior living due to severe acute shortness of breath and severe hypoxemia. Patient was admitted to [facility] from October 18 - October 31, 2017 for hypoxemic respiratory failure from aspiration pneumonia. Patient was discharged to senior living and [place] [facility] [place] [facility], and was just discharged from senior living yesterday. Int the NH, EMS noted O2 saturations of 64% on nasal cannula O2. The patient was placed on a nonrebreather mask and his saturations only went up to the mid 70s, then was bagged and brought to [place]. Intubated in the ED by Dr. Haile. CXR did not show any acute infiltrate, CT pulmonary angiogram did not show a PE but showed left lower lobe airspace disease. Patient received a dose of vancomycin and Zosyn in the ED. I evaluated the patient in the ICU. Patient received 1 L fluid bolus in the ED. Lactic acid came back at 5.3 and additional 2L NS ordered. We will place on Zosyn 4.5 g IV every 6 hours. UA shows also evidence of UTI. I discussed with and explained to her in detail swallow evaluation for aspiration is warranted after extubation, patient is at high risk of recurrent aspiration due to advanced dementia SUBJ 11/14: Remains intubated heavily sedated. On propofol do not follow commands. BUN creat improving. Lactic acid pending Objective Vital Signs Date Time Temp Pulse Resp B/P (MAP) Pulse Ox O2 Delivery O2 Flow Rate FiO2 11/14/17 09:12 35 11/14/17 08:02 100 11/14/17 06:00 71 11/14/17 04:00 98.5 16 126/60 (82) 11/13/17 09:06 Ventilator Intake and Output 11/14/17 11/14/17 11/15/17 08:00 16:00 00:00 Output Total 325 ml Balance -325 ml Result Diagram: 11/14/17 0510 11/14/[address] PE protocol -left basilar airspace disease Objective Remarks General: Patient is a cachectic elderly male who is intubated sedated with propofol Head: is normocephalic atraumatic. Eyes: Pupils are 2 mm equal ENT: Oral cavity is dry airway patent Neck: supple CVC: Sinus tachycardia without murmurs, gallops, or rubs. Lungs: Decreased breath sounds in bilateral lung bases, no wheezes or crackles Abdomen: Soft, without tenderness to palpation. No guarding, rebound, or rigidity. Extremities: No clubbing, cyanosis, or edema. 2+ pulses in all 4 extremities. Neuro: Intubated heavily sedated. Withdraws all extremities to pain. Did not open his eyes or follow commands well on propofol A/P Assessment and Plan Assessment and Plan NEURO: Acute metabolic encephalopathy Dementia Propofol for sedation and ventilator synchrony, RASS -2 Hold Donepezil Daily sedation vacation RESP: Acute hypoxemic respiratory failure Recurrent aspiration pneumonia PRVC, Vent bundle Start CPAP trial today DuoNeb every 6 hours and as needed Sputum culture abx per below CV: Lactic acidosis Hyperlipidemia Monitor hemodynamics. Not requiring pressors. s/p 3 L normal saline bolus and continue maintenance fluid at 125 mL/h Trend lactic acid Continue aspirin 81 mg daily. Holding simvastatin GI: OG tube in place and start tube feeds, if not extubated today Bowel regimen IV famotidine for GI prophylaxis Need swallow eval/?MBS after extubation FEN/RENAL: Acute kidney insufficiency BPH Aleman in place. Monitor intake and output. Monitor electrolytes. Replace as indicated per ICU electrolyte replacement protocol. ID: Aspiration pneumonia Urinary tract infection Severe sepsis Follow-up on blood sputum and urine culture Received 1 dose of vancomycin and Zosyn in the ED, continue Zosyn 4.5 g IV every 6 hours HEME: Monitor CBC ENDO: Electrolyte replacement per protocol PROPH: Lovenox subcu for DVT prophylaxis. Famotidine for stress ulcer prophylaxis. ACCESS: Use peripheral IV CCT 32 MIN Patient is critically ill with acute hypoxemic respiratory failure, aspiration pneumonia severe sepsis and lactic acidosis. Patient is stabilizing but still requiring full ventilatory support and fluid resuscitation. Wilmar Montiel MD Nov 14, 2017 09:47
[2017-11-15] VITALS (14 sets, daily range): BP systolic 149–159; BP diastolic 65–75; PULSE 66–94; RESP 15–23; TEMP 97.3–99.3; O2SAT 77–100
[2017-11-15] MEDS: SODIUM CHLOR 0.9% 1000 ML INJ 1,000 ML IV SCH (02:03)
[2017-11-15] MEDS: PIPERACIL-TAZO 3.375 GM PREMIX 50 ML IV SCH ×4 (02:03→17:16)
[2017-11-15] MEDS ORDERED: FUROSEMIDE 20 MG/2 ML VIAL IV PUSH ONE (02:30)
[2017-11-15] MEDS: CHLORHEXIDINE GLUCONATE 2 % 1 PACK (2 CLOTHS) TOP SCH (02:59)
[2017-11-15] MEDS: RESP: ALBUTEROL 2.5 MG/IPRATROPIUM 0.5 MG NEB (SCH) INH ×4 (03:31→19:49)
[2017-11-15] MEDS: CHLORHEXIDINE 0.12% (ORAL KIT) 15 ML CUP MT SCH ×2 (08:00→21:35)
[2017-11-15] MEDS: ENOXAPARIN SODIUM 40 MG/0.4 ML SYRINGE SQ SCH (08:09)
[2017-11-15] MEDS: FAMOTIDINE 20 MG/2 ML VIAL IV PUSH SCH ×2 (08:09→21:38)
[2017-11-15] MEDS: ASPIRIN 81 MG CHEW TAB CHEW SCH (08:09)
[2017-11-15] MEDS: SODIUM CHLORIDE 0.9% FLUSH 10 ML FLUSH IV FLUSH SCH ×2 (08:09→21:35)
--- NOTE | 2017-11-15 09:09 | HHI.CCPN ---
Subjective Remarks/Hospital Course Patient is a 77-year-old male with past medical history significant for recurrent aspiration pneumonia, advanced dementia who was brought in by EMS from alf due to severe acute shortness of breath and severe hypoxemia. Patient was admitted to [facility] from October 18 - October 31, 2017 for hypoxemic respiratory failure from aspiration pneumonia. Patient was discharged to alf and then got admitted to [facility] per for aspiration pneumonia, and was just discharged from alf yesterday. Int the NH, EMS noted O2 saturations of 64% on nasal cannula O2. The patient was placed on a nonrebreather mask and his saturations only went up to the mid 70s, then was bagged and brought to [place]. Intubated in the ED by Dr. Haile. CXR did not show any acute infiltrate, CT pulmonary angiogram did not show a PE but showed left lower lobe airspace disease. Patient received a dose of vancomycin and Zosyn in the ED. I evaluated the patient in the ICU. Patient received 1 L fluid bolus in the ED. Lactic acid came back at 5.3 and additional 2L NS ordered. We will place on Zosyn 4.5 g IV every 6 hours. UA shows also evidence of UTI. I discussed with and explained to her in detail swallow evaluation for aspiration is warranted after extubation, patient is at high risk of recurrent aspiration due to advanced dementia SUBJ 11/14: Remains intubated heavily sedated. On propofol do not follow commands. BUN creat improving. Lactic acid pending 11/15: Extubated yesterday tolerating well respiratory chao. Moving extremities do not follow commands. Awake but nonverbal. Speech therapy consult requested to evaluate for aspiration, may need modified barium swallow. GI eval, for possible PEG placement if there is evidence of aspiration. Family has stated that they want everything done Objective Vital Signs Date Time Temp Pulse Resp B/P (MAP) Pulse Ox O2 Delivery O2 Flow Rate FiO2 11/15/17 08:03 98 Nasal Cannula 2.00 11/15/17 08:00 84 11/15/17 08:00 98.5 17 159/75 (103) 11/14/17 16:00 35 Intake and Output 11/15/17 11/15/17 11/16/17 08:00 16:00 00:00 Intake Total 1100 ml Output Total 1700 ml Balance -600 ml Result Diagram: 11/14/17 0510 11/14/17 0510 Other Results Microbiology Date/Time Source Procedure Growth Status 11/13/17 07:05 Urine Random Urine Urine Culture - Final NO GROWTH IN 48 HOURS. Complete Laboratory Tests Test 11/14/17 17:22 Blood Gas Puncture Site LT RADIAL Blood Gas Patient Temperature 98.6 Blood Gas HCO3 20 mmol/L (22-26) Blood Gas Base Excess -3.6 mmol/L (-2-2) Blood Gas Oxygen Saturation 97 % (90-100) Arterial Blood pH 7.44 (7.380-7.420) Arterial Blood Partial Pressure CO2 30 mmHg (38-42) Arterial Blood Partial Pressure O2 154 mmHg (61-120) Arterial Blood Oxygen Content 15.2 Vol % (12.0-20.0) Arterial Blood Carboxyhemoglobin 0.8 % (0-4) Arterial Blood Methemoglobin 1.2 % (0-2) Blood Gas Hemoglobin 10.9 G/DL (12.0-16.0) Oxygen Delivery Device VENTILATOR Blood Gas Ventilator Setting PS/CPAP Blood Gas Inspired Oxygen 35 % Imaging CT PE protocol -left basilar airspace disease Objective Remarks General: Patient is a cachectic elderly male who is sitting up in bed no distress Head: is normocephalic atraumatic. Eyes: Pupils are 2 mm equal ENT: Oral cavity is dry airway patent Neck: supple CVS: S1-S2 normal without murmurs without murmurs, gallops, or rubs. Resp: Decreased breath sounds in bilateral lung bases, no wheezes or crackles Abdomen: Soft, without tenderness to palpation. No guarding, rebound, or rigidity. Extremities: No clubbing, cyanosis, or edema. 2+ pulses in all 4 extremities. Neuro: Patient is awake spontaneously opens eyes tracks nonverbal, spontaneously moves extremities do not follow commands. A/P Assessment and Plan Assessment and Plan NEURO: Acute metabolic encephalopathy Dementia Discontinue all continuos sedation Resume Donepezil if cleared for PO intake Daily sedation vacation RESP: Acute hypoxemic respiratory failure Recurrent aspiration pneumonia DuoNeb every 6 hours and as needed Sputum culture neg to date abx per below Will not cooperate with EzPAP or Acapella CV: Lactic acidosis-resolving Hyperlipidemia Monitor hemodynamics. Not requiring pressors. IV fluid discontinued, received IV Lasix yesterday Trend lactic acid Continue aspirin 81 mg daily. Holding simvastatin 2D echo to evaluate for cardiac causes of respiratory failure GI: Strict NPO, speech pathology consult may need modified barium swallow GI consulted for evaluation for PEG tube placement Bowel regimen IV famotidine for GI prophylaxis FEN/RENAL: Acute kidney insufficiency BPH Aleman in place. Monitor intake and output. Monitor electrolytes. Replace as indicated per ICU electrolyte replacement protocol. ID: Aspiration pneumonia Urinary tract infection Sepsis Follow-up on blood sputum and urine culture-negative to date Received 1 dose of vancomycin and Zosyn in the ED, continue Zosyn for approximately 7 days HEME: Monitor CBC ENDO: Electrolyte replacement per protocol PROPH: Lovenox subcu for DVT prophylaxis. Famotidine for stress ulcer prophylaxis. ACCESS: Use peripheral IV Level 3 Patient is extubated improved but need further workup for recurrent aspiration pneumonia. Continue ICU care due to altered mentation high risk of decompensation Wilmar Montiel MD Nov 15, 2017 09:09
[2017-11-15 11:38] LABS: AUTOMATED NEUTROPHIL # 12.3 TH/MM3 (1.8-7.7); BASOPHIL % 0.3 % (0.0-2.0); EOSINOPHIL % 0.1 % (0.0-4.0); HEMATOCRIT 35.6 % (39.0-51.0); HEMOGLOBIN 11.7 GM/DL (13.0-17.0); LYMPH % 4.9 % (9.0-44.0); LYMPHOCYTE # 0.7 TH/MM3 (1.0-4.8); MEAN CELL VOLUME 94.6 FL (80.0-100.0); MEAN CORPUSCULAR HGB CONC 32.8 % (32.0-36.0); MEAN PLATELET VOLUME 7.5 FL (7.0-11.0); MONO % 3.1 % (0.0-8.0); MONOCYTE # 0.4 TH/MM3 (0-0.9); NEUT % 91.6 % (16.0-70.0); PLATELET COUNT 173 TH/MM3 (150-450); RED BLOOD COUNT 3.76 MIL/MM3 (4.50-5.90); RED CELL DISTRIBUTION WIDTH 14.4 % (11.6-17.2); WHITE BLOOD COUNT 13.5 TH/MM3 (4.0-11.0)
[2017-11-15 12:03] LABS: ALBUMIN 2.6 GM/DL (3.4-5.0); ALKALINE PHOSPHATASE 74 U/L (45-117); ALT (GPT) 26 U/L (12-78); AST (GOT) 33 U/L (15-37); BICARBONATE 24.6 MEQ/L (21.0-32.0); BLOOD UREA NITROGEN 15 MG/DL (7-18); CALCIUM 8.3 MG/DL (8.5-10.1); CHLORIDE 109 MEQ/L (98-107); CREATININE 0.89 MG/DL (0.60-1.30); GLOMERULAR FILTRATION RATE 83 ML/MIN (>89); GLUCOSE,RANDOM 97 MG/DL (74-106); MAGNESIUM 2.1 MG/DL (1.5-2.5); SODIUM (NA) 144 MEQ/L (136-145); TOTAL BILIRUBIN ADULT 0.6 MG/DL (0.2-1.0); TOTAL PROTEIN 6.9 GM/DL (6.4-8.2)
--- NOTE | 2017-11-15 13:37 | PD.CONS ---
HPI History of Present Illness This is a 77 year old ronnell osborne admitted on 11/13/2017 with symptoms of significant recurrent aspiration pneumonia per the chest x-ray. Patient was here in the hospital this past month, was discharged to the long-term and readmitted with aspiration pneumonia at [facility]. Once he was stable he was discharged back to the long-term on 11/12/17, but within 24 hours was readmitted to [facility] O2 sat in the 60s and 70s. Patient patient is currently being monitored in the ICU setting, was briefly intubated, but was able to be extubated in the evening of 11/14/17. Currently patient is sitting straight up in the bed at almost 90, nasal trumpet is in place, patient is semi-alert, and family is at his bedside giving most of his history. Patient speaks mostly Tajik, but does say yes or no once a question is asked to him in Tajik. Patient has a history of end-stage dementia and has been seen and followed per the speech therapist last and this admission. Last admission patient was maintained on a pured with thin liquid diet. states that approximately week ago patient was eating a full hamburger with bread and drinking family liquids without any cough. His swallow and eating seems to be a transient thing; there are times that he is coughing a good bit with his liquids, other times when he is more alert he shows no signs of aspiration. Palliative care consult on patient last admission and CODE STATUS was addressed. If PEG tube is an option is interested in having that done but may need more information again on the procedure to comes to that. Currently speech therapist has worked with patient today but due to his decreased alertness and wet vocal quality she was unable to feed. No known EGD or colonoscopy in the recent past according to family. Currently family and nursing staff denies any nausea or vomiting, no diarrhea or constipation, but does have a productive wet cough and is weakly attempting to cough up secretions. When asked if patient had problems with food getting stuck in his esophagus he stated yes. is the next of kin and is the decision maker for this patient. Current hemoglobin 11.7 hematocrit 35.6, WBC count 13.5, INR 1.2. (Kavitha Ballard) PFSH Past Medical History Per the and the record drink of recurrent aspiration pneumonia UTI Advanced dementia Cephalopathy Hyperlipidemia Recent ventilator management GERD BPH Past Surgical History No major (Kavitha Ballard) Coded Allergies: No Known Allergies (Unverified , 10/12/17) Medications Administered Medications Medications (Trade) Dose Ordered Sig/Alan Route PRN Reason Start Time Stop Time Status Last Admin Dose Admin Sodium Chloride (NS Flush) 2 ml BID IV FLUSH 11/13/17 09:00 11/15/17 08:09 Albuterol/ Ipratropium (Duoneb Neb) 1 ampule Q6HR NEB INH 11/13/17 07:45 11/15/17 08:02 Chlorhexidine Gluconate (Peridex 0.12% Liq) 15 ml BID@08,20 MT 11/13/17 08:00 11/14/17 21:44 Famotidine (Pepcid Inj) 20 mg Q12HR IV PUSH 11/13/17 09:00 11/15/17 08:09 Enoxaparin Sodium (Lovenox Inj) 40 mg Q24H SQ 11/13/17 08:00 11/15/17 08:09 Miscellaneous Information 1 Q361D XX 11/13/17 07:00 11/13/17 07:00 Chlorhexidine Gluconate (Chlorhexidine 2% Cloth) 3 pack Taper DAILY@04 TOP 11/14/17 04:00 11/10/18 03:59 11/15/17 02:59 Piperacillin Sod/ Tazobactam Sod 50 ml @ 100 mls/hr Q6H IV 11/13/17 12:00 11/15/17 13:07 Sodium Chloride 1,000 ml @ 999 mls/hr BOLUS IV 11/13/17 12:15 11/13/17 18:22 Aspirin (Aspirin Chew) 81 mg DAILY CHEW 11/14/17 09:00 11/14/17 09:12 Family History Mother gastric cancer Social History no recent alcohol or tobacco or illicit drug use (Kavitha Ballard) Review of Systems Unable to assess Except for possible dysphasia (Kavitha Ballard) GI Exam Vitals I&O Vital Signs Date Time Temp Pulse Resp B/P (MAP) Pulse Ox O2 Delivery O2 Flow Rate FiO2 11/15/17 10:00 66 11/15/17 08:03 98 Nasal Cannula 2.00 11/15/17 08:00 84 11/15/17 08:00 98.5 94 17 159/75 (103) 100 11/15/17 06:00 90 11/15/17 04:00 83 11/15/17 04:00 98.2 83 22 152/65 (94) 100 11/15/17 02:00 88 11/15/17 00:00 91 11/15/17 00:00 97.3 91 23 159/74 (102) 100 11/14/17 22:01 100 Nasal Cannula 2.00 11/14/17 22:00 97 11/14/17 20:00 97.3 93 15 119/64 (82) 100 11/14/17 20:00 93 11/14/17 18:00 103 11/14/17 18:00 89 11/14/17 16:00 98.3 89 19 157/69 (98) 98 11/14/17 16:00 89 11/14/17 16:00 35 11/14/17 16:00 95 35 11/14/17 14:00 77 I/O 11/14/17 11/14/17 11/14/17 11/15/17 11/15/17 11/15/17 07:00 15:00 23:00 07:00 15:00 23:00 Intake Total 200 ml 3543 ml 1100 ml Output Total 325 ml 650 ml 1700 ml Balance -325 ml 200 ml 2893 ml -600 ml Intake IV Total 200 ml 3543 ml 1100 ml Output Urine Total 325 ml 650 ml 1700 ml Stool Total 0 ml # Bowel Movements 0 0 Imaging Last Impressions Chest X-Ray 11/14/17 0600 Signed Impressions: Service Date/Time: October 04:19 - CONCLUSION: 1. The lungs are clear. 2. Side port of the gastric tube is above the diaphragm and needs to be advanced at least [address] Angiography 11/13/17 0000 Signed Impressions: Service Date/Time: Monday, November 13, 2017 09:06 - CONCLUSION: 1. Minimal airspace disease left base without consolidation 2. No significant pleural effusion 3. No central pulmonary emboli Brown Márquez MD FACR Laboratory Test 11/14/17 17:22 11/15/17 11:16 Blood Gas Puncture Site LT RADIAL Blood Gas Patient Temperature 98.6 Blood Gas HCO3 20 mmol/L Blood Gas Base Excess -3.6 mmol/L Blood Gas Oxygen Saturation 97 % Arterial Blood pH 7.44 Arterial Blood Partial Pressure CO2 30 mmHg Arterial Blood Partial Pressure O2 154 mmHg Arterial Blood Oxygen Content 15.2 Vol % Arterial Blood Carboxyhemoglobin 0.8 % Arterial Blood Methemoglobin 1.2 % Blood Gas Hemoglobin 10.9 G/DL Oxygen Delivery Device VENTILATOR Blood Gas Ventilator Setting PS/CPAP Blood Gas Inspired Oxygen 35 % White Blood Count 13.5 TH/MM3 Red Blood Count 3.76 MIL/MM3 Hemoglobin 11.7 GM/DL Hematocrit 35.6 % Mean Corpuscular Volume 94.6 FL Mean Corpuscular Hemoglobin 31.0 PG Mean Corpuscular Hemoglobin Concent 32.8 % Red Cell Distribution Width 14.4 % Platelet Count 173 TH/MM3 Mean Platelet Volume 7.5 FL Neutrophils (%) (Auto) 91.6 % Lymphocytes (%) (Auto) 4.9 % Monocytes (%) (Auto) 3.1 % Eosinophils (%) (Auto) 0.1 % Basophils (%) (Auto) 0.3 % Neutrophils # (Auto) 12.3 TH/MM3 Lymphocytes # (Auto) 0.7 TH/MM3 Monocytes # (Auto) 0.4 TH/MM3 Eosinophils # (Auto) 0.0 TH/MM3 Basophils # (Auto) 0.0 TH/MM3 CBC Comment DIFF FINAL Differential Comment Blood Urea Nitrogen 15 MG/DL Creatinine 0.89 MG/DL Random Glucose 97 MG/DL Total Protein 6.9 GM/DL Albumin 2.6 GM/DL Calcium Level 8.3 MG/DL Magnesium Level 2.1 MG/DL Alkaline Phosphatase 74 U/L Aspartate Amino Transf (AST/SGOT) 33 U/L Alanine Aminotransferase (ALT/SGPT) 26 U/L Total Bilirubin 0.6 MG/DL Sodium Level 144 MEQ/L Potassium Level 3.4 MEQ/L Chloride Level 109 MEQ/L Carbon Dioxide Level 24.6 MEQ/L Anion Gap 10 MEQ/L Estimat Glomerular Filtration Rate 83 ML/MIN Date/Time Source Procedure Growth Status 11/13/17 06:45 Blood Peripheral Aerobic Blood Culture - Preliminary NO GROWTH IN 2 DAYS Resulted 11/13/17 06:45 Blood Peripheral Anaerobic Blood Culture - Preliminary NO GROWTH IN 2 DAYS Resulted 11/13/17 07:00 Sputum Endotracheal Gram Stain - Final Complete 11/13/17 07:00 Sputum Endotracheal Sputum Culture - Final HEAVY GROWTH NORMAL RESPIRATORY PA Complete 11/13/17 07:05 Urine Random Urine Urine Culture - Final NO GROWTH IN 48 HOURS. Complete Physical Examination HEENT: Pupils round and reactive to light 3MM; normocephalic; atraumatic; no jaundice. Nasal trumpet in place, wet coarse cough NECK: Neck is supple, CHEST: Audible rhonchi with cough, diminished breath sounds at the bases CARDIAC: Regular rate and rhythm ABDOMEN: Flat, Soft/taut, nondistended, mild reaction to light palpation; no hepatosplenomegaly; bowel sounds are present in all four quadrants. EXTREMITIES: No clubbing, cyanosis, or edema. SKIN: Thin turgor Normal; no rash; no jaundice. 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 SHERIFF: Drowsy but opens eyes and engages in minimal conversation (Kavitha Ballard) Assessment and Plan Assessment: (1) Dysphagia ICD Codes: R13.10 - Dysphagia, unspecified (2) Decreased oral intake ICD Codes: R63.8 - Other symptoms and signs concerning food and fluid intake (3) GERD (gastroesophageal reflux disease) ICD Codes: K21.9 - Gastro-esophageal reflux disease without esophagitis (4) Dementia ICD Codes: F03.90 - Unspecified dementia without behavioral disturbance (5) Aspiration pneumonia ICD Codes: J69.0 - Pneumonitis due to inhalation of food and vomit Plan Possible dysphagia, she states yes to food getting stuck in his throat but also has advanced dementia, and has had recurrent aspiration pneumonia in the past few months. According to the PEG tube may be an option but understands that he still could have aspiration pneumonia even with a PEG tube. Currently working with speech therapy but unable to do much assessing today due to patient 's drowsiness. Currently nothing by mouth. Anemia without active bleeding. No melena no hematemesis per staff or . No known EGD or colonoscopy recent Mild leukocytosis could be secondary to aspiration pneumonia Advanced dementia probable primary calls to swallow issues causing aspiration recurrent. Patient is now extubated with nasal trumpet, with encouragement to cough secretions and deep breathe Plan Diet nothing by mouth for now We'll follow STDs guidance on feedings and swallow. Modified barium swallow and patient is alert and can participate Consider EGD Bowel regimen as needed PPI IV secondary to GERD Monitor for any acute bleeding or hemorrhage Monitor labs Further recommendations will be based on patient's symptoms and response to treatment Consider PEG tube next week This patient was seen per myself and Dr. Paulson, note written on her behalf (Kavitha Ballard) Physician Comments seen, examined agree with above consider g/j tube if family agrees with feeding tube insertion (Renetta Paulson MD) Problem Qualifiers (1) Aspiration pneumonia: Kavitha Ballard Nov 15, 2017 13:37 Renetta Paulson MD Nov 15, 2017 21:09
[2017-11-15] MEDS: POTASSIUM CHLOR 20 MEQ PREMIX 100 ML IV PRN (17:24)
--- NOTE | 2017-11-15 19:52 | ECHRPT ---
Indication: SHORTNESS OF BREATH CONCLUSIONS Technically difficult study In limited views, the left ventricular systolic function is low normal with an estimated ejection fr action in the range of 50-55%. Trace mitral valve regurgitation. There is trace tricuspid valve regurgitation. BP: 159 / 75 HR: 66 Rhythm: Sinus MEASUREMENTS (Male / Female) Normal Values Technical Quality:Technically difficult study 2D ECHO LV Diastolic Diameter PLAX 4.9 cm 4.2 - 5.9 / 3.9 - 5.3 cm LV Systolic Diameter PLAX 3.9 cm IVS Diastolic Thickness 0.6 cm 0.6 - 1.0 / 0.6 - 0.9 cm LVPW Diastolic Thickness 0.6 cm 0.6 - 1.0 / 0.6 - 0.9 cm LV Relative Wall Thickness 0.3 RV Internal Dim ED PLAX 1.8 cm LVOT Diameter 2.0 cm Aortic Root Diameter 2.9 cm LA Systolic Diameter LX 2.7 cm 3.0 - 4.0 / 2.7 - 3.8 cm M-MODE AV Cusp Separation MM 1.8 cm DOPPLER AV Peak Velocity 103.0 cm/s AV Peak Gradient 4.2 mmHg AV Mean Gradient 2.0 mmHg AV Velocity Time Integral 20.1 cm LVOT Peak Velocity 79.7 cm/s LVOT Peak Gradient 2.5 mmHg LVOT Velocity Time Integral 13.8 cm AV Area Cont Eq vti 2.2 cm AV Area Cont Eq pk 2.4 cm Mitral E Point Velocity 85.9 cm/s Mitral A Point Velocity 96.7 cm/s Mitral E to A Ratio 0.9 LV E' Lateral Velocity 12.1 cm/s Mitral E to LV E' Lateral Ratio 7.1 LV E' Septal Velocity 12.1 cm/s Mitral E to LV E' Septal Ratio 7.1 TR Peak Velocity 279.0 cm/s TR Peak Gradient 31.1 mmHg Right Atrial Pressure 10.0 mmHg Pulmonary Artery Systolic Pressu 41.1 mmHg Right Ventricular Systolic Press 41.1 mmHg PV Peak Velocity 59.4 cm/s PV Peak Gradient 1.4 mmHg FINDINGS LEFT VENTRICLE Normal left ventricular size. Wall thickness is normal. In limited views, the left ventricular systolic function is low normal with an estimated ejection fr action in the range of 50-55%. RIGHT VENTRICLE Normal right ventricular size and systolic function. LEFT ATRIUM The left atrial size is normal. RIGHT ATRIUM The right atrial size is normal. ATRIAL SEPTUM Normal atrial septal thickness. AORTA The aortic root and proximal ascending aorta are normal in size on limited imaging. MITRAL VALVE Structurally normal mitral valve. No mitral valve stenosis. Trace mitral valve regurgitation. AORTIC VALVE Grossly normal aortic valve. No aortic valve stenosis or regurgitation. TRICUSPID VALVE Grossly normal tricuspid valve. There is trace tricuspid valve regurgitation. The estimated pulmonary arterial pressure is 41.1 mmHg. PULMONARY VALVE The pulmonary valve is not well visualized. VESSELS The inferior vena cava was not well visualized. PERICARDIUM No pericardial effusion. Siva Escoto DO (Electronically Signed) Final Date:15 November 2017 19:52
[2017-11-16] VITALS (14 sets, daily range): BP systolic 147–166; BP diastolic 67–84; PULSE 62–85; RESP 16–20; TEMP 97.6–98.6; O2SAT 80–100
[2017-11-16] MEDS: PIPERACIL-TAZO 3.375 GM PREMIX 50 ML IV SCH ×2 (00:16→05:02)
[2017-11-16] MEDS: RESP: ALBUTEROL 2.5 MG/IPRATROPIUM 0.5 MG NEB (SCH) INH ×4 (03:50→21:33)
[2017-11-16] MEDS: CHLORHEXIDINE GLUCONATE 2 % 1 PACK (2 CLOTHS) TOP SCH (04:00)
--- NOTE | 2017-11-16 04:36 | RADRPT ---
EXAM DATE/TIME: 11/16/2017 03:34 [facility] COMPARISON: CHEST SINGLE AP, November 14, 2017, 4:19. INDICATIONS : Shortness of breath, followup infiltrates. Status post extubation... MEDICAL HISTORY : None. SURGICAL HISTORY : None. ENCOUNTER: Subsequent ACUITY: 4 - 6 days PAIN SCORE: Non-responsive. LOCATION: Bilateral chest FINDINGS: A single AP semierect view the chest was obtained and demonstrates that the patient has been extubate d and the nasogastric tube has been removed. Mild patchy perihilar and bibasilar opacities are presen t appear mildly increased from the prior study. The heart size remains at the upper limits of normal. Atherosclerotic changes are present in the aorta. There is no effusion. The bony thorax remains inta ct with multiple overlying electrocardiogram leads. CONCLUSION: 1. Status post extubation and removal of nasogastric tube. 2. Mild patchy perihilar and bibasilar opacities which appear slightly increased from the prior study . Shar Pandey MD on November 16, 2017 at 4:32 Board Certified Radiologist. This report was verified electronically.
[2017-11-16] MEDS: CHLORHEXIDINE 0.12% (ORAL KIT) 15 ML CUP MT SCH ×2 (08:00→20:00)
--- NOTE | 2017-11-16 08:27 | HHI.CCPN ---
Subjective Remarks/Hospital Course Patient is a 77-year-old male with past medical history significant for recurrent aspiration pneumonia, advanced dementia who was brought in by EMS from [facility] due to severe acute shortness of breath and severe hypoxemia. Patient was admitted to [facility] from October 18 - October 31, 2017 for hypoxemic respiratory failure from aspiration pneumonia. Patient was discharged to [facility] and then got admitted to [facility] per for aspiration pneumonia, and was just discharged from [facility] yesterday. Int the NH, EMS noted O2 saturations of 64% on nasal cannula O2. The patient was placed on a nonrebreather mask and his saturations only went up to the mid 70s, then was bagged and brought to [place]. Intubated in the ED by Dr. Haile. CXR did not show any acute infiltrate, CT pulmonary angiogram did not show a PE but showed left lower lobe airspace disease. Patient received a dose of vancomycin and Zosyn in the ED. I evaluated the patient in the ICU. Patient received 1 L fluid bolus in the ED. Lactic acid came back at 5.3 and additional 2L NS ordered. We will place on Zosyn 4.5 g IV every 6 hours. UA shows also evidence of UTI. I discussed with and explained to her in detail swallow evaluation for aspiration is warranted after extubation, patient is at high risk of recurrent aspiration due to advanced dementia SUBJ 11/14: Remains intubated heavily sedated. On propofol do not follow commands. BUN creat improving. Lactic acid pending 11/15: Extubated yesterday tolerating well respiratory chao. Moving extremities do not follow commands. Awake but nonverbal. Speech therapy consult requested to evaluate for aspiration, may need modified barium swallow. GI eval, for possible PEG placement if there is evidence of aspiration. Family has stated that they want everything done 11/16: remains extubated. nasal trumpet still in place. awake. nonverbal. NPO per speech therapy. G/J recommended by GI on Saturday. Objective Vital Signs Date Time Temp Pulse Resp B/P (MAP) Pulse Ox O2 Delivery O2 Flow Rate FiO2 11/16/17 06:00 78 11/16/17 04:00 98.6 16 152/84 (106) 100 11/15/17 19:49 Nasal Cannula 4.00 11/14/17 16:00 35 Intake and Output 11/16/17 11/16/17 11/17/17 08:00 16:00 00:00 Output Total 850 ml Balance -850 ml Result Diagram: 11/15/17 1116 11/15/[address] PE protocol -left basilar airspace disease Objective Remarks General: Patient is a cachectic elderly male who is lying in bed. Head: is normocephalic atraumatic. Eyes: Pupils are 2 mm equal ENT: Oral cavity is dry airway patent. nasal trumpet in place Neck: supple CVS: tachycardic rate, regular rhythm. sinus by tele. Resp: Decreased breath sounds in bilateral lung bases. equal chest rise. Abdomen: Soft, without tenderness to palpation. No guarding, rebound, or rigidity. Extremities: No clubbing, cyanosis, or edema. 2+ pulses in all 4 extremities. Neuro: Patient is awake spontaneously opens eyes tracks nonverbal, spontaneously moves extremities do not follow commands. A/P Assessment and Plan Assessment: 77yM with severe dementia and multiple recent hospitalizations. overall clinical course is one of severe functional and medical decline over past 2 months. Unlikely to have good long-term prognosis and likely this is the start of his dying process. Family continues to press towards aggressive goals of care. will need long-term G/J tube and if he fails extubation will require tracheostomy. Assessment and Plan NEURO: Acute metabolic encephalopathy Dementia Discontinue all continuos sedation Resume Donepezil once enteral access obtained. RESP: Acute hypoxemic respiratory failure- resolving. Recurrent aspiration pneumonia DuoNeb every 6 hours and as needed Sputum culture neg to date abx per below Will not cooperate with EzPAP or Acapella CV: Lactic acidosis-resolving Hyperlipidemia Monitor hemodynamics. Not requiring pressors. IV fluid discontinued Trend lactic acid Continue aspirin 81 mg daily. Holding simvastatin GI: Strict NPO GI consulted for evaluation for GJ tube placement Bowel regimen IV famotidine for GI prophylaxis FEN/RENAL: Acute kidney insufficiency - resolving BPH Concepcion in place. Monitor electrolytes. Replace as indicated per ICU electrolyte replacement protocol. d/c concepcion. condom cath if needed. ID: Aspiration pneumonia Urinary tract infection Sepsis Follow-up on blood sputum and urine culture-negative to date Received 1 dose of vancomycin and Zosyn in the ED, transition to Unasyn today ( cultures NGTD x 48h.): plan for full 7 day course (anticipated stop date 11/19) HEME: Monitor CBC ENDO: Electrolyte replacement per protocol PROPH: Lovenox subcu for DVT prophylaxis. Famotidine for stress ulcer prophylaxis. ACCESS: Use peripheral IV Patient is extubated improved but need further workup for recurrent aspiration pneumonia. Continue ICU care due to altered mentation high risk of decompensation Eric Santana MD Nov 16, 2017 08:27
[2017-11-16] MEDS: AMPICILLIN-SULBACTAM INJ 3 GM in SODIUM CHLORIDE 0.9% INJ 100 ML IV SCH ×3 (08:54→21:06)
[2017-11-16] MEDS: FAMOTIDINE 20 MG TAB NG SCH ×3 (08:56→21:00)
[2017-11-16] MEDS: METOPROLOL TARTRATE 5 MG/5 ML VIAL IV PUSH SCH ×4 (08:56→21:00)
[2017-11-16] MEDS: ENOXAPARIN SODIUM 40 MG/0.4 ML SYRINGE SQ SCH (08:56)
[2017-11-16] MEDS: ASPIRIN 81 MG CHEW TAB CHEW SCH ×2 (08:56→09:00)
[2017-11-16] MEDS: SODIUM CHLORIDE 0.9% FLUSH 10 ML FLUSH IV FLUSH SCH ×2 (08:57→21:06)
[2017-11-16 10:58] LABS: AUTOMATED NEUTROPHIL # 8.9 TH/MM3 (1.8-7.7); BASOPHIL % 0.4 % (0.0-2.0); EOSINOPHIL % 0.4 % (0.0-4.0); HEMATOCRIT 32.6 % (39.0-51.0); HEMOGLOBIN 10.9 GM/DL (13.0-17.0); LYMPH % 5.6 % (9.0-44.0); LYMPHOCYTE # 0.6 TH/MM3 (1.0-4.8); MEAN CELL VOLUME 94.6 FL (80.0-100.0); MEAN CORPUSCULAR HEMOGLOBIN 31.5 PG (27.0-34.0); MEAN CORPUSCULAR HGB CONC 33.3 % (32.0-36.0); MEAN PLATELET VOLUME 7.5 FL (7.0-11.0); MONO % 3.5 % (0.0-8.0); MONOCYTE # 0.3 TH/MM3 (0-0.9); NEUT % 90.1 % (16.0-70.0); PLATELET COUNT 172 TH/MM3 (150-450); RED BLOOD COUNT 3.45 MIL/MM3 (4.50-5.90); RED CELL DISTRIBUTION WIDTH 13.7 % (11.6-17.2); WHITE BLOOD COUNT 9.9 TH/MM3 (4.0-11.0)
[2017-11-16 11:10] LABS: ALBUMIN 2.4 GM/DL (3.4-5.0); AST (GOT) 26 U/L (15-37); BICARBONATE 22.6 MEQ/L (21.0-32.0); BLOOD UREA NITROGEN 15 MG/DL (7-18); CALCIUM 8.4 MG/DL (8.5-10.1); CHLORIDE 108 MEQ/L (98-107); CREATININE 0.63 MG/DL (0.60-1.30); GLOMERULAR FILTRATION RATE 124 ML/MIN (>89); GLUCOSE,RANDOM 80 MG/DL (74-106); SODIUM (NA) 142 MEQ/L (136-145)
[2017-11-16 11:11] LABS: ALT (GPT) 22 U/L (12-78)
[2017-11-16 11:13] LABS: ALKALINE PHOSPHATASE 67 U/L (45-117); TOTAL BILIRUBIN ADULT 0.5 MG/DL (0.2-1.0); TOTAL PROTEIN 6.6 GM/DL (6.4-8.2)
[2017-11-17] VITALS (15 sets, daily range): BP systolic 154–196; BP diastolic 66–89; PULSE 50–76; RESP 17–22; TEMP 98.5–99; O2SAT 97–100
[2017-11-17] MEDS: METOPROLOL TARTRATE 5 MG/5 ML VIAL IV PUSH SCH ×6 (00:31→20:38)
[2017-11-17] MEDS: CHLORHEXIDINE GLUCONATE 2 % 1 PACK (2 CLOTHS) TOP SCH (03:07)
[2017-11-17] MEDS: AMPICILLIN-SULBACTAM INJ 3 GM in SODIUM CHLORIDE 0.9% INJ 100 ML IV SCH ×4 (03:07→20:39)
[2017-11-17] MEDS: RESP: ALBUTEROL 2.5 MG/IPRATROPIUM 0.5 MG NEB (SCH) INH ×4 (03:40→21:01)
[2017-11-17 06:56] LABS: HEMATOCRIT 33.4 % (39.0-51.0); HEMOGLOBIN 11.4 GM/DL (13.0-17.0); MEAN CELL VOLUME 93.1 FL (80.0-100.0); MEAN CORPUSCULAR HEMOGLOBIN 31.7 PG (27.0-34.0); MEAN PLATELET VOLUME 8.1 FL (7.0-11.0); PLATELET COUNT 173 TH/MM3 (150-450); RED BLOOD COUNT 3.59 MIL/MM3 (4.50-5.90); RED CELL DISTRIBUTION WIDTH 13.7 % (11.6-17.2); WHITE BLOOD COUNT 8.9 TH/MM3 (4.0-11.0)
[2017-11-17 06:59] LABS: BICARBONATE 25.4 MEQ/L (21.0-32.0); CALCIUM 8.1 MG/DL (8.5-10.1); CREATININE 0.47 MG/DL (0.60-1.30)
[2017-11-17] MEDS: CHLORHEXIDINE 0.12% (ORAL KIT) 15 ML CUP MT SCH ×2 (08:00→20:00)
[2017-11-17] MEDS: ASPIRIN 81 MG CHEW TAB CHEW SCH (08:20)
[2017-11-17] MEDS: ENOXAPARIN SODIUM 40 MG/0.4 ML SYRINGE SQ SCH (08:20)
[2017-11-17] MEDS: SODIUM CHLORIDE 0.9% FLUSH 10 ML FLUSH IV FLUSH SCH ×2 (08:21→20:38)
[2017-11-17] MEDS: FAMOTIDINE 20 MG TAB NG SCH ×2 (08:21→20:39)
[2017-11-17] MEDS: POTASSIUM CHLOR 20 MEQ PREMIX 100 ML IV PRN ×2 (08:36→10:43)
--- NOTE | 2017-11-17 10:01 | HHI.GIFU ---
Subjective Remarks Pt resting in bed Lethargic, does not awaken during my exam Soft wrist restraints Remains NPO (Anabell Linares) Objective Vitals I&O Vital Signs Date Time Temp Pulse Resp B/P (MAP) Pulse Ox O2 Delivery O2 Flow Rate FiO2 11/17/17 07:38 100 Nasal Cannula 4.00 11/17/17 06:00 57 11/17/17 04:00 99.0 57 17 163/72 (102) 99 11/17/17 04:00 57 11/17/17 02:00 50 11/17/17 00:00 62 11/17/17 00:00 98.8 62 20 160/70 (100) 97 11/16/17 22:00 74 11/16/17 21:34 100 Nasal Cannula 4.00 11/16/17 20:00 85 11/16/17 20:00 98.5 85 18 165/72 (103) 80 11/16/17 18:00 67 11/16/17 16:00 98.3 67 20 156/67 (96) 96 11/16/17 16:00 77 11/16/17 14:00 62 11/16/17 12:00 71 11/16/17 12:00 98.4 76 18 166/74 (104) 100 11/16/17 10:00 66 I/O 11/16/17 11/16/17 11/16/17 11/17/17 11/17/17 11/17/17 07:00 15:00 23:00 07:00 15:00 23:00 Intake Total 100 ml 100 ml Output Total 850 ml 1000 ml 1050 ml Balance -850 ml -900 ml -950 ml Intake Oral 0 ml IV Total 100 ml 100 ml Output Urine Total 850 ml 1000 ml 1050 ml Stool Total 0 ml # Bowel Movements 0 1 0 Laboratory Laboratory Tests Test 11/16/17 10:33 11/17/17 05:15 White Blood Count 9.9 8.9 Red Blood Count 3.45 3.59 Hemoglobin 10.9 11.4 Hematocrit 32.6 33.4 Mean Corpuscular Volume 94.6 93.1 Mean Corpuscular Hemoglobin 31.5 31.7 Mean Corpuscular Hemoglobin Concent 33.3 34.0 Red Cell Distribution Width 13.7 13.7 Platelet Count 172 173 Mean Platelet Volume 7.5 8.1 Neutrophils (%) (Auto) 90.1 Lymphocytes (%) (Auto) 5.6 Monocytes (%) (Auto) 3.5 Eosinophils (%) (Auto) 0.4 Basophils (%) (Auto) 0.4 Neutrophils # (Auto) 8.9 Lymphocytes # (Auto) 0.6 Monocytes # (Auto) 0.3 Eosinophils # (Auto) 0.0 Basophils # (Auto) 0.0 CBC Comment DIFF FINAL Differential Comment Blood Urea Nitrogen 15 14 Creatinine 0.63 0.47 Random Glucose 80 68 Total Protein 6.6 Albumin 2.4 Calcium Level 8.4 8.1 Alkaline Phosphatase 67 Aspartate Amino Transf (AST/SGOT) 26 Alanine Aminotransferase (ALT/SGPT) 22 Total Bilirubin 0.5 Sodium Level 142 140 Potassium Level 3.3 3.3 Chloride Level 108 103 Carbon Dioxide Level 22.6 25.4 Anion Gap 11 12 Estimat Glomerular Filtration Rate 124 174 Date/Time Source Procedure Growth Status 11/13/17 06:45 Blood Peripheral Aerobic Blood Culture - Preliminary NO GROWTH IN 3 DAYS Resulted 11/13/17 06:45 Blood Peripheral Anaerobic Blood Culture - Preliminary NO GROWTH IN 3 DAYS Resulted 11/13/17 07:00 Sputum Endotracheal Gram Stain - Final Complete 11/13/17 07:00 Sputum Endotracheal Sputum Culture - Final HEAVY GROWTH NORMAL RESPIRATORY PA Complete 11/13/17 07:05 Urine Random Urine Urine Culture - Final NO GROWTH IN 48 HOURS. Complete Imaging Last Impressions Chest X-Ray 11/16/17 0600 Signed Impressions: Service Date/Time: Thursday, November 16, 2017 03:34 - CONCLUSION: 1. Status post extubation and removal of nasogastric tube. 2. Mild patchy perihilar and bibasilar opacities which appear slightly increased from the prior study. Shar Pandey MD CT Angiography 11/13/17 0000 Signed Impressions: Service Date/Time: Monday, November 13, 2017 09:06 - CONCLUSION: 1. Minimal airspace disease left base without consolidation 2. No significant pleural effusion 3. No central pulmonary emboli Brown Márquez MD FACR Physical Exam HEENT: Normocephalic; atraumatic CHEST: Even/unlabored CARDIAC: RRR ABDOMEN: Soft, nondistended, bowel sounds active SKIN: Normal; no rash; no jaundice. FUR FARMER: Lethargic, nonverbal (Anabell Linares) Assessment and Plan Assessment: (1) Dysphagia ICD Codes: R13.10 - Dysphagia, unspecified (2) Decreased oral intake ICD Codes: R63.8 - Other symptoms and signs concerning food and fluid intake (3) GERD (gastroesophageal reflux disease) ICD Codes: K21.9 - Gastro-esophageal reflux disease without esophagitis (4) Dementia ICD Codes: F03.90 - Unspecified dementia without behavioral disturbance (5) Aspiration pneumonia ICD Codes: J69.0 - Pneumonitis due to inhalation of food and vomit Plan Assessment: - Dysphagia- aspiration pneumonia- now extubated- no NGT MANAGER DELIVERY recommending NPO Barium swallow pending, planned for tomorrow - Anemia with no obvious GIB. H/H stable. - Mild leukocytosis - Resolved, Unasyn (11/17) Pt very lethargic today, nonverbal during my exam. Called and spoke with Thao regarding possibility of feeding tube, states she would like to wait for results of test tomorrow (Barium swallow) and see if pt regain some strength when he is more alert. She is not ready to agree to feeding tube at this time. Pt currently not receiving nutrition. Palliative care consult pending. Speech therapy has recommended to keep pt NPO at this time. Plan NPO Barium swallow tomorrow MANAGER DELIVERY following Would recommend GJ tube if feeding tube is decided on Will continue to follow- further recommendations dependent on clinical course, results of barium swallow, and 's wishes This patient has been seen and examined by myself and Dr. Paulson and this note is written on her behalf (Anabell Linares) Physician Comments agree with above (Renetta Paulson MD) Problem Qualifiers (1) Aspiration pneumonia: Anabell Linares Nov 17, 2017 10:01 Renetta Paulson MD Nov 17, 2017 14:23
[2017-11-18] VITALS (13 sets, daily range): BP systolic 138–197; BP diastolic 62–82; PULSE 54–85; RESP 17–28; TEMP 98.3–99.1; O2SAT 100
[2017-11-18] MEDS: METOPROLOL TARTRATE 5 MG/5 ML VIAL IV PUSH SCH ×5 (00:59→14:41)
[2017-11-18] MEDS: CHLORHEXIDINE GLUCONATE 2 % 1 PACK (2 CLOTHS) TOP SCH (01:54)
[2017-11-18] MEDS: AMPICILLIN-SULBACTAM INJ 3 GM in SODIUM CHLORIDE 0.9% INJ 100 ML IV SCH ×3 (03:21→14:40)
[2017-11-18] MEDS: RESP: ALBUTEROL 2.5 MG/IPRATROPIUM 0.5 MG NEB (SCH) INH ×3 (04:00→15:18)
[2017-11-18 04:03] LABS: HEMATOCRIT 35.4 % (39.0-51.0); MEAN CELL VOLUME 92.4 FL (80.0-100.0); MEAN CORPUSCULAR HEMOGLOBIN 31.4 PG (27.0-34.0); MEAN PLATELET VOLUME 7.6 FL (7.0-11.0); PLATELET COUNT 217 TH/MM3 (150-450); RED BLOOD COUNT 3.83 MIL/MM3 (4.50-5.90); RED CELL DISTRIBUTION WIDTH 13.2 % (11.6-17.2); WHITE BLOOD COUNT 9.1 TH/MM3 (4.0-11.0)
[2017-11-18 04:21] LABS: BICARBONATE 25.4 MEQ/L (21.0-32.0); CALCIUM 8.2 MG/DL (8.5-10.1); CREATININE 0.55 MG/DL (0.60-1.30)
[2017-11-18] MEDS: FAMOTIDINE 20 MG TAB NG SCH (07:21)
[2017-11-18] MEDS: ASPIRIN 81 MG CHEW TAB CHEW SCH (07:21)
[2017-11-18] MEDS: CHLORHEXIDINE 0.12% (ORAL KIT) 15 ML CUP MT SCH ×2 (09:04→20:00)
[2017-11-18] MEDS: SODIUM CHLORIDE 0.9% FLUSH 10 ML FLUSH IV FLUSH SCH (09:04)
--- NOTE | 2017-11-18 10:31 | RADRPT ---
EXAM DATE/TIME: 11/18/2017 00:00 [place] COMPARISON: No previous studies available for comparison. INDICATIONS : Dysphagia. Decreased mental status. FLUORO TIME: 1.6 minutes IMAGE COUNT: 0 CONTRAST: Dose as prescribed by speech pathologist. MEDICAL HISTORY : dementia SURGICAL HISTORY : unknown ENCOUNTER: Initial ACUITY: 4 - 6 days PAIN SCORE: Non-responsive. LOCATION: Bilateral neck FINDINGS: A modified barium swallow was performed with speech pathology. The patient was given a variety of liq uids to swallow. The patient had silent aspiration with thin and thick liquids. The study was terminated prematurely. For a full detailed report, see report by the speech pathologist. CONCLUSION: Aspiration. Shar Pandey MD on November 18, 2017 at 10:26 Board Certified Radiologist. This report was verified electronically.
[2017-11-18] MEDS: ENOXAPARIN SODIUM 40 MG/0.4 ML SYRINGE SQ SCH (10:36)
--- NOTE | 2017-11-18 14:46 | HHI.GIFU ---
Subjective Remarks Resting in the bed currently still has nasal trumpet in No family present Family appears very weak minimal responsiveness Afebrile (Kavitha Ballard) Objective Vitals I&O Vital Signs Date Time Temp Pulse Resp B/P (MAP) Pulse Ox O2 Delivery O2 Flow Rate FiO2 11/18/17 12:00 98.3 58 18 197/82 (120) 100 11/18/17 12:00 58 11/18/17 11:00 54 17 138/62 (87) 100 11/18/17 10:00 69 11/18/17 10:00 69 18 156/67 (96) 100 11/18/17 08:21 100 Nasal Cannula 2.00 11/18/17 08:00 62 11/18/17 08:00 98.4 62 21 176/74 (108) 100 11/18/17 06:00 67 11/18/17 04:00 56 11/18/17 04:00 98.7 56 17 177/82 (113) 100 11/18/17 02:00 54 11/18/17 00:00 71 11/18/17 00:00 99.1 71 28 173/80 (111) 100 11/17/17 22:00 65 11/17/17 21:03 100 Nasal Cannula 2.00 11/17/17 20:01 98.9 58 19 154/66 (95) 100 11/17/17 20:00 59 11/17/17 18:00 57 11/17/17 16:00 62 11/17/17 16:00 98.7 62 20 196/89 (124) 100 I/O 11/17/17 11/17/17 11/17/17 11/18/17 11/18/17 11/18/17 07:00 15:00 23:00 07:00 15:00 23:00 Intake Total 100 ml 200 ml 100 ml 100 ml Output Total 1050 ml 800 ml 800 ml Balance -950 ml -600 ml -700 ml 100 ml Intake Oral 0 ml 0 ml IV Total 100 ml 200 ml 100 ml 100 ml Output Urine Total 1050 ml 800 ml 800 ml # Bowel Movements 0 0 1 Laboratory Laboratory Tests Test 11/18/17 03:10 White Blood Count 9.1 Red Blood Count 3.83 Hemoglobin 12.0 Hematocrit 35.4 Mean Corpuscular Volume 92.4 Mean Corpuscular Hemoglobin 31.4 Mean Corpuscular Hemoglobin Concent 34.0 Red Cell Distribution Width 13.2 Platelet Count 217 Mean Platelet Volume 7.6 Blood Urea Nitrogen 17 Creatinine 0.55 Random Glucose 72 Calcium Level 8.2 Sodium Level 140 Potassium Level 3.5 Chloride Level 103 Carbon Dioxide Level 25.4 Anion Gap 12 Estimat Glomerular Filtration Rate 145 Date/Time Source Procedure Growth Status 11/13/17 06:45 Blood Peripheral Aerobic Blood Culture - Final NO GROWTH IN 5 DAYS Complete 11/13/17 06:45 Blood Peripheral Anaerobic Blood Culture - Final NO GROWTH IN 5 DAYS Complete 11/13/17 07:00 Sputum Endotracheal Gram Stain - Final Complete 11/13/17 07:00 Sputum Endotracheal Sputum Culture - Final HEAVY GROWTH NORMAL RESPIRATORY PA Complete 11/13/17 07:05 Urine Random Urine Urine Culture - Final NO GROWTH IN 48 HOURS. Complete Imaging Last Impressions Chest X-Ray 11/16/17 0600 Signed Impressions: Service Date/Time: Thursday, November 16, 2017 03:34 - CONCLUSION: 1. Status post extubation and removal of nasogastric tube. 2. Mild patchy perihilar and bibasilar opacities which appear slightly increased from the prior study. Shar Pandey MD CT Angiography 11/13/17 0000 Signed Impressions: Service Date/Time: Monday, November 13, 2017 09:06 - CONCLUSION: 1. Minimal airspace disease left base without consolidation 2. No significant pleural effusion 3. No central pulmonary emboli Brown Márquez MD FACR Physical Exam HEENT: Normocephalic; atraumatic, sunken cheekbones at rest CHEST: Even/unlabored , nasal trumpet intact CARDIAC: RRR ABDOMEN: Flat, Soft, nondistended, bowel sounds soft on 4 quads SKIN: Thin turgor; no rash; no jaundice. 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 (Kavitha Ballard) Assessment and Plan Assessment: (1) Dysphagia ICD Codes: R13.10 - Dysphagia, unspecified (2) Decreased oral intake ICD Codes: R63.8 - Other symptoms and signs concerning food and fluid intake (3) GERD (gastroesophageal reflux disease) ICD Codes: K21.9 - Gastro-esophageal reflux disease without esophagitis (4) Dementia ICD Codes: F03.90 - Unspecified dementia without behavioral disturbance (5) Aspiration pneumonia ICD Codes: J69.0 - Pneumonitis due to inhalation of food and vomit Plan Assessment: - Dysphagia- aspiration pneumonia- now extubated- no NGT CTO recommending NPO Barium swallow pending, planned for tomorrow - Anemia with no obvious GIB. H/H stable. - Mild leukocytosis - Resolved, Unasyn (11/17) Pt very lethargic today, nonverbal during my exam. Called and spoke with Thao regarding possibility of feeding tube, states she would like to wait for results of test tomorrow (Barium swallow) and see if pt regain some strength when he is more alert. She is not ready to agree to feeding tube at this time. Pt currently not receiving nutrition. Palliative care consult pending. Speech therapy has recommended to keep pt NPO at this time. 11/18/17, barium swallow per ST performed showing silent aspiration on thin and thick liquids. Still currently remains nothing by mouth. We'll need to discuss further possible PEG tube placement, palliative care consult is pending to help her through this difficult time. Current hemoglobin 12 obvious bleeding Plan NPO Consider PEG tube or GJ tube if is agreeable Appreciate palliative care input, consults pending CTO following Supportive care to patient and Will continue to follow- further recommendations dependent on and her wishes This patient has been seen and examined by myself and Dr. Proctor and this note is written on his behalf (Kavitha Ballard) Physician Comments Patient seen and examined Agree with above Continue with current supportive care Monitor labs (Luisito Proctor MD) Problem Qualifiers (1) Aspiration pneumonia: Kavitha Ballard Nov 18, 2017 14:46 Luisito Proctor MD Nov 18, 2017 20:59
--- NOTE | 2017-11-18 15:55 | PD.CONS ---
Consult Service Palliative Care Consult Requested By Dr. Santana. Primary Care Physician Ludwig Childs, DO Reason for Consultation a. To assist with evaluation and management of symptoms including: Shortness of breath, dysphagia, weakness. b. To assist medical decision maker(s) with: better understanding of current medical conditions; weighing benefits/burdens of medical treatment options; making medical treatment decisions. . HPI History of Present Illness Mr. Palm is a 77-year-old male with a medical history significant for advanced dementia. Patient presented to ED via EMS on 11/13/17 for evaluation of worsening shortness of breath. Patient recently discharged from [facility] on 11/12 where he was treated for pneumonia. As per EMS records, patient was found with oxygen saturation in the 60s [facility]. He was placed on a nonrebreather mask and was subsequently bagged by EMS in route to the ED. Clinical course complicated by respiratory failure requiring emergent endotracheal intubation. CTA revealing minimal airspace disease left base without consolidation. Negative for PE. Laboratory workup revealing WBC 10.4, Hgb 13.1, platelet count 307. Sodium 143, potassium 4.4, BUN/creatinine 30/1.20. Lactic acid 5.3. UA negative for nitrate, small leukocytes. Patient was admitted for further management of sepsis, pneumonia, respiratory failure and UTI. Patient was medically extubated on 11/14/17. Echocardiogram 11/15 revealing EF of 50-55%, trace mitral and tricuspid valve regurgitation. GI was consulted on 11/15/17 secondary to dysphagia, GJ tube recommended. Modifi revealing ed barium swallow eval 11/18/17 revealing severe pharyngeal phase dysphagia with aspiration of all consistencies, absent intermediate reflective cough response. Follow-up chest x-ray 11/16 revealing mild patchy perihilar and bibasilar opacities which appears slightly increased from prior study. Reviewed patient's past medical history. Recent hospitalization from 10/18/17 to 10/30/17 secondary to pneumonia, respiratory failure. Patient presented to ED on 10/12/17 secondary to behavioral disturbances, altered mental status. Patient was cleared for psychiatric evaluation. Clinical course complicated on 10/18/17 secondary to septic shock. Patient with temperature 103, hypertensive, hypoxemic and minimally responsive requiring emergent intubation and mechanical ventilation. Patient was transferred to critical care for further management and monitoring. Infectious disease, Dr. Dave consulted on 10/18/17 secondary to pneumonia, fever. UA negative for nitrates, large leukocytes. Urine culture positive for Proteus Mirabilis. Chest x-ray revealing mild right base infiltrate. EEG 10/20/17 abnormal secondary to generalized slowing suggesting bilateral structural abnormalities or moderate to severe diffuse disturbance of cerebral function. Head CT 10/20 negative for acute process. However, revealed chronic white matter changes. Brain MRI 10/20 revealing bilateral cortical atrophy and chronic white matter changes but negative for acute process. 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 Patient was extubated on 10/22/17 and transferred to medical floor. Clinical course complicated by overall debility and poor oral intake. Patient was discharged to [facility] for physical strengthening. On 11/06/17, patient was taken to [facility] while he was treated for aspiration pneumonia. Patient was discharge on 11/12/17 back to the [facility]. Patient seen in medical ICU. Resting in bed in no acute distress. Nasal trumpet in place, tolerating O2 via nasal cannula. Patient alert to self, was able to tell me his first name when asked in Belarusian. Very limited interaction , verbalization. Not following commands. Patient afebrile, hypertensive with SBP in the 150s-190s. Blood, sputum and urine cultures with no growth thus far. Case discussed with bedside RN Valeri. Met with patient's Linda. Patient/family known to palliative care provider from prior acute hospitalization. Reintroduced the role of palliative care in advanced illness in regards to symptom management as well as support surrounding goals of care and advance care planning. receptive to visit. Medical update provided to include barium swallow evaluation results. Reviewed events leading to this hospitalization, clinical course and current medical management. Share concerns with patient's clinical condition to include advanced dementia, multiple recent hospitalizations, persistent episodes of aspiration pneumonia, worsening dysphagia, cachexia, profound physical deconditioning. Reviewed patient's diagnosis of severe dementia. Discussed likely illness trajectory to include continued decline, additional complications and . verbalized that patient's quality of life is to remain goal. Reviewed continuation of aggressive management to include feeding tube placement vs transition patient to comfort-directed care with hospice. Goal of therapy remain aggressive to include full code while family further discuss goals of care. Family strongly considering comfort-directed care with hospice, hospice referral sent. Palliative care to meet with patient's family tomorrow 11/18 in the afternoon. . Function/Cognitive Trajectory Patient with progressive physical decline secondary to severe dementia. Requiring assistance with ADLs, able to feed himself. Cognitive decline. At the [facility] prior to this hospitalization. . Review of Systems ROS Limitations: Clinical Condition, Altered Mental Status Constitutional: COMPLAINS OF: Weight loss, Change in appetite, DENIES: Fever, Night Sweats Eyes: DENIES: Eye inflammation Ears, nose, mouth, throat: DENIES: Hearing loss, Nasal discharge, Oral lesions , Running Nose, Epistaxis Respiratory: COMPLAINS OF: Cough, Sputum production, Shortness of breath Cardiovascular: DENIES: Lower Extremity Edema Gastrointestinal: COMPLAINS OF: Difficulty Swallowing, DENIES: Bloody stools, Nausea, Vomiting Genitourinary: COMPLAINS OF: Urinary incontinence, DENIES: Hematuria Musculoskeletal: DENIES: Stiffness Integumentary: DENIES: Abnormal pigmentation, Tumors Hematologic/Lymphatics: COMPLAINS OF: Bruising Immunologic/Allergic: DENIES: Eczema Neurologic: COMPLAINS OF: Abnormal gait, DENIES: Localized weakness, Tremor Psychiatric: COMPLAINS OF: Anxiety, Confusion, Agitation Past Family Social History Coded Allergies: No Known Allergies (Unverified , 10/12/17) Past Medical History Advanced dementia with behavioral disturbances Hyperlipidemia GERD Constipation BPH Recurrent aspiration pneumonia . Past Surgical History None. . Reported Medications Clonazepam 0.5 Mg Tab 0.5 Mg PO BID Tamsulosin (Tamsulosin HCl) 0.4 Mg Cap 0.4 Mg PO HS Finasteride 5 Mg Tab 5 Mg DAILY Vitamin D3 (Cholecalciferol) 1,000 Unit Tab 1,000 Units PO DAILY Simvastatin 20 Mg Tab 20 Mg PO DAILY Donepezil 10 Mg Tab 10 Mg PO HS Omeprazole 20 Mg Tab 20 Mg PO DAILY Aspirin 81 Mg Chew 81 Mg CHEW DAILY . Current Medications Medications (Trade) Dose Ordered Sig/Alan Route Start Time Stop Time Status Last Admin (NS Flush) 2 ml UNSCH PRN IV FLUSH 11/13/17 07:00 (NS Flush) 2 ml BID IV FLUSH 11/13/17 09:00 11/18/17 09:04 (Albuterol Neb) 2.5 mg Q2HR NEB PRN INH 11/13/17 07:00 11/15/17 15:37 (Peridex 0.12% Liq) 15 ml BID@08,20 MT 11/13/17 08:00 11/18/17 09:04 (Lovenox Inj) 40 mg Q24H SQ 11/13/17 08:00 11/18/17 10:36 Miscellaneous Information 1 Q361D XX 11/13/17 07:00 11/13/17 07:00 (Chlorhexidine 2% Cloth) 3 pack Taper DAILY@04 TOP 11/14/17 04:00 11/10/18 03:59 11/18/17 01:54 (Chlorhexidine 2% Cloth) 3 pack UNSCH PRN TOP 11/13/17 07:00 Sodium Chloride 1,000 ml @ 999 mls/hr BOLUS IV 11/13/17 12:15 11/13/17 18:22 (Aspirin Chew) 81 mg DAILY CHEW 11/14/17 09:00 11/14/17 09:12 Potassium Chloride 100 ml @ 50 mls/hr Q2H PRN IV 11/14/17 09:45 Potassium Chloride 100 ml @ 50 mls/hr Q2H PRN IV 11/14/17 09:45 11/15/17 19:41 (K-Lyte Cl Eff) 50 meq UNSCH PRN PO 11/14/17 09:45 Potassium Chloride 100 ml @ 25 mls/hr UNSCH PRN IV 11/14/17 09:45 Potassium Chloride 100 ml @ 50 mls/hr Q2H PRN IV 11/14/17 09:45 11/17/17 10:43 Magnesium Sulfate 4 gm/Sodium Chloride 100 ml @ 50 mls/hr UNSCH PRN IV 11/14/17 09:45 (Mag-Ox) 800 mg UNSCH PRN PO 11/14/17 09:45 Magnesium Sulfate 2 gm/Sodium Chloride 100 ml @ 50 mls/hr UNSCH PRN IV 11/14/17 09:45 (K-Phos) 2,000 mg Q4H PRN PO 11/14/17 09:45 Sodium Phosphate 30 mmol/Sodium Chloride 250 ml @ 42 mls/hr UNSCH PRN IV 11/14/17 09:45 (K-Phos) 2,000 mg UNSCH PRN PO/TUBE 11/14/17 09:45 Potassium Phosphate 30 mmol/ Sodium Chloride 260 ml @ 42 mls/hr UNSCH PRN IV 11/14/17 09:45 (Duoneb Neb) 1 ampule Q6HR NEB INH 11/16/17 10:00 11/18/17 08:20 (Pepcid) 20 mg BID NG 11/16/17 09:00 Ampicillin Sodium/ Sulbactam Sodium 3 gm/Sodium Chloride 100 ml @ 200 mls/hr Q6H IV 11/16/17 09:00 11/20/17 08:59 11/18/17 14:40 (Lopressor Inj) 5 mg Q4H IV PUSH 11/16/17 09:00 11/18/17 14:41 Family History Mother with gastric cancer. . Substance Use Tobacco: None. Alcohol: None. Prescription med abuse: None. Illicits: None. . Psychosocial History Patient is originally from [place]. Moved to [place] at age 9. He is with current for the past 17 years. They have no children together. Patient has 3 biological children in [place]. . Spiritual/Cultural Factors Jehovah witness. . Living Will: Copy in medical record Health Care Surrogate: Copy in medical record Date completed: 06/05/2016. . Health Care Surrogate(s): Patient electing Linda Alarcon as healthcare surrogate decision maker. Alternate surrogate his daughter Benita Jones. . Documented care wishes: Living will with standard verbiage as it pertains to life-prolonging measures if his situation is "hopeless". Patient is Jehovah witness. Requires NO transfusions of whole blood, red cells, white cells, platelets or plasma. . Family/friends goals: Full code. Continue aggressive management. . Ethical and Legal Issues No ethical legal issues identified. . Physical Exam Vital Signs Date Time Temp Pulse Resp B/P (MAP) Pulse Ox O2 Delivery O2 Flow Rate FiO2 11/18/17 14:00 62 11/18/17 12:00 98.3 58 18 197/82 (120) 100 11/18/17 12:00 58 11/18/17 11:00 54 17 138/62 (87) 100 11/18/17 10:00 69 11/18/17 10:00 69 18 156/67 (96) 100 11/18/17 08:21 100 Nasal Cannula 2.00 11/18/17 08:00 62 11/18/17 08:00 98.4 62 21 176/74 (108) 100 11/18/17 06:00 67 11/18/17 04:00 56 11/18/17 04:00 98.7 56 17 177/82 (113) 100 11/18/17 02:00 54 11/18/17 00:00 71 11/18/17 00:00 99.1 71 28 173/80 (111) 100 11/17/17 22:00 65 11/17/17 21:03 100 Nasal Cannula 2.00 11/17/17 20:01 98.9 58 19 154/66 (95) 100 11/17/17 20:00 59 11/17/17 18:00 57 11/17/17 16:00 62 11/17/17 16:00 98.7 62 20 196/89 (124) 100 11/18/17 11/19/17 19:00 07:00 Intake Total 100 ml Balance 100 ml IV Total 100 ml Exam CONSTITUTIONAL/GENERAL: This is an cachectic, elderly man resting in bed in no acute distress. TUBES/LINES/DRAINS: Nasal cannula, PIV, nasal trumpet to right nare. SKIN: No jaundice, rashes, or lesions. Ecchymoses on upper extremities. No wounds seen anteriorly. Skin temperature appropriate. Not diaphoretic. HEAD: Atraumatic. Normocephalic. EYES: Pupils equal and round and reactive. Extraocular motions intact. No scleral icterus. No injection or drainage. ENT: Hearing grossly normal. Nose without bleeding or purulent drainage. Moist oral mucosa, dry lips. NECK: Trachea midline. Supple, nontender. CARDIOVASCULAR: Regular rate and rhythm without murmurs, gallops, or rubs. No JVD. Peripheral pulses symmetric. RESPIRATORY/CHEST: Symmetric, unlabored respirations. Coarse breath sounds bilaterally. GASTROINTESTINAL: Abdomen soft, non-tender, nondistended. No guarding. Bowel sounds present. GENITOURINARY: Without palpable bladder distension. Aleman catheter in place. MUSCULOSKELETAL: Extremities without clubbing, cyanosis, or edema. No mottling or clubbing. NEUROLOGICAL: Awake and alert to self. Confused as to place, time and situation. Not following commands. PSYCHIATRIC: Unable to evaluate secondary to clinical condition. Appears calm. . Diagnostic Tests Laboratory Laboratory Tests Test 11/16/17 10:33 11/17/17 05:15 11/18/17 03:10 White Blood Count 9.9 TH/MM3 (4.0-11.0) 8.9 TH/MM3 (4.0-11.0) 9.1 TH/MM3 (4.0-11.0) Red Blood Count 3.45 MIL/MM3 (4.50-5.90) 3.59 MIL/MM3 (4.50-5.90) 3.83 MIL/MM3 (4.50-5.90) Hemoglobin 10.9 GM/DL (13.0-17.0) 11.4 GM/DL (13.0-17.0) 12.0 GM/DL (13.0-17.0) Hematocrit 32.6 % (39.0-51.0) 33.4 % (39.0-51.0) 35.4 % (39.0-51.0) Mean Corpuscular Volume 94.6 FL (80.0-100.0) 93.1 FL (80.0-100.0) 92.4 FL (80.0-100.0) Mean Corpuscular Hemoglobin 31.5 PG (27.0-34.0) 31.7 PG (27.0-34.0) 31.4 PG (27.0-34.0) Mean Corpuscular Hemoglobin Concent 33.3 % (32.0-36.0) 34.0 % (32.0-36.0) 34.0 % (32.0-36.0) Red Cell Distribution Width 13.7 % (11.6-17.2) 13.7 % (11.6-17.2) 13.2 % (11.6-17.2) Platelet Count 172 TH/MM3 (150-450) 173 TH/MM3 (150-450) 217 TH/MM3 (150-450) Mean Platelet Volume 7.5 FL (7.0-11.0) 8.1 FL (7.0-11.0) 7.6 FL (7.0-11.0) Neutrophils (%) (Auto) 90.1 % (16.0-70.0) Lymphocytes (%) (Auto) 5.6 % (9.0-44.0) Monocytes (%) (Auto) 3.5 % (0.0-8.0) Eosinophils (%) (Auto) 0.4 % (0.0-4.0) Basophils (%) (Auto) 0.4 % (0.0-2.0) Neutrophils # (Auto) 8.9 TH/MM3 (1.8-7.7) Lymphocytes # (Auto) 0.6 TH/MM3 (1.0-4.8) Monocytes # (Auto) 0.3 TH/MM3 (0-0.9) Eosinophils # (Auto) 0.0 TH/MM3 (0-0.4) Basophils # (Auto) 0.0 TH/MM3 (0-0.2) CBC Comment DIFF FINAL Differential Comment Blood Urea Nitrogen 15 MG/DL (7-18) 14 MG/DL (7-18) 17 MG/DL (7-18) Creatinine 0.63 MG/DL (0.60-1.30) 0.47 MG/DL (0.60-1.30) 0.55 MG/DL (0.60-1.30) Random Glucose 80 MG/DL (74-106) 68 MG/DL (74-106) 72 MG/DL (74-106) Total Protein 6.6 GM/DL (6.4-8.2) Albumin 2.4 GM/DL (3.4-5.0) Calcium Level 8.4 MG/DL (8.5-10.1) 8.1 MG/DL (8.5-10.1) 8.2 MG/DL (8.5-10.1) Alkaline Phosphatase 67 U/L (45-117) Aspartate Amino Transf (AST/SGOT) 26 U/L (15-37) Alanine Aminotransferase (ALT/SGPT) 22 U/L (12-78) Total Bilirubin 0.5 MG/DL (0.2-1.0) Sodium Level 142 MEQ/L (136-145) 140 MEQ/L (136-145) 140 MEQ/L (136-145) Potassium Level 3.3 MEQ/L (3.5-5.1) 3.3 MEQ/L (3.5-5.1) 3.5 MEQ/L (3.5-5.1) Chloride Level 108 MEQ/L (98-107) 103 MEQ/L (98-107) 103 MEQ/L (98-107) Carbon Dioxide Level 22.6 MEQ/L (21.0-32.0) 25.4 MEQ/L (21.0-32.0) 25.4 MEQ/L (21.0-32.0) Anion Gap 11 MEQ/L (5-15) 12 MEQ/L (5-15) 12 MEQ/L (5-15) Estimat Glomerular Filtration Rate 124 ML/MIN (>89) 174 ML/MIN (>89) 145 ML/MIN (>89) Result Diagram: 11/18/17 0310 11/18/17 0310 Microbiology Microbiology Date/Time Source Procedure Growth Status 11/13/17 06:45 Blood Peripheral Aerobic Blood Culture - Final NO GROWTH IN 5 DAYS Complete 11/13/17 06:45 Blood Peripheral Anaerobic Blood Culture - Final NO GROWTH IN 5 DAYS Complete 11/13/17 07:00 Sputum Endotracheal Gram Stain - Final Complete 11/13/17 07:00 Sputum Endotracheal Sputum Culture - Final HEAVY GROWTH NORMAL RESPIRATORY PA Complete 11/13/17 07:05 Urine Random Urine Urine Culture - Final NO GROWTH IN 48 HOURS. Complete Imaging Last Impressions Chest X-Ray 11/16/17 0600 Signed Impressions: Service Date/Time: Thursday, November 16, 2017 03:34 - CONCLUSION: 1. Status post extubation and removal of nasogastric tube. 2. Mild patchy perihilar and bibasilar opacities which appear slightly increased from the prior study. Shar Pandey MD CT Angiography 11/13/17 0000 Signed Impressions: Service Date/Time: Monday, November 13, 2017 09:06 - CONCLUSION: 1. Minimal airspace disease left base without consolidation 2. No significant pleural effusion 3. No central pulmonary emboli Brown Márquez MD FACR Procedures * 11/13/17 -intubation * 11/14/17 -medical extubation . Patient/Family Conference Present at Family Conference: Linda. Family Conference Time (mins): 44 Family Conference Location: Consult Room Issues Discussed: * Palliative care role, purpose, approach * Additional medical, psychosocial, and spiritual history * Patients general health, functional status, and cognitive changes in the months leading up to the current hospitalization * Patient/family understanding of the current medical problems * Patient/family understanding of prognosis * Patients goals of care as best understood from advance directives and/or conversations and/or values * Current medical treatment options and benefits/burdens of those options * Likely scenarios comparing ongoing aggressive care with a transition to comfort measures only * Questions answered to the best of my ability * Palliative care contact information provided * Risks, benefits and limitations of CPR, intubation and mechanical ventilation * Hospice philosophy and benefits . Assessment and Plan Disease Oriented Problem List: (1) Aspiration pneumonia (2) Severe sepsis (3) Dementia (4) Dysphagia (5) UTI (urinary tract infection) Symptom Scale: (1) Debility 0-10 Scale: Unable to quantify (2) Shortness of breath 0-10 Scale: Unable to quantify Pertinent Non-Medical Issues Psychosocial: Patient is originally from [place]. Moved to [place] at age 9. He is with current for the past 17 years. They have no children together. Patient has 3 biological children in [place]. Spiritual: Jehovah witness. Legal: Advance directives completed. Ethical issues impacting care: Baseline dementia. Patient's acting as healthcare surrogate decision maker. . Important Contacts Linda Alarcon , . . Prognosis Mr. Palm it is a 77-year-old male with a medical history significant for advanced dementia as well as multiple chronic comorbidities. Patient being treated for recurrent aspiration pneumonia. Clinical course complicated by respiratory failure, sepsis. Patient is cachectic, debilitated. At very high risk for further complications, continued decline and . He appears hospice appropriate should family elects comfort-directed care. . Code Status: Full Code Plan * CODE STATUS: FULL code. * HEALTHCARE DECISION-MAKING: Patient unable to participate in medical decision making secondary to advanced dementia. Advance directives completed. Patient elected Linda Alarcon as healthcare surrogate decision maker.Alternate surrogate is daughter Benita Jones. Linda has fully accepted this role. * GOALS OF CARE: As per , goal of therapy is to continue aggressive management while family discusses goals of care. Family considering transitioning patient to comfort-directed care with hospice given advanced dementia. Hospice referral made. Family not likely to proceed with feeding tube. Palliative care to follow-up with patient's tomorrow 11/19 in the afternoon. * SYMPTOMS: =dysphagia/poor oral intake: Speech therapy following. Patient is cachectic, debilitated. Failed barium swallow evaluation 11/18, GI has been consulted for GJ tube, family not likely to proceed with feeding tube placement. = Dyspnea: Secondary to aspiration pneumonia, respiratory failure, sepsis. Patient extubated 11/14. Currently tolerating O2 via nasal cannula. = Debility: Exacerbated by acute illness, prolonged hospitalization. Patient is cachectic, appears debilitated. Having difficulties with holding his torso straight up. Not likely to improve given advanced dementia, acute illness and prolonged hospitalization. * Case discussed with bedside RN Valeri. * Palliative care contact information has been provided to patient's family. * Palliative care will continue to follow up as needed for further clarifications of goals of care as patient's clinical course continues to evolve. . Time Spent Total Floor Time (mins): 71 (Total time to include review and summarization of available medical records to include multiple prior admissions, physical exam, goals of care conversation with patient's family, case discussion with bedside RN.) >50% Counseling/Coord of Care: Yes Thank you for the opportunity to participate in the care of Mr. Palm. Attestation To help prompt me to consider important information that might be impacting today's encounter and assessment, information from prior notes written by myself or my colleagues may have been "brought forward" into today's note. My signature on this note, however, is an attestation that I personally performed the exam, history, and/or decision-making noted today, and, unless otherwise indicated, the interactions with patient, family, and staff as well as the review of records all occurred today. I also attest that the listed assessment and stated plan reflect my best clinical judgment today based on the combination of historical information, prior notes, and today's exam/ interactions. When time spent is documented, it refers only to time spent today by the signer, or if indicated, combined time spent today by collaborating physician/nurse practitioner. Randi Royal Nov 18, 2017 15:55
--- NOTE | 2017-11-18 16:13 | HHI.CCPN ---
Subjective Remarks/Hospital Course Patient is a 77-year-old male with past medical history significant for recurrent aspiration pneumonia, advanced dementia who was brought in by EMS from care home due to severe acute shortness of breath and severe hypoxemia. Patient was admitted to [facility] from October 18 - October 31, 2017 for hypoxemic respiratory failure from aspiration pneumonia. Patient was discharged to care home and then got admitted to [facility] per for aspiration pneumonia, and was just discharged from care home yesterday. Int the NH, EMS noted O2 saturations of 64% on nasal cannula O2. The patient was placed on a nonrebreather mask and his saturations only went up to the mid 70s, then was bagged and brought to [place]. Intubated in the ED by Dr. Haile. CXR did not show any acute infiltrate, CT pulmonary angiogram did not show a PE but showed left lower lobe airspace disease. Patient received a dose of vancomycin and Zosyn in the ED. I evaluated the patient in the ICU. Patient received 1 L fluid bolus in the ED. Lactic acid came back at 5.3 and additional 2L NS ordered. We will place on Zosyn 4.5 g IV every 6 hours. UA shows also evidence of UTI. I discussed with and explained to her in detail swallow evaluation for aspiration is warranted after extubation, patient is at high risk of recurrent aspiration due to advanced dementia SUBJ 11/14: Remains intubated heavily sedated. On propofol do not follow commands. BUN creat improving. Lactic acid pending 11/15: Extubated yesterday tolerating well respiratory chao. Moving extremities do not follow commands. Awake but nonverbal. Speech therapy consult requested to evaluate for aspiration, may need modified barium swallow. GI jimmy, for possible PEG placement if there is evidence of aspiration. Family has stated that they want everything done 11/16: remains extubated. nasal trumpet still in place. awake. nonverbal. NPO per speech therapy. G/J recommended by GI on Saturday. 11/18: Remains on nasal cannula and nasal trumpet in place. Modified barium swallow showed aspiration on thin and thick liquids. Family meeting with palliative care to address goals of care including feeding tube Objective Vital Signs Date Time Temp Pulse Resp B/P (MAP) Pulse Ox O2 Delivery O2 Flow Rate FiO2 11/18/17 14:00 62 11/18/17 12:00 98.3 18 197/82 (120) 100 11/18/17 08:21 Nasal Cannula 2.00 11/14/17 16:00 35 Intake and Output 11/18/17 11/18/17 11/19/17 08:00 16:00 00:00 Intake Total 100 ml 100 ml Output Total 800 ml Balance -700 ml 100 ml Result Diagram: 11/18/17 0310 11/18/[address] PE protocol -left basilar airspace disease Objective Remarks General: Patient is a cachectic elderly male who is lying in bed. Head: is normocephalic atraumatic. Eyes: Pupils are 2 mm equal ENT: Oral cavity is dry airway patent. nasal trumpet in place Neck: supple CVS: tachycardic rate, regular rhythm. sinus by tele. Resp: Decreased breath sounds in bilateral lung bases. equal chest rise. Abdomen: Soft, without tenderness to palpation. No guarding, rebound, or rigidity. Extremities: No clubbing, cyanosis, or edema. 2+ pulses in all 4 extremities. Neuro: Patient is awake spontaneously opens eyes tracks nonverbal, spontaneously moves extremities. He does not follow commands A/P Assessment and Plan Assessment: 77yM with severe dementia and multiple recent hospitalizations. overall clinical course is one of severe functional and medical decline over past 2 months. Unlikely to have good long-term prognosis and likely this is the start of his dying process. Family continues to press towards aggressive goals of care. will need long-term G/J tube and if he fails extubation will require tracheostomy. Failed modified barium swallow today Assessment and Plan NEURO: Acute metabolic encephalopathy Dementia Off all continuos sedation Resume Donepezil once enteral access obtained. RESP: Acute hypoxemic respiratory failure- resolved Recurrent aspiration pneumonia DuoNeb every 6 hours and as needed Sputum culture neg to date abx per below Will not cooperate with EzPAP or Acapella CV: Lactic acidosis-resolved Hyperlipidemia Monitor hemodynamics. Not requiring pressors. IV fluid discontinued Trend lactic acid Continue aspirin 81 mg daily. Holding simvastatin GI: Strict NPO MS today showed aspiration with thick and thin fluids GI consulted for evaluation for GJ tube placement-Await family decision after palliative care meeting Bowel regimen IV famotidine for GI prophylaxis FEN/RENAL: Acute kidney insufficiency - resolving BPH Concepcion in place. Monitor electrolytes. Replace as indicated per ICU electrolyte replacement protocol. d/c concepcion. condom cath if needed. ID: Aspiration pneumonia Urinary tract infection Sepsis Follow-up on blood sputum and urine culture-negative to date Received 1 dose of vancomycin and Zosyn in the ED, transition to Unasyn today ( cultures NGTD x 48h.): plan for full 7 day course (anticipated stop date 11/19) HEME: Monitor CBC ENDO: Electrolyte replacement per protocol PROPH: Lovenox subcu for DVT prophylaxis. Famotidine for stress ulcer prophylaxis. ACCESS: Use peripheral IV Patient is extubated improved but need further workup for recurrent aspiration pneumonia. Continue ICU care due to altered mentation high risk of decompensation Patient has evidence of aspiration on modified barium swallow. Await decision re goals of care Wilmar Montiel MD Nov 18, 2017 16:13
--- NOTE | 2017-11-19 10:00 | HHI.DS ---
Discharge Summary Admission Date Nov 13, 2017 at 06:59 Admitting Diagnosis Respiratory Failure, Pneumonia (1) Severe sepsis ICD Code: A41.9 - Sepsis, unspecified organism; R65.20 - Severe sepsis without septic shock Diagnosis: Principal (2) Acute hypoxemic respiratory failure ICD Code: J96.01 - Acute respiratory failure with hypoxia Diagnosis: Principal (3) Aspiration pneumonia ICD Code: J69.0 - Pneumonitis due to inhalation of food and vomit Diagnosis: Principal (4) UTI (urinary tract infection) ICD Code: N39.0 - Urinary tract infection, site not specified Diagnosis: Principal (5) Encephalopathy ICD Code: G93.40 - Encephalopathy, unspecified Diagnosis: Principal (6) Hyperlipidemia ICD Code: E78.5 - Hyperlipidemia, unspecified Diagnosis: Secondary (7) Dementia ICD Code: F03.90 - Unspecified dementia without behavioral disturbance Diagnosis: Secondary Procedures See EMR Brief History Patient is a 77-year-old male with past medical history significant for recurrent aspiration pneumonia, advanced dementia who was brought in by EMS from longterm due to severe acute shortness of breath and severe hypoxemia. Patient was admitted to [facility] from October 18 - October 31, 2017 for hypoxemic respiratory failure from aspiration pneumonia. Patient was discharged to longterm and then got admitted to [facility] per for aspiration pneumonia, and was just discharged from longterm yesterday. Int the ID, EMS noted O2 saturations of 64% on nasal cannula O2. The patient was placed on a nonrebreather mask and his saturations only went up to the mid 70s, then was bagged and brought to [place]. Intubated in the ED by Dr. Haile. CXR did not show any acute infiltrate, CT pulmonary angiogram did not show a PE but showed left lower lobe airspace disease. Patient received a dose of vancomycin and Zosyn in the ED I evaluated the patient in the ICU. Patient received 1 L fluid bolus in the ED. Lactic acid came back at 5.3 and additional 2L NS ordered. We will place on Zosyn 4.5 g IV every 6 hours. UA shows also evidence of UTI. I discussed with and explained to her in detail swallow evaluation for aspiration is warranted after extubation, patient is at high risk of recurrent aspiration due to advanced dementia CBC/BMP: 11/18/17 0310 11/18/17 0310 Significant Findings Laboratory Tests Test 11/16/17 10:33 11/17/17 05:15 11/18/17 03:10 Red Blood Count 3.45 MIL/MM3 (4.50-5.90) 3.59 MIL/MM3 (4.50-5.90) 3.83 MIL/MM3 (4.50-5.90) Hemoglobin 10.9 GM/DL (13.0-17.0) 11.4 GM/DL (13.0-17.0) 12.0 GM/DL (13.0-17.0) Hematocrit 32.6 % (39.0-51.0) 33.4 % (39.0-51.0) 35.4 % (39.0-51.0) Neutrophils (%) (Auto) 90.1 % (16.0-70.0) Lymphocytes (%) (Auto) 5.6 % (9.0-44.0) Neutrophils # (Auto) 8.9 TH/MM3 (1.8-7.7) Lymphocytes # (Auto) 0.6 TH/MM3 (1.0-4.8) Albumin 2.4 GM/DL (3.4-5.0) Calcium Level 8.4 MG/DL (8.5-10.1) 8.1 MG/DL (8.5-10.1) 8.2 MG/DL (8.5-10.1) Potassium Level 3.3 MEQ/L (3.5-5.1) 3.3 MEQ/L (3.5-5.1) Chloride Level 108 MEQ/L (98-107) Creatinine 0.47 MG/DL (0.60-1.30) 0.55 MG/DL (0.60-1.30) Random Glucose 68 MG/DL (74-106) 72 MG/DL (74-106) Imaging Modified barium swallow showed aspiration with thick and thin liquids PE at Discharge General: Patient is a cachectic elderly male who is lying in bed. Head: is normocephalic atraumatic. Eyes: Pupils are 2 mm equal ENT: Oral cavity is dry airway patent. nasal trumpet in place Neck: supple CVS: tachycardic rate, regular rhythm. sinus by tele. Resp: Decreased breath sounds in bilateral lung bases. equal chest rise. Abdomen: Soft, without tenderness to palpation. No guarding, rebound, or rigidity. Extremities: No clubbing, cyanosis, or edema. 2+ pulses in all 4 extremities. Neuro: Patient is awake spontaneously opens eyes tracks nonverbal, spontaneously moves extremities. He does not follow commands Transfer Summary Patient is a 77-year-old male with past medical history significant for recurrent aspiration pneumonia, advanced dementia who was brought in by EMS from longterm due to severe acute shortness of breath and severe hypoxemia. Patient was admitted to [facility] from October 18 - October 31, 2017 for hypoxemic respiratory failure from aspiration pneumonia. Patient was discharged to longterm and then got admitted to [facility] per for aspiration pneumonia, and was just discharged from longterm yesterday. Int the NH, EMS noted O2 saturations of 64% on nasal cannula O2. The patient was placed on a nonrebreather mask and his saturations only went up to the mid 70s, then was bagged and brought to [place]. Intubated in the ED by Dr. Haile. CXR did not show any acute infiltrate, CT pulmonary angiogram did not show a PE but showed left lower lobe airspace disease. Patient received a dose of vancomycin and Zosyn in the ED. I evaluated the patient in the ICU. Patient received 1 L fluid bolus in the ED. Lactic acid came back at 5.3 and additional 2L NS ordered. We will place on Zosyn 4.5 g IV every 6 hours. UA shows also evidence of UTI. I discussed with and explained to her in detail swallow evaluation for aspiration is warranted after extubation, patient is at high risk of recurrent aspiration due to advanced dementia SUBJ 11/14: Remains intubated heavily sedated. On propofol do not follow commands. BUN creat improving. Lactic acid pending 11/15: Extubated yesterday tolerating well respiratory chao. Moving extremities do not follow commands. Awake but nonverbal. Speech therapy consult requested to evaluate for aspiration, may need modified barium swallow. GI eval, for possible PEG placement if there is evidence of aspiration. Family has stated that they want everything done 11/16: remains extubated. nasal trumpet still in place. awake. nonverbal. NPO per speech therapy. G/J recommended by GI on Saturday. 11/18: Remains on nasal cannula and nasal trumpet in place. Modified barium swallow showed aspiration on thin and thick liquids. Family met with palliative care to address goals of care including feeding tube. Because of overall poor prognosis family opted for hospice and patient was discharged to hospice Hospital Course See transfer summary Pt Condition on Discharge: Deteriorating Discharge Disposition: Hospice/Med Facility Discharge Instructions DIET: Follow Instructions for: Nothing By Mouth Activities you can perform: See Additionl Instruction Other Activity Instructions: Per Hospice Wilmar Montiel MD Nov 19, 2017 10:00
--- NOTE | 2017-11-25 09:30 | PQ ---
Physician Query Response Document PATIENT: ELIZABETH MOCTEZUMA : 1940 ADMIT DATE: 11/13/2017 6:59 AM DISCH DATE: 11/18/2017 8:30 PM RESPONDING PROVIDER #: [email or web address] QUERY TEXT: CDS Clarification Severe protein-calorie malnutrition in the setting of "Cachectic" and NPO x 3 days treated with NPO-> Ventilator, IVF and IV supplements Other explanation of clinical findings. Unable to determine (no explanation for clinical findings). The patient's Clinical Indicators include: The medical record reflects the following clinical findings, treatment, and risk factors. * Clinical Indicators: "Cachectic" and NPO x 3 days * Risk Factors: Ventilator x 3 days * Treatment: NPO-> Ventilator, IVF and IV supplements Please clarify and document your clinical opinion in the progress notes and discharge summary includi ng the definitive and/or presumptive diagnosis (suspected or probable), related to the above clinical findings. Please include clinical findings supporting your diagnosis. Thank you, Saskia Cardenas CDS/RN ext. [phone] Query created by: Saskia Cardenas on 11/15/2017 8:05 AM RESPONSE TEXT: Patient has evidence of severe protein energy malnutrition Electronically signed by: Wilmar Montiel MD 11/24/2017 3:52 PM
== END 2017-11-18 20:30 | disposition hospice, inpatient (51) | DRG 208 ==
LOC: NEPE 06:16 → NEDA 06:59 → HIMN 09:30
PROVIDERS: ADMIT Internal Medicine; ATTEND Internal Medicine
PROC: 0BH17EZ Insertion of Endotracheal Airway into Trachea, Via Natural or Artificial Opening (ICD-10-PCS; principal; 2017-11-13)
PROC: 5A1945Z Respiratory Ventilation, 24-96 Consecutive Hours (ICD-10-PCS; 2017-11-13)
DX: J96.01 Acute respiratory failure with hypoxia (principal); J69.0 Pneumonitis due to inhalation of food and vomit; R65.20 Severe sepsis without septic shock; E43 Unspecified severe protein-calorie malnutrition; Z68.1 Body mass index [BMI] 19.9 or less, adult; A41.9 Sepsis, unspecified organism; G93.41 Metabolic encephalopathy; R64 Cachexia; N39.0 Urinary tract infection, site not specified; R13.10 Dysphagia, unspecified; E78.5 Hyperlipidemia, unspecified; F03.90 Unspecified dementia, unspecified severity, without behavioral disturbance, psychotic disturbance, mood disturbance, and anxiety; Z51.5 Encounter for palliative care; K21.9 Gastro-esophageal reflux disease without esophagitis; N28.9 Disorder of kidney and ureter, unspecified; Z78.1 Physical restraint status; D64.9 Anemia, unspecified
CPT/HCPCS: 31500; 36600; 43753; 51702; 71045; 71275; 74230; 80048; 80053; 81001; 82550; 82552; 82805; 83605; 83690; 83735; 83880; 84100; 84484; 85007; 85025; 85027; 85610; 85730; 86140; 87040; 87070; 87086; 87205; 93005; 93306; 94002; 94003; 94150; 94640; 94664; 96374; 96375; J0295; J0330; J1650; J1940; J2250; J2310; J2543; J3370; J3480; J7030; J7050; J7613; Q9967